=== PATIENT | male | born 1960 | race Hispanic/Latino ===

== ENCOUNTER 2017-02-12 14:01 | Inpatient (IN) | payer MEDICARE, MEDICAID ==
[2017-02-12 14:02] VITALS: BMI 24.1
[2017-02-12] MEDS ORDERED: Sodium Chloride 0.9% 1,000 ML IV STA (15:14)
--- NOTE | 2017-02-12 15:34 | ED PDOC ---
HPI: General Adult Time Seen by Provider: 02/12/17 15:03 Chief Complaint (Nursing): Weakness/Neurological Deficit Chief Complaint (Provider): Weakness History Per: Patient History/Exam Limitations: no limitations Onset/Duration Of Symptoms: Days Have you had recent travel within the past 21 days to any of the following countries: [place], [place], [place] or [place]?: No Current Symptoms Are (Timing): Still Present Severity: Moderate Additional History Per: Patient Additional Complaint(s): The pt is a 56yo male, presents to the ED complaining of weakness for the past three days secondary to not eating. Pt reports when he attempts to eat, he feels burning pain in his epigastric region which is immediately followed by episodes of watery vomiting. Pt reports he is very hungry and has become progressively weaker. Pt states his bowel movements have been normal and denies any fever or chills. At present, offers no additional medical complaints. PMD: None provided Past Medical History Reviewed: Historical Data, Nursing Documentation, Vital Signs Vital Signs: Last Vital Signs Temp 97 F L 02/12/17 14:06 Pulse 76 02/12/17 14:06 Resp 20 02/12/17 14:06 BP Pulse Ox 98 02/12/17 15:43 - Medical History PMH: Kidney Stones, Chronic Kidney Disease, Seizures Denies: HIV - Surgical History Surgical History: Appendectomy, Tonsillectomy - Family History Family History: States: Unknown Family Hx - Immunization History Hx Tetanus Toxoid Vaccination: Yes (a few months ago) - Home Medications Home Medications: Ambulatory Orders Medication Instructions Recorded Gabapentin [Neurontin] 300 mg PO QID 01/04/17 Phenytoin, Extended [Dilantin] 100 mg PO QID 01/04/17 ALPRAZolam [Xanax] 1 mg PO Q12 tab 01/06/17 Enoxaparin [Lovenox] 30 mg SC DAILY syr 01/06/17 Lidocaine 5% [Lidoderm] 1 ea TD DAILY patch 01/06/17 traMADol [Ultram] 50 mg PO Q4 PRN #0 tab 01/06/17 - Allergies Allergies/Adverse Reactions: Allergies Allergy/AdvReac Type Severity Reaction Status Date / Time No Known Allergies Allergy Verified 02/12/17 14:06 Review of Systems ROS Statement: Except As Marked, All Systems Reviewed And Found Negative Constitutional: Positive for: Weakness. Negative for: Fever, Chills Gastrointestinal: Positive for: Vomiting, Abdominal Pain (burning epigastric) Physical Exam - Reviewed Nursing Documentation Reviewed: Yes Vital Signs Reviewed: Yes - Physical Exam Appears: Positive for: Well, Non-toxic, No Acute Distress Head Exam: Positive for: ATRAUMATIC, NORMAL INSPECTION, NORMOCEPHALIC Skin: Positive for: Normal Color, Dry Eye Exam: Positive for: Normal appearance Cardiovascular/Chest: Positive for: Regular Rate, Rhythm Respiratory: Negative for: Respiratory Distress Gastrointestinal/Abdominal: Positive for: Tenderness (mild epigastric tenderness ) Neurologic/Psych: Positive for: Alert, Oriented - Laboratory Results Result Diagrams: 02/12/17 15:50 02/12/17 15:50 - ECG O2 Sat by Pulse Oximetry: 98 (RA) Pulse Ox Interpretation: Normal Medical Decision Making Medical Decision Making: Time: 1520 Impression: Pancreatitis, gastritis Plan: -- CMP -- Lipase -- CBC -- IV Fluids -- Pepcid 20 mg IV -- Zofran 4 mg IV --Reassess 1800: Pt. tolerating PO but still feeling weak. Spoke with Dr. Hutchison who relayed that patient is decompensating at home, recommends admission for obs med /surg. Scribe Attestation: Documented by Sonja Knowles acting as a scribe for Matthew Louis MD Provider Scribe Attestation: All medical record entries made by the Scribe were at my direction and personally dictated by me. I have reviewed the chart and agree that the record accurately reflects my personal performance of the history, physical exam, medical decision making, and the department course for this patient. I have also personally directed, reviewed, and agree with the discharge instructions and disposition. Disposition - Clinical Impression Clinical Impression: Vomiting, Dehydration, Falls frequently - Patient ED Disposition Is Patient to be Admitted: Yes - Disposition Disposition Time: 18:00 Condition: STABLE
[2017-02-12 16:31] LABS: BASO % 0.7 % (0.0-2.0); EOS # 0.1 K/uL (0.0-0.7); EOS % 1.5 % (0.0-4.0); LYMPH # 1.4 K/uL (1.0-4.3); LYMPH % 28.4 % (20.0-40.0); MEAN CELL VOLUME 88.6 fl (80.0-94.0); MEAN CORPUSCULAR HEMOGLOBIN 28.9 pg (27.0-31.0); MEAN CORPUSCULAR HGB CONC 32.6 g/dL (33.0-37.0); MEAN PLATELET VOLUME 8.1 fl (7.2-11.7); MONO # 0.3 K/uL (0.0-0.8); MONO % 5.7 % (0.0-10.0); NEUT # 3.1 K/uL (1.8-7.0); NEUT % 63.7 % (50.0-75.0); RED CELL DISTRIBUTION WIDTH 13.7 % (11.5-14.5); WHITE BLOOD COUNT 4.8 K/uL (4.8-10.8)
[2017-02-12 16:42] LABS: ALB/GLOB RATIO 1.2 (1.0-2.1); ALKALINE PHOSPHATASE 81 U/L (38-126); ALT/SGPT 27 U/L (21-72); AST/SGOT 21 U/L (17-59); BILIRUBIN,TOTAL 0.8 mg/dl (0.2-1.3); BLOOD UREA NITROGEN 18 mg/dl (9-20); CALCIUM 9.3 mg/dL (8.4-10.2); CARBON DIOXIDE 28 mmol/L (22-30); CHLORIDE 103 mmol/L (98-107); GFR AFRICAN-AMERICAN > 60; GLUCOSE,RANDOM 97 mg/dL (75-110); LIPASE 32 U/L (23-300); POTASSIUM 4.5 MMOL/L (3.6-5.0); SODIUM 144 mmol/l (132-148); TOTAL PROTEIN 7.4 G/DL (6.3-8.2)
[2017-02-12] MEDS ORDERED: Dextrose 5%/0.45% NS 1,000 ML IV SCH (23:15)
[2017-02-13] MEDS: Dextrose 5%/0.45% NS 1,000 ML IV SCH ×2 (00:09→13:14)
--- NOTE | 2017-02-13 14:06 | CP.PCM.CON ---
<NinoskaCharlotte - Last Filed: 02/13/17 13:54> History of Present Illness - History of Present Illness History of Present Illness: GI Consult: Dr. Martin Pt is a 56M with PMHx significant for cerebral palsy and seizures who was admitted to [facility] for complaints of frequent falls and difficulty swallowing. Pt was admitted to the hospital last July for similar complaints and at that time a barium swallow was performed and GI was consulted. Results of the barium swallow were negative during that admission. Pt now states that his condition has worsened since that visit. He admits to difficulty swallowing solids and recently also having trouble with liquids. He claims he has lost 10lbs in the last 2 weeks and feels weak. He also admits to experiencing more falls. Pt states he feels the food gets stuck in his throat and denies chest pain or burning. Denies abdominal pain, N/V, F/C. PMHx: as stated above PSHX: appendectomy SocialHx: lives at home with nephew, uses cane/walker. Admits to drug abuse in the past. Denies EtOH/smoking NKDA Review of Systems - Review of Systems All systems: reviewed and no additional remarkable complaints except (as per HPI ) Past Patient History - Past Medical History & Family History Past Medical History?: Yes - Past Social History Smoking Status: Never Smoked Home Situation {Lives}: With Family - CARDIAC Hx Cardiac Disorders: No - PULMONARY Hx Respiratory Disorders: No - NEUROLOGICAL Hx Seizures: Yes - HEENT Hx HEENT Problems: No - RENAL Hx Chronic Kidney Disease: Yes Hx Kidney Stones: Yes - ENDOCRINE/METABOLIC Hx Endocrine Disorders: No - HEMATOLOGICAL/ONCOLOGICAL Hx AIDS: No Hx Human Immunodeficiency Virus (HIV): No - INTEGUMENTARY Hx Dermatological Problems: No - MUSCULOSKELETAL/RHEUMATOLOGICAL Hx Falls: Yes Other/Comment: cerebral palsy - GASTROINTESTINAL Hx Gastrointestinal Disorders: No - GENITOURINARY/GYNECOLOGICAL Hx Genitourinary Disorders: No - PSYCHIATRIC Hx Psychophysiologic Disorder: No Hx Substance Use: No - SURGICAL HISTORY Hx Appendectomy: Yes Hx Tonsillectomy: Yes - ANESTHESIA Hx Anesthesia: Yes Hx Anesthesia Reactions: No Hx Malignant Hyperthermia: No Meds Allergies/Adverse Reactions: Allergies Allergy/AdvReac Type Severity Reaction Status Date / Time No Known Allergies Allergy Verified 02/12/17 14:06 - Medications Medications: Current Medications Alprazolam (Xanax) 0.25 mg PO BID [facility] Stop: 02/19/17 23:01 Last Admin: 02/13/17 00:09 Dose: 0.25 mg Gabapentin (Neurontin) 100 mg PO TID [facility] Last Admin: 02/13/17 13:15 Dose: 100 mg Dextrose/Sodium Chloride (Dextrose 5%/0.45% Ns 1000 Ml) 1,000 mls @ 80 mls/hr IV .[id number] [facility] Stop: 02/13/17 23:31 Last Admin: 02/13/17 13:14 Dose: 80 mls/hr Pantoprazole Sodium (Protonix Inj) 20 mg IVP BID [facility] Phenytoin Sodium (Dilantin) 100 mg PO TID [facility] Last Admin: 02/13/17 13:15 Dose: 100 mg Physical Exam - Constitutional Appears: No Acute Distress - Head Exam Head Exam: ATRAUMATIC, NORMOCEPHALIC - ENT Exam ENT Exam: Mucous Membranes Moist Additional comments: no lesions/masses noted in the back of the throat - Respiratory Exam Respiratory Exam: NORMAL BREATHING PATTERN - Cardiovascular Exam Cardiovascular Exam: RRR - GI/Abdominal Exam GI & Abdominal Exam: Soft. absent: Distended, Guarding, Tenderness - Extremities Exam Extremities exam: Positive for: pedal pulses present. Negative for: tenderness - Neurological Exam Neurological exam: Alert, Oriented x3 - Skin Skin Exam: Dry, Warm Results - Vital Signs Recent Vital Signs: Last Vital Signs Temp 98.1 F 02/13/17 09:00 Pulse 84 02/13/17 11:00 Resp 20 02/13/17 09:00 BP 117/73 02/13/17 09:00 Pulse Ox 98 02/13/17 11:00 - Labs Result Diagrams: 02/12/17 15:50 02/12/17 15:50 Assessment & Plan - Assessment and Plan (Free Text) Assessment: 56M with dysphagia Plan: - Keep pt NPO for now - will f/u with speech/swallow eval - pt's complaints are mostly of food getting stuck in the throat so may obtain a videofluoroscopic swallow eval if speech pathology eval is inconclusive - plan for possible endoscopy on Monday - pt seen and examined with Dr. Martin. Plan discussed Charlotte Xiao, PGY-2 <Reuben Martin - Last Filed: 02/13/17 19:28> Meds - Medications Medications: Current Medications Alprazolam (Xanax) 0.25 mg PO BID [facility] Stop: 02/19/17 23:01 Last Admin: 02/13/17 16:11 Dose: 0.25 mg Gabapentin (Neurontin) 100 mg PO TID [facility] Last Admin: 02/13/17 16:12 Dose: 100 mg Dextrose/Sodium Chloride (Dextrose 5%/0.45% Ns 1000 Ml) 1,000 mls @ 80 mls/hr IV .[id number] [facility] Stop: 02/13/17 23:31 Last Admin: 02/13/17 13:14 Dose: 80 mls/hr Ondansetron HCl (Zofran Inj) 4 mg IVP Q6 PRN PRN Reason: Nausea/Vomiting Pantoprazole Sodium (Protonix Inj) 20 mg IVP BID [facility] Last Admin: 02/13/17 16:27 Dose: 20 mg Phenytoin Sodium (Dilantin) 100 mg PO TID [facility] Last Admin: 02/13/17 16:11 Dose: 100 mg Results - Vital Signs Recent Vital Signs: Last Vital Signs Temp 97.1 F L 02/13/17 17:00 Pulse 82 02/13/17 17:00 Resp 18 02/13/17 17:00 BP 130/85 02/13/17 17:00 Pulse Ox 99 02/13/17 17:00 - Labs Result Diagrams: 02/12/17 15:50 02/12/17 15:50 Labs: Laboratory Results - last 24 hr 02/13/17 15:38 Urine Opiates Screen Positive H Urine Methadone Screen Negative Ur Barbiturates Screen Negative Ur Phencyclidine Scrn Negative Ur Amphetamines Screen Negative U Benzodiazepines Scrn Negative U Oth Cocaine Metabols Negative U Cannabinoids Screen Negative Assessment & Plan (1) Dysphagia Assessment and Plan: Patient seen at bedside with Dr. Xiao. Will proceed with workup as outlined. Will start PPI. After swallowing evaluation possible upper endoscopy. Status: Acute
--- NOTE | 2017-02-13 14:37 | CARD ---
APPROVED REPORT EKG Measurement Heart [id number] <Conclusion> Normal sinus rhythm Normal ECG
--- NOTE | 2017-02-13 20:44 | CP.PCM.PN ---
Subjective - Date & Time of Evaluation Date of Evaluation: 02/12/17 Time of Evaluation: 22:22 - Subjective Subjective: 56 yo with hx of CP Asthma seizure disorder admitted for difficulty swallowing and recurrent falls Objective - Vital Signs/Intake and Output Vital Signs (last 24 hours): Temp Pulse Resp BP Pulse Ox 98.1 F 83 20 147/86 99 02/13/17 19:25 02/13/17 19:25 02/13/17 19:25 02/13/17 19:25 02/13/17 19:25 - Medications Medications: Current Medications Alprazolam (Xanax) 0.25 mg PO BID [facility] Stop: 02/19/17 23:01 Last Admin: 02/13/17 16:11 Dose: 0.25 mg Gabapentin (Neurontin) 100 mg PO TID [facility] Last Admin: 02/13/17 16:12 Dose: 100 mg Dextrose/Sodium Chloride (Dextrose 5%/0.45% Ns 1000 Ml) 1,000 mls @ 80 mls/hr IV .[id number] [facility] Stop: 02/13/17 23:31 Last Admin: 02/13/17 13:14 Dose: 80 mls/hr Ondansetron HCl (Zofran Inj) 4 mg IVP Q6 PRN PRN Reason: Nausea/Vomiting Pantoprazole Sodium (Protonix Inj) 20 mg IVP BID [facility] Last Admin: 02/13/17 16:27 Dose: 20 mg Phenytoin Sodium (Dilantin) 100 mg PO TID [facility] Last Admin: 02/13/17 16:11 Dose: 100 mg - Respiratory Exam Respiratory Exam: NORMAL BREATHING PATTERN - Cardiovascular Exam Cardiovascular Exam: REGULAR RHYTHM - GI/Abdominal Exam GI & Abdominal Exam: Normal Bowel Sounds Assessment and Plan - Assessment and Plan (Free Text) Assessment: CP seizure disorder recurrent falls Neuro Difficulty swallowing GI
--- NOTE | 2017-02-13 20:47 | CP.PCM.HP ---
History of Present Illness - History of Present Illness History of Present Illness: 56 yo admitted for recurrent falls and difficulty swallowing Present on Admission - Present on Admission Any Indicators Present on Admission: No Past Patient History - Past Medical History & Family History Past Medical History?: Yes - Past Social History Smoking Status: Never Smoked Home Situation {Lives}: With Family - CARDIAC Hx Cardiac Disorders: No - PULMONARY Hx Respiratory Disorders: No - NEUROLOGICAL Hx Seizures: Yes - HEENT Hx HEENT Problems: No - RENAL Hx Chronic Kidney Disease: Yes Hx Kidney Stones: Yes - ENDOCRINE/METABOLIC Hx Endocrine Disorders: No - HEMATOLOGICAL/ONCOLOGICAL Hx AIDS: No Hx Human Immunodeficiency Virus (HIV): No - INTEGUMENTARY Hx Dermatological Problems: No - MUSCULOSKELETAL/RHEUMATOLOGICAL Hx Falls: Yes Other/Comment: cerebral palsy - GASTROINTESTINAL Hx Gastrointestinal Disorders: No - GENITOURINARY/GYNECOLOGICAL Hx Genitourinary Disorders: No - PSYCHIATRIC Hx Psychophysiologic Disorder: No Hx Substance Use: No - SURGICAL HISTORY Hx Appendectomy: Yes Hx Tonsillectomy: Yes - ANESTHESIA Hx Anesthesia: Yes Hx Anesthesia Reactions: No Hx Malignant Hyperthermia: No Meds Allergies/Adverse Reactions: Allergies Allergy/AdvReac Type Severity Reaction Status Date / Time No Known Allergies Allergy Verified 02/12/17 14:06 Physical Exam - Respiratory Exam Respiratory Exam: NORMAL BREATHING PATTERN - Cardiovascular Exam Cardiovascular Exam: REGULAR RHYTHM - GI/Abdominal Exam GI & Abdominal Exam: Normal Bowel Sounds Results - Vital Signs Recent Vital Signs: Last Vital Signs Temp 98.1 F 02/13/17 19:25 Pulse 83 02/13/17 19:25 Resp 20 02/13/17 19:25 BP 147/86 02/13/17 19:25 Pulse Ox 99 02/13/17 19:25 - Labs Result Diagrams: 02/12/17 15:50 02/12/17 15:50 Labs: Laboratory Results - last 24 hr 02/13/17 15:38 Urine Opiates Screen Positive H Urine Methadone Screen Negative Ur Barbiturates Screen Negative Ur Phencyclidine Scrn Negative Ur Amphetamines Screen Negative U Benzodiazepines Scrn Negative U Oth Cocaine Metabols Negative U Cannabinoids Screen Negative Assessment & Plan - Assessment and Plan (Free Text) Assessment: CP seizure disorder recurrent falls Neuro Difficulty swallowing GI - Date & Time Date: 02/13/17 Time: 22:22
--- NOTE | 2017-02-14 11:41 | CP.PCM.PN ---
Subjective - Date & Time of Evaluation Date of Evaluation: 02/14/17 Time of Evaluation: 11:38 - Subjective Subjective: GI: Dr. Martin Pt seen and examined. No acute overnight events. States he feels a little better but overall feels the same. He was started on a liquid diet and he states he is able to tolerate it somewhat. Denies other complaints at this time. Objective - Vital Signs/Intake and Output Vital Signs (last 24 hours): Temp Pulse Resp BP Pulse Ox 97.6 F 80 20 153/91 H 98 02/14/17 08:19 02/14/17 08:19 02/14/17 08:19 02/14/17 08:19 02/14/17 08:19 - Medications Medications: Current Medications Alprazolam (Xanax) 0.25 mg PO BID [facility] Stop: 02/19/17 23:01 Last Admin: 02/14/17 09:38 Dose: 0.25 mg Gabapentin (Neurontin) 100 mg PO TID [facility] Last Admin: 02/14/17 09:39 Dose: 100 mg Ondansetron HCl (Zofran Inj) 4 mg IVP Q6 PRN PRN Reason: Nausea/Vomiting Pantoprazole Sodium (Protonix Inj) 20 mg IVP BID [facility] Last Admin: 02/13/17 16:27 Dose: 20 mg Phenytoin Sodium (Dilantin) 100 mg PO TID [facility] Last Admin: 02/14/17 09:39 Dose: 100 mg - Constitutional Appears: Well, No Acute Distress - Head Exam Head Exam: ATRAUMATIC, NORMOCEPHALIC - ENT Exam ENT Exam: Mucous Membranes Moist - Respiratory Exam Respiratory Exam: NORMAL BREATHING PATTERN - Cardiovascular Exam Cardiovascular Exam: RRR - GI/Abdominal Exam GI & Abdominal Exam: Soft. absent: Distended, Guarding, Tenderness - Extremities Exam Extremities Exam: absent: Tenderness - Neurological Exam Neurological Exam: Alert, Awake, Oriented x3 - Skin Skin Exam: Dry, Warm Assessment and Plan - Assessment and Plan (Free Text) Assessment: 56M with cerebral palsy, presenting with dysphagia Plan: - speech/swallow eval done yesterday and pt started on FLD - since cause of pt's dysphagia is still unclear at this time, will plan for upper endoscopy tomorrow AM - plan discussed with patient and he is willing and eager to get the procedure done - case/plan discussed with Dr. Mario Xiao, PGY-2
[2017-02-14 13:49] LABS: PARTIAL THROMBOPLASTIN TIME 27.2 SECONDS (23.3-32.5)
[2017-02-14] MEDS ORDERED: Lidocaine 1% Inj (20ml) ONE (14:28)
--- NOTE | 2017-02-14 14:52 | PCM.SURG1 ---
Surgeon's Initial Post Op Note - Surgeon's Notes Surgeon: Roosevelt Vp Design: None Type of Anesthesia: Local Pre-Operative Diagnosis: IV access. Operative Findings: Patent right basilic vein Post-Operative Diagnosis: IV access Operation Performed: Right basilic vein 33cm SL 4F PICC placed. Specimen/Specimens Removed: None Estimated Blood Loss: EBL {In ML}: 1 Date of Surgery/Procedure: 02/14/17 Time of Surgery/Procedure: 14:50
--- NOTE | 2017-02-14 18:53 | VASCULAR ---
Procedure: Ultrasound and fluoroscopically placed Right upper extremity PICC. Clinical indication: Long-term IV antibiotics. Technique: The relative risks and indications of the procedure were explained to the patient and written informed consent obtained. The patient was placed supine on the angiographic table and the right arm prepped and draped in the usual sterile fashion. A tourniquet was applied to the right axilla. 1% lidocaine was used to anesthetize the skin and soft tissues at the puncture site above the elbow. The right basilic vein was punctured under direct ultrasound guidance with a micropuncture set. A permanent image was stored. A 0.018 guidewire was advanced centrally and used to measure the length to the SVC/RA junction. A 4 Mongolian single-lumen PICC, size 33 cm, was advanced to the SVC/RA junction under fluoroscopic guidance. The catheter was flushed and secured. The patient tolerated the procedure well. Postprocedure chest image was obtained to ensure location of the catheter tip at the SVC right atrial junction. Impression: Ultrasound and fluoroscopically placed right upper extremity PICC. A 4 Mongolian single-lumen PICC, size 33 cm was advanced to the SVC/RA junction. PICC ready for use.
--- NOTE | 2017-02-14 19:26 | CP.PCM.CON ---
History of Present Illness - History of Present Illness History of Present Illness: Mr. Pulliam is a 56-year-old man with a past medical history of multi-drug abuse ( last used 10-12 bags of heroin on Monday), cerebral palsy, seizure disorder, spinal stenosis (lumbar) and non-compliance with medications, who states that he has been having more falls recently and is having difficulty with swallowing. Both these issues are essentially chronic, but have gotten worse. He does not have much help at home since his mother about 1.5 years ago. His nephew helps him at home, but he is not usually around. Review of Systems - Review of Systems All systems: reviewed and no additional remarkable complaints except - Constitutional Constitutional: Anorexia, Frequent Falls, Headache, Weight Loss - EENT Eyes: As Per HPI Ears: As Per HPI Nose/Mouth/Throat: As Per HPI - Cardiovascular Cardiovascular: As Per HPI - Respiratory Respiratory: As Per HPI - Gastrointestinal Gastrointestinal: Dysphagia, Loose Stools - Genitourinary Genitourinary: As Per HPI - Neurological Neurological: As Per HPI - Psychiatric Psychiatric: As Per HPI Past Patient History - Past Medical History & Family History Past Medical History?: Yes Past Family History: Reviewed and not pertinent - Past Social History Smoking Status: Former Smoker Alcohol: Occasional Drugs: Cocaine, Opiates Home Situation {Lives}: With Family - CARDIAC Hx Cardiac Disorders: No - PULMONARY Hx Respiratory Disorders: No - NEUROLOGICAL Hx Seizures: Yes - HEENT Hx HEENT Problems: No - RENAL Hx Chronic Kidney Disease: Yes Hx Kidney Stones: Yes - ENDOCRINE/METABOLIC Hx Endocrine Disorders: No - HEMATOLOGICAL/ONCOLOGICAL Hx AIDS: No Hx Human Immunodeficiency Virus (HIV): No - INTEGUMENTARY Hx Dermatological Problems: No - MUSCULOSKELETAL/RHEUMATOLOGICAL Hx Falls: Yes Other/Comment: cerebral palsy - GASTROINTESTINAL Hx Gastrointestinal Disorders: No - GENITOURINARY/GYNECOLOGICAL Hx Genitourinary Disorders: No - PSYCHIATRIC Hx Psychophysiologic Disorder: No Hx Substance Use: No - SURGICAL HISTORY Hx Appendectomy: Yes Hx Tonsillectomy: Yes - ANESTHESIA Hx Anesthesia: Yes Hx Anesthesia Reactions: No Hx Malignant Hyperthermia: No Meds Allergies/Adverse Reactions: Allergies Allergy/AdvReac Type Severity Reaction Status Date / Time No Known Allergies Allergy Verified 02/12/17 14:06 - Medications Medications: Current Medications Alprazolam (Xanax) 0.25 mg PO Q12 [facility] Stop: 02/21/17 21:01 Gabapentin (Neurontin) 100 mg PO TID [facility] Last Admin: 02/14/17 16:41 Dose: 100 mg Ondansetron HCl (Zofran Inj) 4 mg IVP Q6 PRN PRN Reason: Nausea/Vomiting Pantoprazole Sodium (Protonix Inj) 20 mg IVP BID [facility] Last Admin: 02/14/17 16:42 Dose: 20 mg Phenytoin Sodium (Dilantin) 100 mg PO TID [facility] Last Admin: 02/14/17 16:41 Dose: 100 mg Physical Exam - Constitutional Appears: No Acute Distress - Head Exam Head Exam: ATRAUMATIC - Eye Exam Eye Exam: EOMI, Normal appearance, PERRL Pupil Exam: NORMAL ACCOMODATION, PERRL - ENT Exam ENT Exam: Mucous Membranes Moist, Normal Exam - Neck Exam Neck exam: Positive for: Normal Inspection - Respiratory Exam Respiratory Exam: Clear to Auscultation Bilateral, NORMAL BREATHING PATTERN - Cardiovascular Exam Cardiovascular Exam: REGULAR RHYTHM - GI/Abdominal Exam GI & Abdominal Exam: Normal Bowel Sounds, Soft. absent: Tenderness - Neurological Exam Neurological exam: Abnormal Gait, CN II-XII Intact Additional comments: Contracted upper extremities bilaterally R>L, reflexes are brisk throughout, strength is 4/5 throughout with difficulty in dorsiflexion in the LLE and plantarflexion weakness in RLE; Sensation is intact to LT/P/T, Gait was not assessed Results - Vital Signs Recent Vital Signs: Last Vital Signs Temp 97.5 F L 02/14/17 15:51 Pulse 92 H 02/14/17 15:51 Resp 20 02/14/17 15:51 BP 151/49 H 02/14/17 15:51 Pulse Ox 100 02/14/17 15:51 - Labs Result Diagrams: 02/12/17 15:50 02/12/17 15:50 Labs: Laboratory Results - last 24 hr 02/14/17 13:18 PT 16.4 H INR 1.58 H APTT 27.2 Assessment & Plan (1) Cerebral palsy Status: Chronic Priority: Medium Comment: Recommend physical therapy and occupational therapy as well as support with possible home health aid. (2) Heroin overdose Status: Acute Priority: Medium Comment: Likely the reason for his frequent falls, in addition to not taking his seizure medications and generalized non-compliance. I recommend resuming gabapentin at 300 mg TID and using clonadine as needed for withdrawal symptoms per primary team. (3) Seizure disorder Status: Chronic Priority: Medium Comment: Will need to be loaded with dilantin since he has not been taking it. I recommend loading with 10 mg/Kg and continuing 100 mg TID.
[2017-02-14] MEDS ORDERED: Phenytoin 100 mg/2 ml Inj IVP ONE (19:45)
--- NOTE | 2017-02-14 20:45 | CP.PCM.PN ---
Subjective - Date & Time of Evaluation Date of Evaluation: 02/14/17 Time of Evaluation: 22:22 - Subjective Subjective: Above noted Objective - Vital Signs/Intake and Output Vital Signs (last 24 hours): Temp Pulse Resp BP Pulse Ox 98.5 F 82 20 145/91 H 100 02/14/17 19:23 02/14/17 19:23 02/14/17 19:23 02/14/17 19:23 02/14/17 19:23 - Medications Medications: Current Medications Alprazolam (Xanax) 0.25 mg PO Q12 [facility] Stop: 02/21/17 21:01 Gabapentin (Neurontin) 100 mg PO TID [facility] Last Admin: 02/14/17 16:41 Dose: 100 mg Ondansetron HCl (Zofran Inj) 4 mg IVP Q6 PRN PRN Reason: Nausea/Vomiting Pantoprazole Sodium (Protonix Inj) 20 mg IVP BID [facility] Last Admin: 02/14/17 16:42 Dose: 20 mg Phenytoin Sodium (Dilantin) 100 mg PO TID [facility] Last Admin: 02/14/17 16:41 Dose: 100 mg - Labs Labs: PT 16.4 SECONDS (9.6-11.2) H 02/14/17 13:18 INR 1.58 (0.92-1.08) H 02/14/17 13:18 APTT 27.2 SECONDS (23.3-32.5) 02/14/17 13:18 - Respiratory Exam Respiratory Exam: NORMAL BREATHING PATTERN - Cardiovascular Exam Cardiovascular Exam: Tachycardia - GI/Abdominal Exam GI & Abdominal Exam: Normal Bowel Sounds Assessment and Plan - Assessment and Plan (Free Text) Assessment: CP seizure disorder recurrent falls PT OT Neuro note appreciated Difficulty swallowing GI
[2017-02-15] MEDS ORDERED: Propofol 10 mg/ml Inj (20 ML) ONE (07:36)
[2017-02-15] MEDS ORDERED: Sodium Chloride 0.9% 250 ML IV ONE (08:08)
--- NOTE | 2017-02-15 11:26 | CP.PCM.PN ---
Subjective - Date & Time of Evaluation Date of Evaluation: 02/15/17 Time of Evaluation: 11:24 - Subjective Subjective: GI: Dr. Martin Pt seen and examined. No acute overnight events. Pt states he feels ok but continues to complain of difficulty swallowing. Denies abdominal pain, N/V, F/ C. Objective - Vital Signs/Intake and Output Vital Signs (last 24 hours): Temp Pulse Resp BP Pulse Ox 97.3 F L 77 18 159/88 H 100 02/15/17 08:08 02/15/17 08:08 02/15/17 08:08 02/15/17 08:08 02/15/17 08:08 Intake and Output: 02/15/17 02/15/17 06:59 18:59 Intake Total 200 Balance 200 - Medications Medications: Current Medications Alprazolam (Xanax) 0.25 mg PO Q12 [facility] Stop: 02/21/17 21:01 Last Admin: 02/15/17 10:15 Dose: 0.25 mg Gabapentin (Neurontin) 100 mg PO TID [facility] Last Admin: 02/15/17 10:16 Dose: 100 mg Ondansetron HCl (Zofran Inj) 4 mg IVP Q6 PRN PRN Reason: Nausea/Vomiting Pantoprazole Sodium (Protonix Inj) 20 mg IVP BID [facility] Last Admin: 02/15/17 10:16 Dose: 20 mg Phenytoin Sodium (Dilantin) 100 mg PO TID [facility] Last Admin: 02/15/17 10:15 Dose: 100 mg - Labs Labs: PT 28.0 SECONDS (9.6-11.2) H D 02/15/17 06:10 INR 2.69 (0.92-1.08) H D 02/15/17 06:10 APTT 27.2 SECONDS (23.3-32.5) 02/14/17 13:18 - Constitutional Appears: Well, No Acute Distress - Head Exam Head Exam: ATRAUMATIC, NORMOCEPHALIC - ENT Exam ENT Exam: Mucous Membranes Moist - Respiratory Exam Respiratory Exam: NORMAL BREATHING PATTERN - Cardiovascular Exam Cardiovascular Exam: RRR - GI/Abdominal Exam GI & Abdominal Exam: Soft. absent: Tenderness - Extremities Exam Extremities Exam: absent: Tenderness - Neurological Exam Neurological Exam: Alert, Awake, Oriented x3 - Skin Skin Exam: Dry, Intact, Warm Assessment and Plan - Assessment and Plan (Free Text) Assessment: 56M with cerebral palsy and dysphagia s/p upper endoscopy Plan: - Results of endoscopy significant for esophagitis, biopsies obtained, as well as hiatal hernia - Although these findings could certainly contribute to pt's symptoms it doesn' t completely explain his persistent complaint of dysphagia - Will order a modified barium swallow study to further evaluate swallowing - can be re-started on FLD for now - plan discussed with Dr. Mario Xiao, PGY-2
--- NOTE | 2017-02-15 13:57 | CP.PCM.PCO ---
Assessment/Plan - Assessment/Plan Assessment (Free Text): Paged by RN after patient suffered a fall to the floor. Patient seen shortly after. Patient states he was reaching for his call weir and slipped to the ground. Denies LOC, trauma to head, no pain to any limb. Vitals WNL. SR 74 on machine deicer element winder. Patient in no distress. Discussed with Dr. Hutchison, will continue to closely monitor. - Problems Patient Problems: Problem List (Active/Current) Problem Status Priority Diagnosed Code Dehydration Acute E86.0 Dysphagia Acute R13.10 Falls frequently Acute R29.6 Vomiting Acute R11.10 Cerebral palsy Chronic Medium G80.9
[2017-02-15 19:22] LABS: HEMATOCRIT 44.3 % (35.0-51.0); MEAN CELL VOLUME 86.5 fl (80.0-94.0); MEAN CORPUSCULAR HEMOGLOBIN 28.8 pg (27.0-31.0); MEAN CORPUSCULAR HGB CONC 33.3 g/dL (33.0-37.0); RED CELL DISTRIBUTION WIDTH 13.4 % (11.5-14.5); WHITE BLOOD COUNT 9.4 K/uL (4.8-10.8)
[2017-02-15 19:35] LABS: BLOOD UREA NITROGEN 8 mg/dl (9-20); CALCIUM 9.6 mg/dL (8.4-10.2); CARBON DIOXIDE 26 mmol/L (22-30); CHLORIDE 103 mmol/L (98-107); GFR AFRICAN-AMERICAN > 60; GLUCOSE,RANDOM 116 mg/dL (75-110); POTASSIUM 3.2 MMOL/L (3.6-5.0); SODIUM 145 mmol/l (132-148)
--- NOTE | 2017-02-15 20:20 | CP.PCM.PN ---
Subjective - Date & Time of Evaluation Date of Evaluation: 02/15/17 Time of Evaluation: 22:22 - Subjective Subjective: Endoscopy Esophagitis Gastritis Still with diarrhea and difficulty sleeping Objective - Vital Signs/Intake and Output Vital Signs (last 24 hours): Temp Pulse Resp BP Pulse Ox 97.8 F 75 20 126/84 100 02/15/17 20:00 02/15/17 20:00 02/15/17 20:00 02/15/17 20:00 02/15/17 20:00 Intake and Output: 02/15/17 02/16/17 18:59 06:59 Intake Total 200 Balance 200 - Medications Medications: Current Medications Alprazolam (Xanax) 0.25 mg PO Q12 [facility] Stop: 02/21/17 21:01 Last Admin: 02/15/17 10:15 Dose: 0.25 mg Gabapentin (Neurontin) 100 mg PO TID [facility] Last Admin: 02/15/17 16:16 Dose: 100 mg Ondansetron HCl (Zofran Inj) 4 mg IVP Q6 PRN PRN Reason: Nausea/Vomiting Pantoprazole Sodium (Protonix Inj) 20 mg IVP BID [facility] Last Admin: 02/15/17 16:16 Dose: 20 mg Phenytoin Sodium (Dilantin) 100 mg PO TID [facility] Last Admin: 02/15/17 16:16 Dose: 100 mg - Labs Labs: 02/15/17 18:30 02/15/17 19:00 PT 28.0 SECONDS (9.6-11.2) H D 02/15/17 06:10 INR 2.69 (0.92-1.08) H D 02/15/17 06:10 APTT 27.2 SECONDS (23.3-32.5) 02/14/17 13:18 - Respiratory Exam Respiratory Exam: NORMAL BREATHING PATTERN - Cardiovascular Exam Cardiovascular Exam: REGULAR RHYTHM - GI/Abdominal Exam GI & Abdominal Exam: Normal Bowel Sounds Assessment and Plan - Assessment and Plan (Free Text) Assessment: CP seizure disorder recurrent falls PT OT Neuro note appreciated Difficulty swallowing GI Endoscopy Esophagitis Gastritis Barium swallow scheduled Opiod abuse withdrawal?? Clonidine Psych
[2017-02-16] MEDS: Potassium CL 10 MEQ/50 ML 50 ML IVPB SCH ×3 (00:24→02:56)
[2017-02-16] MEDS: Dextrose 5%/0.45% NS 1,000 ML IV SCH ×2 (00:26→09:00)
[2017-02-16 08:17] LABS: HEMATOCRIT 41.2 % (35.0-51.0); MEAN CELL VOLUME 85.2 fl (80.0-94.0); MEAN CORPUSCULAR HEMOGLOBIN 29.1 pg (27.0-31.0); MEAN CORPUSCULAR HGB CONC 34.2 g/dL (33.0-37.0); RED CELL DISTRIBUTION WIDTH 13.7 % (11.5-14.5); WHITE BLOOD COUNT 7.7 K/uL (4.8-10.8)
[2017-02-16 08:34] LABS: ALB/GLOB RATIO 1.3 (1.0-2.1); ALKALINE PHOSPHATASE 89 U/L (38-126); ALT/SGPT 19 U/L (21-72); AST/SGOT 14 U/L (17-59); BILIRUBIN,TOTAL 0.8 mg/dl (0.2-1.3); BLOOD UREA NITROGEN 7 mg/dl (9-20); CALCIUM 9.2 mg/dL (8.4-10.2); CARBON DIOXIDE 27 mmol/L (22-30); CHLORIDE 104 mmol/L (98-107); GFR AFRICAN-AMERICAN > 60; GLUCOSE,RANDOM 112 mg/dL (75-110); POTASSIUM 3.1 MMOL/L (3.6-5.0); SODIUM 144 mmol/l (132-148); TOTAL PROTEIN 7.1 G/DL (6.3-8.2)
[2017-02-16 09:39] LABS: PARTIAL THROMBOPLASTIN TIME 22.9 SECONDS (23.3-32.5)
[2017-02-16] MEDS ORDERED: Barium Sulfate Susp 0.1% w/v, 0.1% w/w 450 mL Bottle PO ONE (10:13)
--- NOTE | 2017-02-16 10:58 | CP.PCM.CON ---
History of Present Illness - History of Present Illness History of Present Illness: psychiatry consult reason: opioid withdrawal ordered by dr. aviles cc: " i've never gone through withdrawals like this" hpi: pt is a 10-15 bag a day heroin user. he is here for dysphagia and weakness. he last used heroin on 02/12. he is describing diarrhea, cramps, chills , rhinorrhea, nausea and body aches. he does not use other drugs per his report. he denies any psychiatric illness and does not have psychiatric treatment providers. he states he is not depressed, not having suicidal thoughts and not having any problems with his thoughts. he does not feel he needs psychiatric services despite stating he started to use heroin after his mother 9 months ago. he is asking for help with withdrawal. he does not want any substance abuse treatment beyond this. past psych: denies social: was incarcerated for 7 years- was caught with supply of [employer]. now he supports self with ssi. lives with nephew who he states is supportive medical: cerebral palsy, spinal stenosis. mse: alert, oriented x 3. mood is "fine" affect appropriate. pt denies si/hi. denies a/v hallucinations. speech is dysarthric secondary to his cp, but is goal directed and linear. fair i/j. assessment: opioid dependence in withdrawal uncomplicated recommendation: have ordered medications for withdrawal have advised pt be refered to inpt/outpt substance abuse services and or to individual therapy to address his feelings of sadness after the of mother , but pt refused. no need for 1:1 as pt is not expressing any thoughts of self harm. if team is worried about falls, may benefit from PT consult or 1:1 for fall precaution would consider in home services as it appears pt may struggle to care for self at home. Past Patient History - Past Medical History & Family History Past Medical History?: Yes Past Family History: Reviewed and not pertinent - Past Social History Smoking Status: Former Smoker Alcohol: Occasional Drugs: Cocaine, Opiates Home Situation {Lives}: With Family - CARDIAC Hx Cardiac Disorders: No - PULMONARY Hx Respiratory Disorders: No - NEUROLOGICAL Hx Seizures: Yes - HEENT Hx HEENT Problems: No - RENAL Hx Chronic Kidney Disease: Yes Hx Kidney Stones: Yes - ENDOCRINE/METABOLIC Hx Endocrine Disorders: No - HEMATOLOGICAL/ONCOLOGICAL Hx AIDS: No Hx Human Immunodeficiency Virus (HIV): No - INTEGUMENTARY Hx Dermatological Problems: No - MUSCULOSKELETAL/RHEUMATOLOGICAL Hx Falls: Yes Other/Comment: cerebral palsy - GASTROINTESTINAL Hx Gastrointestinal Disorders: No - GENITOURINARY/GYNECOLOGICAL Hx Genitourinary Disorders: No - PSYCHIATRIC Hx Emotional Abuse: No Hx Physical Abuse: No - SURGICAL HISTORY Hx Appendectomy: Yes Hx Tonsillectomy: Yes - ANESTHESIA Hx Anesthesia: Yes Hx Anesthesia Reactions: No Hx Malignant Hyperthermia: No Meds Allergies/Adverse Reactions: Allergies Allergy/AdvReac Type Severity Reaction Status Date / Time No Known Allergies Allergy Verified 02/12/17 14:06 - Medications Medications: Current Medications Alprazolam (Xanax) 0.25 mg PO Q12 [facility] Stop: 02/21/17 21:01 Last Admin: 02/16/17 08:56 Dose: 0.25 mg [facility]idine [facility] ([facility] Stop: 02/17/17 23:59 Cyclobenzaprine HCl (Flexeril) 10 mg PO TID PRN PRN Reason: Muscle spasm Gabapentin (Neurontin) 100 mg PO TID [facility] Last Admin: 02/16/17 08:53 Dose: 100 mg Dextrose/Sodium Chloride (Dextrose 5%/0.45% Ns 1000 Ml) 1,000 mls @ 80 mls/hr IV .[id number] [facility] Stop: 02/16/17 22:01 Last Admin: 02/16/17 00:26 Dose: 80 mls/hr Loperamide HCl (Imodium) 2 mg PO QID PRN PRN Reason: Diarrhea Ondansetron HCl (Zofran Inj) 4 mg IVP Q6 PRN PRN Reason: Nausea/Vomiting Pantoprazole Sodium (Protonix Inj) 20 mg IVP BID [facility] Last Admin: 02/16/17 08:53 Dose: 20 mg Phenytoin Sodium (Dilantin) 100 mg PO TID [facility] Last Admin: 02/16/17 08:53 Dose: 100 mg Trazodone HCl (Desyrel) 50 mg PO HS PRN PRN Reason: Insomnia Results - Vital Signs Recent Vital Signs: Last Vital Signs Temp 97.6 F 02/16/17 08:00 Pulse 88 02/16/17 08:00 Resp 18 02/16/17 08:00 BP 151/87 H 02/16/17 08:00 Pulse Ox 99 02/16/17 08:00 - Labs Result Diagrams: 02/16/17 08:00 02/16/17 08:00 Labs: Laboratory Results - last 24 hr 02/15/17 02/15/17 02/16/17 18:30 19:00 08:00 WBC 9.4 D 7.7 RBC 5.12 4.84 Hgb 14.7 14.1 Hct 44.3 41.2 MCV 86.5 D 85.2 MCH 28.8 29.1 MCHC 33.3 34.2 RDW 13.4 13.7 Plt Count 267 262 PT 12.3 H D INR 1.18 H D APTT Sodium 145 144 Potassium 3.2 L 3.1 L Chloride 103 104 Carbon Dioxide 26 27 Anion Gap 19 16 BUN 8 L 7 L Creatinine 0.5 L 0.5 L Est GFR ( Amer) > 60 > 60 Est GFR (Non-Af Amer) > 60 > 60 Random Glucose 116 H 112 H Calcium 9.6 9.2 Total Bilirubin 0.8 AST 14 L D ALT 19 L D Alkaline Phosphatase 89 Total Protein 7.1 Albumin 4.0 Globulin 3.1 Albumin/Globulin Ratio 1.3 02/16/17 09:10 WBC RBC Hgb Hct MCV MCH MCHC RDW Plt Count PT 12.0 H INR 1.15 H APTT 22.9 L Sodium Potassium Chloride Carbon Dioxide Anion Gap BUN Creatinine Est GFR ( Amer) Est GFR (Non-Af Amer) Random Glucose Calcium Total Bilirubin AST ALT Alkaline Phosphatase Total Protein Albumin Globulin Albumin/Globulin Ratio
[2017-02-16] MEDS: Potassium Chloride 20 mEq ER Tab PO SCH (14:54)
--- NOTE | 2017-02-16 17:04 | RAD ---
PROCEDURE: Modified barium swallow study. HISTORY: dysphagia COMPARISON: Comparison is made to the previous study dated 08/09/2016 TECHNIQUE: Under fluoroscopic guidance, barium meals of various consistency were administered to the patient by the speech pathologist. FINDINGS: No penetration or aspiration was observed during this study. IMPRESSION: No penetration or aspiration observed. Please refer to the detailed report and recommendations of the speech pathologist.
--- NOTE | 2017-02-16 20:48 | CP.PCM.PN ---
Subjective - Date & Time of Evaluation Date of Evaluation: 02/16/17 Time of Evaluation: 22:22 - Subjective Subjective: Psychiatry note appreciated Barium swallow no aspiration Objective - Vital Signs/Intake and Output Vital Signs (last 24 hours): Temp Pulse Resp BP Pulse Ox 97.5 F L 93 H 18 121/73 100 02/16/17 20:44 02/16/17 20:44 02/16/17 20:44 02/16/17 20:44 02/16/17 20:44 - Medications Medications: Current Medications Alprazolam (Xanax) 0.25 mg PO Q12 [facility] Stop: 02/21/17 21:01 Last Admin: 02/16/17 20:23 Dose: 0.25 mg [facility]onidine [facility] ([facility]res[facility] Stop: 02/17/17 23:59 Last Admin: 02/16/17 16:59 Dose: Not Given Cyclobenzaprine HCl (Flexeril) 10 mg PO TID PRN PRN Reason: Muscle spasm Gabapentin (Neurontin) 100 mg PO TID [facility] Last Admin: 02/16/17 16:21 Dose: 100 mg Dextrose/Sodium Chloride (Dextrose 5%/0.45% Ns 1000 Ml) 1,000 mls @ 80 mls/hr IV .[id number] [facility] Stop: 02/16/17 22:01 Last Admin: 02/16/17 09:00 Dose: Not Given Loperamide HCl (Imodium) 2 mg PO QID PRN PRN Reason: Diarrhea Last Admin: 02/16/17 20:23 Dose: 2 mg Ondansetron HCl (Zofran Inj) 4 mg IVP Q6 PRN PRN Reason: Nausea/Vomiting Pantoprazole Sodium (Protonix Inj) 20 mg IVP BID [facility] Last Admin: 02/16/17 08:53 Dose: 20 mg Phenytoin Sodium (Dilantin) 100 mg PO TID [facility] Last Admin: 02/16/17 16:20 Dose: 100 mg Potassium Chloride (K-Dur 20 Meq Er Tab) 40 meq PO DAILY [facility] Last Admin: 02/16/17 14:54 Dose: 40 meq Trazodone HCl (Desyrel) 50 mg PO HS PRN PRN Reason: Insomnia - Labs Labs: 02/16/17 08:00 02/16/17 08:00 PT 12.0 SECONDS (9.6-11.2) H 02/16/17 09:10 INR 1.15 (0.92-1.08) H 02/16/17 09:10 APTT 22.9 SECONDS (23.3-32.5) L 02/16/17 09:10 - Respiratory Exam Respiratory Exam: NORMAL BREATHING PATTERN - Cardiovascular Exam Cardiovascular Exam: REGULAR RHYTHM - GI/Abdominal Exam GI & Abdominal Exam: Normal Bowel Sounds Assessment and Plan - Assessment and Plan (Free Text) Assessment: CP seizure disorder recurrent falls PT OT Neuro note appreciated Difficulty swallowing GI Endoscopy Esophagitis Gastritis Barium swallow no aspiration Opiod abuse withdrawal?? Clonidine trazadone Psych note appreciated
--- NOTE | 2017-02-16 23:58 | CP.PCM.PN ---
Subjective - Date & Time of Evaluation Date of Evaluation: 02/16/17 Time of Evaluation: 14:00 - Subjective Subjective: Tolerated soft foods a little better today Objective - Vital Signs/Intake and Output Vital Signs (last 24 hours): Temp Pulse Resp BP Pulse Ox 97.5 F L 92 H 18 126/73 100 02/16/17 20:44 02/16/17 23:20 02/16/17 20:44 02/16/17 23:20 02/16/17 20:44 - Medications Medications: Current Medications Alprazolam (Xanax) 0.25 mg PO Q12 [facility] Stop: 02/21/17 21:01 Last Admin: 02/16/17 20:23 Dose: 0.25 mg [facility]idine [facility] Stop: 02/17/17 23:59 Last Admin: 02/16/17 23:20 Dose: 0.1 mg Cyclobenzaprine HCl (Flexeril) 10 mg PO TID PRN PRN Reason: Muscle spasm Gabapentin (Neurontin) 100 mg PO TID [facility] Last Admin: 02/16/17 16:21 Dose: 100 mg Loperamide HCl (Imodium) 2 mg PO QID PRN PRN Reason: Diarrhea Last Admin: 02/16/17 20:23 Dose: 2 mg Ondansetron HCl (Zofran Inj) 4 mg IVP Q6 PRN PRN Reason: Nausea/Vomiting Pantoprazole Sodium (Protonix Inj) 20 mg IVP BID [facility] Last Admin: 02/16/17 08:53 Dose: 20 mg Phenytoin Sodium (Dilantin) 100 mg PO TID [facility] Last Admin: 02/16/17 16:20 Dose: 100 mg Potassium Chloride (K-Dur 20 Meq Er Tab) 40 meq PO DAILY [facility] Last Admin: 02/16/17 14:54 Dose: 40 meq Trazodone HCl (Desyrel) 50 mg PO HS PRN PRN Reason: Insomnia - Labs Labs: 02/16/17 08:00 02/16/17 08:00 PT 12.0 SECONDS (9.6-11.2) H 02/16/17 09:10 INR 1.15 (0.92-1.08) H 02/16/17 09:10 APTT 22.9 SECONDS (23.3-32.5) L 02/16/17 09:10 - Head Exam Head Exam: ATRAUMATIC - Eye Exam Eye Exam: Normal appearance - Neck Exam Neck Exam: Full ROM - Respiratory Exam Respiratory Exam: Clear to Ausculation Bilateral - Cardiovascular Exam Cardiovascular Exam: REGULAR RHYTHM, +S1, +S2 - GI/Abdominal Exam GI & Abdominal Exam: Soft, Normal Bowel Sounds. absent: Tenderness Assessment and Plan (1) Dysphagia Assessment & Plan: Upper endoscopy had demonstrated severe esophagitis and biopsies are pending. Receiving high dose PPI and appears somewhat better today. Continue current diet and pantoprazole. Status: Acute
[2017-02-17 08:29] LABS: BLOOD UREA NITROGEN 11 mg/dl (9-20); CALCIUM 8.8 mg/dL (8.4-10.2); CARBON DIOXIDE 26 mmol/L (22-30); CHLORIDE 104 mmol/L (98-107); GFR AFRICAN-AMERICAN > 60; GLUCOSE,RANDOM 101 mg/dL (75-110); POTASSIUM 3.8 MMOL/L (3.6-5.0); SODIUM 143 mmol/l (132-148)
[2017-02-17] MEDS: Potassium Chloride 20 mEq ER Tab PO SCH (09:18)
--- NOTE | 2017-02-17 19:30 | CP.PCM.PN ---
Subjective - Date & Time of Evaluation Date of Evaluation: 02/17/17 Time of Evaluation: 22:22 - Subjective Subjective: Improving but still with diarrhea Objective - Vital Signs/Intake and Output Vital Signs (last 24 hours): Temp Pulse Resp BP Pulse Ox 97.8 F 103 H 18 142/91 H 99 02/17/17 16:31 02/17/17 16:43 02/17/17 16:31 02/17/17 16:43 02/17/17 16:31 - Medications Medications: Current Medications Alprazolam (Xanax) 0.25 mg PO Q12 [facility] Stop: 02/21/17 21:01 Last Admin: 02/17/17 09:20 Dose: Not Given [facility]res[facility] Stop: 02/17/17 23:59 Last Admin: 02/17/17 16:43 Dose: 0.1 mg Cyclobenzaprine HCl (Flexeril) 10 mg PO TID PRN PRN Reason: Muscle spasm Gabapentin (Neurontin) 100 mg PO TID [facility] Last Admin: 02/17/17 16:44 Dose: 100 mg Loperamide HCl (Imodium) 2 mg PO QID PRN PRN Reason: Diarrhea Last Admin: 02/17/17 16:44 Dose: 2 mg Ondansetron HCl (Zofran Inj) 4 mg IVP Q6 PRN PRN Reason: Nausea/Vomiting Pantoprazole Sodium (Protonix Inj) 20 mg IVP BID [facility] Last Admin: 02/17/17 16:44 Dose: 20 mg Phenytoin Sodium (Dilantin) 100 mg PO TID [facility] Last Admin: 02/17/17 16:44 Dose: 100 mg Potassium Chloride (K-Dur 20 Meq Er Tab) 40 meq PO DAILY [facility] Last Admin: 02/17/17 09:18 Dose: 40 meq Trazodone HCl (Desyrel) 50 mg PO HS PRN PRN Reason: Insomnia - Labs Labs: 02/16/17 08:00 02/17/17 08:00 PT 12.0 SECONDS (9.6-11.2) H 02/16/17 09:10 INR 1.15 (0.92-1.08) H 02/16/17 09:10 APTT 22.9 SECONDS (23.3-32.5) L 02/16/17 09:10 - Respiratory Exam Respiratory Exam: NORMAL BREATHING PATTERN - Cardiovascular Exam Cardiovascular Exam: REGULAR RHYTHM - GI/Abdominal Exam GI & Abdominal Exam: Normal Bowel Sounds Assessment and Plan - Assessment and Plan (Free Text) Assessment: CP seizure disorder recurrent falls PT OT Neuro Difficulty swallowing Endoscopy Esophagitis Gastritis Barium swallow no aspiration GI Opiod abuse withdrawal?? GI sx Clonidine trazadone Psych
[2017-02-18] MEDS: Potassium Chloride 20 mEq ER Tab PO SCH (09:20)
--- NOTE | 2017-02-18 23:47 | CP.PCM.PN ---
Subjective - Date & Time of Evaluation Date of Evaluation: 02/18/17 Time of Evaluation: 22:22 - Subjective Subjective: Above noted Objective - Vital Signs/Intake and Output Vital Signs (last 24 hours): Temp Pulse Resp BP Pulse Ox 98.4 F 89 20 158/64 H 96 02/18/17 16:07 02/18/17 16:07 02/18/17 16:07 02/18/17 16:07 02/18/17 16:07 - Medications Medications: Current Medications Alprazolam (Xanax) 0.25 mg PO Q12 [facility] Stop: 02/21/17 21:01 Last Admin: 02/18/17 22:06 Dose: 0.25 mg Cyclobenzaprine HCl (Flexeril) 10 mg PO TID PRN PRN Reason: Muscle spasm Gabapentin (Neurontin) 100 mg PO TID [facility] Last Admin: 02/18/17 17:21 Dose: 100 mg Loperamide HCl (Imodium) 2 mg PO QID PRN PRN Reason: Diarrhea Last Admin: 02/17/17 16:44 Dose: 2 mg Ondansetron HCl (Zofran Inj) 4 mg IVP Q6 PRN PRN Reason: Nausea/Vomiting Pantoprazole Sodium (Protonix Inj) 20 mg IVP BID [facility] Last Admin: 02/18/17 17:22 Dose: 20 mg Phenytoin Sodium (Dilantin) 100 mg PO TID [facility] Last Admin: 02/18/17 17:21 Dose: 100 mg Potassium Chloride (K-Dur 20 Meq Er Tab) 40 meq PO DAILY [facility] Last Admin: 02/18/17 09:20 Dose: 40 meq Trazodone HCl (Desyrel) 50 mg PO HS PRN PRN Reason: Insomnia - Labs Labs: 02/16/17 08:00 02/17/17 08:00 PT 12.0 SECONDS (9.6-11.2) H 02/16/17 09:10 INR 1.15 (0.92-1.08) H 02/16/17 09:10 APTT 22.9 SECONDS (23.3-32.5) L 02/16/17 09:10 - Respiratory Exam Respiratory Exam: NORMAL BREATHING PATTERN - Cardiovascular Exam Cardiovascular Exam: REGULAR RHYTHM - GI/Abdominal Exam GI & Abdominal Exam: Normal Bowel Sounds Assessment and Plan - Assessment and Plan (Free Text) Assessment: CP seizure disorder recurrent falls PT OT Neuro Difficulty swallowing Endoscopy Severe Esophagitis Gastritis Barium swallow no aspiration PPI as per GI Opiod abuse withdrawal?? GI sx hypokalemia Clonidine trazadone Psych
[2017-02-19] MEDS: Potassium Chloride 20 mEq ER Tab PO SCH (08:44)
[2017-02-19 14:37] LABS: HEMATOCRIT 38.5 % (35.0-51.0); MEAN CELL VOLUME 87.1 fl (80.0-94.0); MEAN CORPUSCULAR HGB CONC 33.3 g/dL (33.0-37.0); RED CELL DISTRIBUTION WIDTH 13.5 % (11.5-14.5); WHITE BLOOD COUNT 6.4 K/uL (4.8-10.8)
[2017-02-19 14:47] LABS: ALB/GLOB RATIO 1.3 (1.0-2.1); ALKALINE PHOSPHATASE 92 U/L (38-126); ALT/SGPT 25 U/L (21-72); AST/SGOT 17 U/L (17-59); BILIRUBIN,TOTAL 0.3 mg/dl (0.2-1.3); BLOOD UREA NITROGEN 14 mg/dl (9-20); CALCIUM 8.8 mg/dL (8.4-10.2); CARBON DIOXIDE 24 mmol/L (22-30); CHLORIDE 104 mmol/L (98-107); GFR AFRICAN-AMERICAN > 60; GLUCOSE,RANDOM 91 mg/dL (75-110); POTASSIUM 4.8 MMOL/L (3.6-5.0); SODIUM 143 mmol/l (132-148); TOTAL PROTEIN 6.8 G/DL (6.3-8.2)
--- NOTE | 2017-02-19 16:21 | CP.PCM.PN ---
Subjective - Date & Time of Evaluation Date of Evaluation: 02/19/17 Time of Evaluation: 22:22 - Subjective Subjective: Continues to improve Objective - Vital Signs/Intake and Output Vital Signs (last 24 hours): Temp Pulse Resp BP Pulse Ox 97.5 F L 97 H 20 116/78 96 02/19/17 12:00 02/19/17 12:00 02/19/17 12:00 02/19/17 12:00 02/19/17 12:00 - Medications Medications: Current Medications Alprazolam (Xanax) 0.25 mg PO Q12 [facility] Stop: 02/21/17 21:01 Last Admin: 02/19/17 08:46 Dose: 0.25 mg Cyclobenzaprine HCl (Flexeril) 10 mg PO TID PRN PRN Reason: Muscle spasm Gabapentin (Neurontin) 100 mg PO TID [facility] Last Admin: 02/19/17 13:12 Dose: 100 mg Loperamide HCl (Imodium) 2 mg PO QID PRN PRN Reason: Diarrhea Last Admin: 02/17/17 16:44 Dose: 2 mg Ondansetron HCl (Zofran Inj) 4 mg IVP Q6 PRN PRN Reason: Nausea/Vomiting Pantoprazole Sodium (Protonix Inj) 20 mg IVP BID [facility] Last Admin: 02/19/17 08:45 Dose: 20 mg Phenytoin Sodium (Dilantin) 100 mg PO TID [facility] Last Admin: 02/19/17 13:12 Dose: 100 mg Potassium Chloride (K-Dur 20 Meq Er Tab) 40 meq PO DAILY [facility] Last Admin: 02/19/17 08:44 Dose: 40 meq Trazodone HCl (Desyrel) 50 mg PO HS PRN PRN Reason: Insomnia - Labs Labs: 02/19/17 14:30 02/19/17 14:30 PT 11.7 SECONDS (9.6-11.2) H 02/19/17 14:30 INR 1.13 (0.92-1.08) H 02/19/17 14:30 APTT 22.9 SECONDS (23.3-32.5) L 02/16/17 09:10 - Respiratory Exam Respiratory Exam: Wheezes - Cardiovascular Exam Cardiovascular Exam: REGULAR RHYTHM - GI/Abdominal Exam GI & Abdominal Exam: Normal Bowel Sounds Assessment and Plan - Assessment and Plan (Free Text) Assessment: CP seizure disorder recurrent falls PT OT Dilantin Neurontin Difficulty swallowing Endoscopy Severe Esophagitis Gastritis Barium swallow no aspiration PPI as per GI Opiod abuse withdrawal?? GI sx hypokalemia resolved Clonidine trazadone Psych Repeat labs
--- NOTE | 2017-02-19 20:28 | CP.PCM.PN ---
Subjective - Date & Time of Evaluation Date of Evaluation: 02/19/17 Time of Evaluation: 11:00 - Subjective Subjective: Patient continues to feel improvement in swallowing Objective - Vital Signs/Intake and Output Vital Signs (last 24 hours): Temp Pulse Resp BP Pulse Ox 97.9 F 91 H 20 105/69 96 02/19/17 16:00 02/19/17 16:00 02/19/17 16:00 02/19/17 16:00 02/19/17 16:00 - Medications Medications: Current Medications Alprazolam (Xanax) 0.25 mg PO Q12 [facility] Stop: 02/21/17 21:01 Last Admin: 02/19/17 08:46 Dose: 0.25 mg Cyclobenzaprine HCl (Flexeril) 10 mg PO TID PRN PRN Reason: Muscle spasm Gabapentin (Neurontin) 100 mg PO TID [facility] Last Admin: 02/19/17 13:12 Dose: 100 mg Loperamide HCl (Imodium) 2 mg PO QID PRN PRN Reason: Diarrhea Last Admin: 02/17/17 16:44 Dose: 2 mg Ondansetron HCl (Zofran Inj) 4 mg IVP Q6 PRN PRN Reason: Nausea/Vomiting Pantoprazole Sodium (Protonix Inj) 20 mg IVP BID [facility] Last Admin: 02/19/17 16:32 Dose: 20 mg Phenytoin Sodium (Dilantin) 100 mg PO TID [facility] Last Admin: 02/19/17 16:32 Dose: 100 mg Potassium Chloride (K-Dur 20 Meq Er Tab) 40 meq PO DAILY [facility] Last Admin: 02/19/17 08:44 Dose: 40 meq Trazodone HCl (Desyrel) 50 mg PO HS PRN PRN Reason: Insomnia - Labs Labs: 02/19/17 14:30 02/19/17 14:30 PT 11.7 SECONDS (9.6-11.2) H 02/19/17 14:30 INR 1.13 (0.92-1.08) H 02/19/17 14:30 APTT 22.9 SECONDS (23.3-32.5) L 02/16/17 09:10 - Head Exam Head Exam: ATRAUMATIC - Eye Exam Eye Exam: Normal appearance - ENT Exam ENT Exam: Mucous Membranes Moist - Neck Exam Neck Exam: Normal Inspection - Respiratory Exam Respiratory Exam: Clear to Ausculation Bilateral - Cardiovascular Exam Cardiovascular Exam: REGULAR RHYTHM, +S1, +S2 - GI/Abdominal Exam GI & Abdominal Exam: Soft, Normal Bowel Sounds Assessment and Plan (1) Dysphagia Status: Acute (2) Esophagitis determined by biopsy Assessment & Plan: Severe reflux esophagitis present on upper endoscopy. Receiving pantoprazole and patient clinically better. I told him complete resolution may take some time. Status: Acute
[2017-02-20 04:17] VITALS: RESP 18
[2017-02-20] MEDS: Potassium Chloride 20 mEq ER Tab PO SCH (08:48)
[2017-02-20 12:09] VITALS: BP 127/81; PULSE 97; TEMP 98; O2SAT 97
--- NOTE | 2017-02-20 21:10 | CP.PCM.PN ---
Subjective - Date & Time of Evaluation Date of Evaluation: 02/20/17 Time of Evaluation: 22:22 - Subjective Subjective: Above noted Objective - Vital Signs/Intake and Output Vital Signs (last 24 hours): Temp Pulse Resp BP Pulse Ox 98 F 97 H 18 127/81 97 02/20/17 12:08 02/20/17 12:08 02/20/17 12:08 02/20/17 12:08 02/20/17 12:08 - Labs Labs: 02/19/17 14:30 02/19/17 14:30 PT 11.7 SECONDS (9.6-11.2) H 02/19/17 14:30 INR 1.13 (0.92-1.08) H 02/19/17 14:30 APTT 22.9 SECONDS (23.3-32.5) L 02/16/17 09:10 - Respiratory Exam Respiratory Exam: NORMAL BREATHING PATTERN - Cardiovascular Exam Cardiovascular Exam: REGULAR RHYTHM - GI/Abdominal Exam GI & Abdominal Exam: Normal Bowel Sounds Assessment and Plan - Assessment and Plan (Free Text) Assessment: CP seizure disorder recurrent falls PT OT Dilantin Neurontin Difficulty swallowing Endoscopy Severe Esophagitis Gastritis Barium swallow no aspiration PPI as per GI Opiod abuse withdrawal?? GI sx hypokalemia resolved Clonidine trazadone Psych Repeat labs okay
== END 2017-02-20 16:15 | disposition home or self-care (01) | DRG 392 ==
LOC: H.ER 14:01 → H.ERHOLD 18:24 → H.TEL 02-13 03:38 → OBSVTOIN 02-13 12:52 → H.TEL 02-13 23:51
PROVIDERS: ADMIT Family Medicine Geriatric Medicine; ATTEND Family Medicine Geriatric Medicine
PROC: 02HV33Z Insertion of Infusion Device into Superior Vena Cava, Percutaneous Approach (ICD-10-PCS; 2017-02-14)
PROC: B518ZZA Fluoroscopy of Superior Vena Cava, Guidance (ICD-10-PCS; 2017-02-14)
PROC: B548ZZA Ultrasonography of Superior Vena Cava, Guidance (ICD-10-PCS; 2017-02-14)
PROC: 0DB68ZX Excision of Stomach, Via Natural or Artificial Opening Endoscopic, Diagnostic (ICD-10-PCS; 2017-02-15)
PROC: 0DB98ZX Excision of Duodenum, Via Natural or Artificial Opening Endoscopic, Diagnostic (ICD-10-PCS; 2017-02-15)
PROC: 0DB38ZX Excision of Lower Esophagus, Via Natural or Artificial Opening Endoscopic, Diagnostic (ICD-10-PCS; principal; 2017-02-15 08:00)
DX: K21.0 Gastro-esophageal reflux disease with esophagitis (principal); R13.10 Dysphagia, unspecified; F11.23 Opioid dependence with withdrawal; E86.0 Dehydration; G80.9 Cerebral palsy, unspecified; G40.909 Epilepsy, unspecified, not intractable, without status epilepticus; K29.70 Gastritis, unspecified, without bleeding; R29.6 Repeated falls; N18.9 Chronic kidney disease, unspecified; Z87.891 Personal history of nicotine dependence; Z91.14 Patient's other noncompliance with medication regimen; E87.6 Hypokalemia; K20.9 Esophagitis, unspecified; Z91.81 History of falling; K44.9 Diaphragmatic hernia without obstruction or gangrene

== ENCOUNTER 2017-07-17 14:59 | Inpatient (IN) | payer MEDICARE, MEDICAID ==
[2017-07-17 15:00] VITALS: BMI 24.1
--- NOTE | 2017-07-17 15:28 | ED PDOC ---
HPI: Altered Mental Status Time Seen by Provider: 07/17/17 15:10 Chief Complaint (Nursing): Seizure Chief Complaint (Provider): altered mental status History Per: EMS Additional Complaint(s): EMS called to home for patient's altered mental status. From previous visits, pt has h/o heroin abuse and seizure disorder and cerebral palsy. Currently pt is poorly responsive and unable to give any history. PMD Dr Segovia Past Medical History Reviewed: Historical Data, Nursing Documentation, Vital Signs, Unable To Obtain (from patient) Vital Signs: Last Vital Signs Temp 97.0 F L 07/17/17 15:02 Pulse 51 L 07/17/17 15:02 Resp 14 07/17/17 15:02 BP 112/70 07/17/17 15:02 Pulse Ox 99 07/17/17 15:02 - Medical History PMH: Kidney Stones, Chronic Kidney Disease, Seizures Denies: HIV Other PMH: Cerebral palsy - Surgical History Surgical History: Appendectomy, Tonsillectomy - Family History Family History: States: Unknown Family Hx - Immunization History Hx Tetanus Toxoid Vaccination: Yes (a few months ago) - Home Medications Home Medications: Ambulatory Orders Medication Instructions Recorded Pantoprazole [Protonix EC Tab] 40 mg PO DAILY #30 ect 02/20/17 Mirtazapine [Remeron] 15 mg PO HS #15 tab 04/24/17 Phenytoin, Extended [Dilantin 100 mg PO Q8 #15 cer 04/24/17 Kapseals] Sertraline [Zoloft] 100 mg PO DAILY #15 tab 04/24/17 traZODone [Desyrel] 50 mg PO HS #15 tab 04/24/17 - Allergies Allergies/Adverse Reactions: Allergies Allergy/AdvReac Type Severity Reaction Status Date / Time No Known Allergies Allergy Verified 04/18/17 15:46 Review of Systems Review Of Systems: ROS cannot be obtained secondary to pt's inabilty to answer questions. Physical Exam - Reviewed Nursing Documentation Reviewed: Yes Vital Signs Reviewed: Yes - Physical Exam Appears: Positive for: In Acute Distress (obtunded, appears chronically ill and cachectic) Head Exam: Positive for: ATRAUMATIC, NORMOCEPHALIC Skin: Positive for: Warm, Dry Eye Exam: Positive for: EOMI, PERRL ([id number]), Other (+corneal reflex) ENT: Positive for: Other (poor dentition, dry muc membranes, positive gag reflex ) Neck: Positive for: Trachea Midline (no stepoff) Cardiovascular/Chest: Positive for: Chest Non Tender, Tachycardia. Negative for : Murmur Respiratory: Positive for: Other (sonorous breath sound). Negative for: Accessory Muscle Use, Rales, Stridor, Wheezing, Respiratory Distress Gastrointestinal/Abdominal: Positive for: Soft. Negative for: Tenderness Back: Positive for: Normal Inspection Extremity: Positive for: Other (poor muscle bulk, bilateral foot drop, lesion on RIGHT anterior ankle dry yellow (possible attempt venous access)). Negative for: Pedal Edema Lymphatic: Positive for: Adenopathy Neurologic/Psych: Positive for: Other (Deeply lethargic but with sternal rub, will wake up for few seconds and answer 1-2 questions, then fall back asleep). Negative for: Alert, Oriented - Laboratory Results Result Diagrams: 07/21/17 04:20 07/21/17 04:20 Interpretation Of Abn Labs: uds +benzo +opiate +methadone. No detectable phenytoin level. No emergently significant lab abnormalities - ECG O2 Sat by Pulse Oximetry: 99 Pulse Ox Interpretation: Normal - Critical Care Total Time (In Min): 30 Documented Critical Care: Time excludes all time spent performint seperately billable procedures Medical Decision Making Medical Decision Making: Lethargy, possible seizure Vitals otherwise stable and pt with no respiratory distress/depression Continue to observe in ER, imaging/labs ordered. Anticipate slow arousal from possible multiple sedating substances. Accession No. : [id number] Patient Name / ID : FAIZAN HANLEY M / [id number] Exam Date : 07/17/2017 16:03:02 ( Approved ) Study Comment : Sex / Age : M / 56Y Creator : Jonathan Kohli MD Dictator : Jonathan Kohli MD Icd 9 Coder : Electro Winning Operator : Jonathan Kohli MD Approver2 : Report Date : 07/17/2017 17:43:10 My Comment : HISTORY: AMS COMPARISON: Portable chest 10/22/2016 FINDINGS: LUNGS: No active pulmonary disease. PLEURA: No significant pleural effusion identified, no pneumothorax apparent. CARDIOVASCULAR: Normal. OSSEOUS STRUCTURES: No significant abnormalities. VISUALIZED UPPER ABDOMEN: Normal. OTHER FINDINGS: None. IMPRESSION: No acute cardiopulmonary disease identified or significant interval change 10/22. Accession No. : [id number] Patient Name / ID : FAIZAN HANLEY M / [id number] Exam Date : 07/17/2017 15:50:50 ( Approved ) Study Comment : Sex / Age : M / 56Y Creator : Jonathan Kohli MD Dictator : Jonathan Kohli MD Icd 9 Coder : Electro Winning Operator : Jonathan Kohli MD Approver2 : Report Date : 07/17/2017 16:27:20 My Comment : PROCEDURE: CT HEAD WITHOUT CONTRAST. HISTORY: ams COMPARISON: Unenhanced head CT 08/08/2016 TECHNIQUE: Axial computed tomography images were obtained through the head/brain without intravenous contrast. Radiation dose: Total exam DLP = 1174 mGy-cm. This CT exam was performed using one or more of the following dose reduction techniques: Automated exposure control, adjustment of the mA and/or kV according to patient size, and/or use of iterative reconstruction technique. FINDINGS: HEMORRHAGE: No intracranial hemorrhage. BRAIN: There is no mass effect or suspicious extra-axial collection identified. There is no cortical or medullary edema. Extra-axial spaces appear grossly nonfocal. Grade matter loya-white matter differentiation remains preserved and is unchanged in the interval grossly. VENTRICLES: Unremarkable. No hydrocephalus. CALVARIUM: Unremarkable. PARANASAL SINUSES: Unremarkable as visualized. No significant inflammatory changes. MASTOID AIR CELLS: Unremarkable as visualized. No inflammatory changes. OTHER FINDINGS: None. IMPRESSION: Normal CT of the Head. No significant change compared to prior head CT 2015. MRI or CT is available for follow-up if clinically warranted Pt continues to be deeply lethargic in ER. Dr Segovia PMD admit for polysubstance intoxication, recurrent seizure. SUGAR segovia for hospitalization. SUGAR Barajas for ICU placement. Pt had initial IV and labs drawn in LEFT upper extremity. However pt's line displaced and RNs unable to place new one. I placed peripheral RIGHT EJ 22g IV under sterile conditions. Good blood return and good saline flush. Disposition - Clinical Impression Clinical Impression: Recurrent seizures, Cerebral palsy, Drug intoxication, Polysubstance abuse - Disposition Disposition Time: 18:00 Condition: CRITICAL - Pt Status Changed To: Hospital Disposition Of: Inpatient - Admit Certification Admit to Inpatient:: After my assessment, the patient will require hospitalization for at least two midnights. This is because of the severity of symptoms shown, intensity of services needed, and/or the medical risk in this patient being treated as an outpatient. - POA Present On Arrival: Falls Or Trauma
[2017-07-17 15:40] LABS: ABG ALLEN TEST YES; ARTERIAL BLOOD GAS HCO3 27.5 mmol/L (21-28); ARTERIAL BLOOD GAS PH 7.44 (7.35-7.45); ARTERIAL BLOOD GAS PO2 120 mm/Hg (80-100)
[2017-07-17 16:23] LABS: BASO % 0.6 % (0.0-2.0); EOS # 0.1 K/uL (0.0-0.7); HEMATOCRIT 41.8 % (35.0-51.0); LYMPH # 1.3 K/uL (1.0-4.3); MEAN CELL VOLUME 88.4 fl (80.0-94.0); MEAN CORPUSCULAR HEMOGLOBIN 28.9 pg (27.0-31.0); MEAN CORPUSCULAR HGB CONC 32.7 g/dL (33.0-37.0); MEAN PLATELET VOLUME 8.1 fl (7.2-11.7); MONO # 0.4 K/uL (0.0-0.8); MONO % 7.3 % (0.0-10.0); NEUT # 3.2 K/uL (1.8-7.0); NEUT % 64.1 % (50.0-75.0); RED CELL DISTRIBUTION WIDTH 13.6 % (11.5-14.5); WHITE BLOOD COUNT 4.9 K/uL (4.8-10.8)
--- NOTE | 2017-07-17 16:28 | CT ---
PROCEDURE: CT HEAD WITHOUT CONTRAST. HISTORY: ams COMPARISON: Unenhanced head CT 08/08/2016 TECHNIQUE: Axial computed tomography images were obtained through the head/brain without intravenous contrast. Radiation dose: Total exam DLP = 1174 mGy-cm. This CT exam was performed using one or more of the following dose reduction techniques: Automated exposure control, adjustment of the mA and/or kV according to patient size, and/or use of iterative reconstruction technique. FINDINGS: HEMORRHAGE: No intracranial hemorrhage. BRAIN: There is no mass effect or suspicious extra-axial collection identified. There is no cortical or medullary edema. Extra-axial spaces appear grossly nonfocal. Grade matter loya-white matter differentiation remains preserved and is unchanged in the interval grossly. VENTRICLES: Unremarkable. No hydrocephalus. CALVARIUM: Unremarkable. PARANASAL SINUSES: Unremarkable as visualized. No significant inflammatory changes. MASTOID AIR CELLS: Unremarkable as visualized. No inflammatory changes. OTHER FINDINGS: None. IMPRESSION: Normal CT of the Head. No significant change compared to prior head CT 08/08/2016. MRI or CT is available for follow-up if clinically warranted
[2017-07-17 16:37] LABS: ALB/GLOB RATIO 1.3 (1.0-2.1); ALCOHOL SERUM < 10 mg/dl (0-10); ALKALINE PHOSPHATASE 86 U/L (38-126); ALT/SGPT 27 U/L (21-72); AST/SGOT 24 U/L (17-59); BILIRUBIN,TOTAL 1.1 mg/dl (0.2-1.3); BLOOD UREA NITROGEN 9 mg/dl (9-20); CALCIUM 9.3 mg/dL (8.4-10.2); CARBON DIOXIDE 25 mmol/L (22-30); CHLORIDE 101 mmol/L (98-107); GFR AFRICAN-AMERICAN > 60; GLUCOSE,RANDOM 83 mg/dL (75-110); MAGNESIUM 1.9 MG/DL (1.6-2.3); PHOSPHOROUS 3.8 mg/dl (2.5-4.5); SODIUM 138 mmol/l (132-148)
--- NOTE | 2017-07-17 17:44 | RAD ---
HISTORY: AMS COMPARISON: Portable chest 10/22/2016 FINDINGS: LUNGS: No active pulmonary disease. PLEURA: No significant pleural effusion identified, no pneumothorax apparent. CARDIOVASCULAR: Normal. OSSEOUS STRUCTURES: No significant abnormalities. VISUALIZED UPPER ABDOMEN: Normal. OTHER FINDINGS: None. IMPRESSION: No acute cardiopulmonary disease identified or significant interval change 10/22/2016.
[2017-07-17] MEDS ORDERED: Naloxone 0.4 mg/ml Inj (Adult) IV PRN (18:15)
[2017-07-17 18:18] LABS: PARTIAL THROMBOPLASTIN TIME 27.9 Seconds (25.6-37.1)
[2017-07-17] MEDS ORDERED: Naloxone 0.4 mg/ml Inj (Adult) ONE (18:44)
--- NOTE | 2017-07-17 20:28 | CP.PCM.CON ---
History of Present Illness - History of Present Illness History of Present Illness: PCP: Sal Hadley MD Reason for Consult: Critical care management Chief Complaint: Seizure/AMS The patient is seen and examined in the ED HPI: The hx is obtained from the medical records as the patient is very Somnolent. 56 years old male with hx of Noncompliance with medication, Cerebral Palsy, Seizure and multiple admissions for Cocaine and Heroin Overdose, his last admission was 04/18/17 at [facility] for Overdose Suicide Attempt. He is brought to the ED after a witnessed seizure at home. In the ED he was unresponsive to verbal stimuli and withdrawal for painful stimuli. He was awaken with IV Narcan, but soon became somnolent again. PMH: Nephrolithiasis; Seizure; Cderebral palsy; GERD; Asthma?; Spinal stenosis; Non-compliacec with medications PSH: Appendectomy; Tonsillectomy SH: Live with Family; Former Smoker; Substance abuse with Heroin, Cocaine, uses walker and cane to ambulate FH: Unknown family hx Allergies: NKDA Medication: Remeron/ Pantoprazole/ Dilantin/ Zoloft/ Trazodone Review of Systems - Review of Systems Systems not reviewed;Unavailable: Altered Mental Status, Intoxicated Review of Systems: review of system is limited as the patient is Post ictal and very somnolent. Past Patient History - Infectious Disease Hx of Infectious Diseases: None - Past Medical History & Family History Past Medical History?: Yes - Past Social History Smoking Status: Former Smoker Chewing Tobacco Use: No Cigar Use: No Drugs: Opiates Home Situation {Lives}: With Family - CARDIAC Hx Cardiac Disorders: No - PULMONARY Hx Asthma: Yes - NEUROLOGICAL Hx Seizures: Yes Other/Comment: Cerebral Palsy - HEENT Hx HEENT Problems: No - RENAL Hx Chronic Kidney Disease: Yes Hx Kidney Stones: Yes - ENDOCRINE/METABOLIC Hx Endocrine Disorders: No - HEMATOLOGICAL/ONCOLOGICAL Hx Human Immunodeficiency Virus (HIV): No - INTEGUMENTARY Hx Dermatological Problems: No - MUSCULOSKELETAL/RHEUMATOLOGICAL Hx Falls: No Hx Spinal Stenosis: Yes - GASTROINTESTINAL Hx Gastrointestinal Disorders: No Hx Gastroesophageal Reflux: Yes - GENITOURINARY/GYNECOLOGICAL Hx Genitourinary Disorders: No - PSYCHIATRIC Hx Emotional Abuse: No Hx Physical Abuse: No Hx Substance Use: No - SURGICAL HISTORY Hx Appendectomy: Yes Hx Tonsillectomy: Yes - ANESTHESIA Hx Anesthesia: Yes Hx Anesthesia Reactions: No Hx Malignant Hyperthermia: No Meds Allergies/Adverse Reactions: Allergies Allergy/AdvReac Type Severity Reaction Status Date / Time No Known Allergies Allergy Verified 04/18/17 15:46 - Medications Medications: Current Medications Dextrose/Sodium Chloride (Dextrose 5%-0.9% Ns 500 Ml) 1,000 mls @ 75 mls/hr IV .[id number] MAUREEN Fosphenytoin Sodium 1,000 mg/ (Sodium Chloride) 120 mls @ 200 mls/hr IV ONCE ONE Stop: 07/17/17 21:05 Naloxone HCl (Narcan) 0.4 mg IV ONCE PRN PRN Reason: RESPIRATORY DEPRESSION Last Admin: 07/17/17 18:46 Dose: 0.4 mg Physical Exam - Constitutional Appears: No Acute Distress, Older Than Stated Age - Head Exam Head Exam: ATRAUMATIC, NORMOCEPHALIC - Eye Exam Eye Exam: EOMI Additional comments: Pupils 2mm reacting sluggish to light - ENT Exam ENT Exam: Mucous Membranes Dry, Normal External Ear Exam Additional comments: Poor dentition - Neck Exam Neck exam: Positive for: Full Rom, Normal Inspection. Negative for: Lymphadenopathy - Respiratory Exam Respiratory Exam: Clear to Auscultation Bilateral. absent: Rales, Rhonchi, Wheezes - Cardiovascular Exam Cardiovascular Exam: REGULAR RHYTHM, RRR, +S1, +S2 - GI/Abdominal Exam GI & Abdominal Exam: Normal Bowel Sounds, Soft. absent: Mass, Organomegaly - Rectal Exam Rectal Exam: Deferred - Neurological Exam Additional comments: Somnolent, no facial droop, both lower extremities with deformity contraction in extension, both upper upper extremities with flexion at the wrist. patient responds to pain by opening the eyes. no response to verbal stimuli. - Skin Skin Exam: Dry, Intact, Normal Color, Warm Results - Vital Signs Recent Vital Signs: Last Vital Signs Temp 97.0 F L 07/17/17 15:02 Pulse 51 L 07/17/17 15:02 Resp 18 07/17/17 19:46 BP 137/79 07/17/17 19:46 Pulse Ox 99 07/17/17 20:20 - Labs Result Diagrams: 07/17/17 16:00 07/17/17 16:00 - EKG Data EKG comments: NSR 98/min No sign of ischemia - Imaging and Cardiology Chest x-ray Status: Image reviewed by me, Report reviewed by me Additional comment: Poor inspiration. No infiltrate CT scan - head Status: Image reviewed by me, Report reviewed by me Additional comment: Normal head CT Assessment & Plan - Assessment and Plan (Free Text) Assessment: #. Seizure #. Opiates intoxication #. GERD #. hx of Cerebral Palsy #. Depressive disorder Plan: 56 years old male with hx of Noncompliance with medication, Cerebral Palsy, Seizure and multiple admissions for Cocaine and Heroin Overdose, brought to the ED after a witnessed seizure at home. In the ED he was unresponsive to verbal stimuli and withdrawal for painful stimuli. #. Seizure in patient who is noncompliant with medication - Bolused with Fosphenytoin - Admit to ICU - Seizure precaution with bed rails up and padded bed rails - Continue Dilantin 100mg IV Q8 hrs while NPO - Ativan 2mg Q6hrs PRN Seizure activity #. Opiates intoxication - Ativan for Agitation #. GERD - Pantopraxole #. Depressive disorder - Consult Psychiatry - Hold Psych meds while NPO #. Hx of Cerebral Palsy #. DVT prophylaxis with Lovenox #. Code Status: Full - Date & Time Date: 07/17/17 Time: 20:28
[2017-07-17] MEDS ORDERED: Dextrose 5%/0.9% NS 1,000 ML IV SCH (21:15)
[2017-07-18] MEDS ORDERED: Phenytoin 100 mg/2 ml Inj IVP SCH (01:00)
[2017-07-18] MEDS ORDERED: Sodium Chloride 0.9% 1,000 ML IV SCH (01:00)
[2017-07-18] MEDS ORDERED: Naloxone 0.4 mg/ml Inj (Adult) IVP STA (03:12)
[2017-07-18] MEDS: Dextrose 5%/0.9% NS 1,000 ML IV SCH ×3 (03:20→16:19)
[2017-07-18] MEDS ORDERED: Flumazenil 0.1 mg/ml Inj (5ml) IVP ONE (04:28)
[2017-07-18 05:26] LABS: BLOOD UREA NITROGEN 8 mg/dl (9-20); CALCIUM 9.3 mg/dL (8.4-10.2); CARBON DIOXIDE 23 mmol/L (22-30); CHLORIDE 109 mmol/L (98-107); GFR AFRICAN-AMERICAN > 60; GLUCOSE,RANDOM 137 mg/dL (75-110); SODIUM 144 mmol/l (132-148)
[2017-07-18 06:32] LABS: HEMATOCRIT 39.8 % (35.0-51.0); MEAN CELL VOLUME 88.8 fl (80.0-94.0); MEAN CORPUSCULAR HEMOGLOBIN 29.1 pg (27.0-31.0); MEAN CORPUSCULAR HGB CONC 32.7 g/dL (33.0-37.0); RED CELL DISTRIBUTION WIDTH 13.8 % (11.5-14.5); WHITE BLOOD COUNT 5.9 K/uL (4.8-10.8)
[2017-07-18] MEDS: Enoxaparin 40 mg Syringe SC SCH (09:14)
[2017-07-18] MEDS: Phenytoin 100 mg/2 ml Inj IVP SCH ×2 (09:24→16:17)
--- NOTE | 2017-07-18 11:52 | CP.PCM.CON ---
History of Present Illness - History of Present Illness History of Present Illness: Psychiatry consult Patient limited historian due to somnolence, is arousable, but gives one word answers. History obtained from the chart. CC: Back pain. HPI: 56 years old male with hx of noncompliance with medication, Cerebral Palsy , Seizure and multiple admissions for Cocaine and Heroin Overdose, his last admission was 04/18/17 at [facility] for Overdose Suicide Attempt. He is brought to the ED after a witnessed seizure at home. In the ED he was unresponsive to verbal stimuli and withdrawal for painful stimuli. Patient denied current hallucinations, suicidal ideation or recent attempt. PMH: Nephrolithiasis; Seizure; Cerebral palsy; GERD; Asthma?; Spinal stenosis; Non-compliacec with medications PSH: Appendectomy; Tonsillectomy SH: Live with Family; Former Smoker; Substance abuse with Heroin, Cocaine, uses walker and cane to ambulate FH: Unknown family hx Allergies: NKDA Impression: 56 yo male w/ history of noncompliance with medication, Cerebral Palsy, Seizure and multiple admissions for Cocaine and Heroin Overdose, brought to the ED for seizure. Patient denies suicide attempt or current suicidal ideation. At this time, patient's presentation is due to acute medical/ neurological issues. -If patient expresses suicidal ideation when he is more alert, please contact for re-evaluation -Would not restart psychotropic medications at this time until medical issues resolve. Antidepressants will not be effective if patient does not have any intention to comply with treatment. -Would recommend psychoeducation re: substance abuse and non-compliance w/ treatment when the patient is more alert -Would recommend primary team obtain additional collateral history Past Patient History - Infectious Disease Hx of Infectious Diseases: None - Past Medical History & Family History Past Medical History?: Yes - Past Social History Smoking Status: Former Smoker Chewing Tobacco Use: No Cigar Use: No Drugs: Opiates Home Situation {Lives}: With Family - CARDIAC Hx Cardiac Disorders: No - PULMONARY Hx Asthma: Yes - NEUROLOGICAL Hx Seizures: Yes - HEENT Hx HEENT Problems: No - RENAL Hx Chronic Kidney Disease: Yes Hx Kidney Stones: Yes - ENDOCRINE/METABOLIC Hx Endocrine Disorders: No - HEMATOLOGICAL/ONCOLOGICAL Hx Human Immunodeficiency Virus (HIV): No - INTEGUMENTARY Hx Dermatological Problems: No - MUSCULOSKELETAL/RHEUMATOLOGICAL Hx Falls: No Hx Spinal Stenosis: Yes - GASTROINTESTINAL Hx Gastrointestinal Disorders: No Hx Gastroesophageal Reflux: Yes - GENITOURINARY/GYNECOLOGICAL Hx Genitourinary Disorders: No - PSYCHIATRIC Hx Emotional Abuse: No Hx Physical Abuse: No Hx Substance Use: No - SURGICAL HISTORY Hx Appendectomy: Yes Hx Tonsillectomy: Yes - ANESTHESIA Hx Anesthesia: Yes Hx Anesthesia Reactions: No Hx Malignant Hyperthermia: No Meds Allergies/Adverse Reactions: Allergies Allergy/AdvReac Type Severity Reaction Status Date / Time No Known Allergies Allergy Verified 04/18/17 15:46 - Medications Medications: Current Medications Enoxaparin Sodium (Lovenox) 40 mg SC DAILY MAUREEN PRN Reason: Protocol Last Admin: 07/18/17 09:14 Dose: 40 mg Sodium Chloride (Sodium Chloride 0.9%) 1,000 mls @ 1,000 mls/hr IV .Q1H REPLACED BY [facility] Stop: 07/19/17 00:47 Last Admin: 07/18/17 00:58 Dose: 1,000 mls/hr Dextrose/Sodium Chloride (Dextrose 5%/0.9% Ns 1000 Ml) 1,000 mls @ 150 mls/hr IV .Q6H40M REPLACED BY [facility] Stop: 07/18/17 21:02 Last Admin: 07/18/17 09:26 Dose: 150 mls/hr Lorazepam (Ativan) 2 mg IM Q6 PRN PRN Reason: Seizure activity Lorazepam (Ativan) 1 mg IVP Q6 PRN PRN Reason: Agitation Naloxone HCl (Narcan) 0.4 mg IV ONCE PRN PRN Reason: RESPIRATORY DEPRESSION Last Admin: 07/17/17 18:46 Dose: 0.4 mg Pantoprazole Sodium (Protonix Inj) 40 mg IVP DAILY REPLACED BY [facility] Last Admin: 07/18/17 09:10 Dose: 40 mg Phenytoin (Dilantin) 100 mg IVP Q8 REPLACED BY [facility] Last Admin: 07/18/17 09:24 Dose: 100 mg Results - Vital Signs Recent Vital Signs: Last Vital Signs Temp 98.0 F 07/18/17 08:00 Pulse 82 07/18/17 10:00 Resp 17 07/18/17 10:00 BP 114/77 07/18/17 10:00 Pulse Ox 97 07/18/17 10:00 - Labs Result Diagrams: 07/18/17 05:25 07/18/17 04:20 Labs: Laboratory Results - last 24 hr 07/17/17 07/18/17 07/18/17 21:53 04:20 05:25 WBC 5.9 RBC 4.48 Hgb 13.0 Hct 39.8 MCV 88.8 MCH 29.1 MCHC 32.7 L RDW 13.8 Plt Count 191 Sodium 144 Potassium 4.0 Chloride 109 H Carbon Dioxide 23 Anion Gap 16 BUN 8 L Creatinine 0.6 L Est GFR ( Amer) > 60 Est GFR (Non-Af Amer) > 60 POC Glucose (mg/dL) 104 Random Glucose 137 H Calcium 9.3 Magnesium 2.0
[2017-07-18] MEDS ORDERED: Midazolam 2 MG/2 ML VIAL IV STA (19:57)
--- NOTE | 2017-07-18 20:10 | CP.PCM.HP ---
History of Present Illness - History of Present Illness History of Present Illness: 56 yo with hx of cerebral palsy seizure disorder Drug abuse Asthma admitted for seizure and drug overdose Present on Admission - Present on Admission Any Indicators Present on Admission: No Past Patient History - Infectious Disease Hx of Infectious Diseases: None - Past Medical History & Family History Past Medical History?: Yes - Past Social History Smoking Status: Former Smoker Chewing Tobacco Use: No Cigar Use: No Drugs: Opiates Home Situation {Lives}: With Family - CARDIAC Hx Cardiac Disorders: No - PULMONARY Hx Asthma: Yes - NEUROLOGICAL Hx Seizures: Yes - HEENT Hx HEENT Problems: No - RENAL Hx Chronic Kidney Disease: Yes Hx Kidney Stones: Yes - ENDOCRINE/METABOLIC Hx Endocrine Disorders: No - HEMATOLOGICAL/ONCOLOGICAL Hx Human Immunodeficiency Virus (HIV): No - INTEGUMENTARY Hx Dermatological Problems: No - MUSCULOSKELETAL/RHEUMATOLOGICAL Hx Falls: No Hx Spinal Stenosis: Yes - GASTROINTESTINAL Hx Gastrointestinal Disorders: No Hx Gastroesophageal Reflux: Yes - GENITOURINARY/GYNECOLOGICAL Hx Genitourinary Disorders: No - PSYCHIATRIC Hx Emotional Abuse: No Hx Physical Abuse: No Hx Substance Use: No - SURGICAL HISTORY Hx Appendectomy: Yes Hx Tonsillectomy: Yes - ANESTHESIA Hx Anesthesia: Yes Hx Anesthesia Reactions: No Hx Malignant Hyperthermia: No Meds Allergies/Adverse Reactions: Allergies Allergy/AdvReac Type Severity Reaction Status Date / Time No Known Allergies Allergy Verified 04/18/17 15:46 Physical Exam - Respiratory Exam Respiratory Exam: NORMAL BREATHING PATTERN - Cardiovascular Exam Cardiovascular Exam: REGULAR RHYTHM - GI/Abdominal Exam GI & Abdominal Exam: Normal Bowel Sounds Results - Vital Signs Recent Vital Signs: Last Vital Signs Temp 98.5 F 07/18/17 16:00 Pulse 100 H 07/18/17 18:00 Resp 21 07/18/17 18:00 BP 136/92 H 07/18/17 18:00 Pulse Ox 95 07/18/17 18:00 - Labs Result Diagrams: 07/18/17 05:25 07/18/17 04:20 Labs: Laboratory Results - last 24 hr 07/17/17 07/18/17 07/18/17 21:53 04:20 05:25 WBC 5.9 RBC 4.48 Hgb 13.0 Hct 39.8 MCV 88.8 MCH 29.1 MCHC 32.7 L RDW 13.8 Plt Count 191 Sodium 144 Potassium 4.0 Chloride 109 H Carbon Dioxide 23 Anion Gap 16 BUN 8 L Creatinine 0.6 L Est GFR ( Amer) > 60 Est GFR (Non-Af Amer) > 60 POC Glucose (mg/dL) 104 Random Glucose 137 H Calcium 9.3 Magnesium 2.0 Assessment & Plan - Assessment and Plan (Free Text) Assessment: Drug overdose Opiates BZD Methadone ICU Psych cerebral palsy seizure disorder Neuro Dilantin Asthma - Date & Time Date: 07/18/17 Time: 22:22
--- NOTE | 2017-07-18 23:43 | CARD ---
APPROVED REPORT EKG Measurement Heart [id number] <Conclusion> Normal sinus rhythm Minimal voltage criteria for LVH, may be normal variant Borderline ECG
[2017-07-19] MEDS: Phenytoin 100 mg/2 ml Inj IVP SCH ×2 (00:45→08:22)
[2017-07-19 05:19] LABS: HEMATOCRIT 40.4 % (35.0-51.0); MEAN CELL VOLUME 88.3 fl (80.0-94.0); MEAN CORPUSCULAR HGB CONC 32.8 g/dL (33.0-37.0); RED CELL DISTRIBUTION WIDTH 13.6 % (11.5-14.5); WHITE BLOOD COUNT 5.4 K/uL (4.8-10.8)
[2017-07-19 05:25] LABS: ALB/GLOB RATIO 1.3 (1.0-2.1); ALKALINE PHOSPHATASE 85 U/L (38-126); ALT/SGPT 24 U/L (21-72); AST/SGOT 17 U/L (17-59); BILIRUBIN,TOTAL 1.1 mg/dl (0.2-1.3); BLOOD UREA NITROGEN 3 mg/dl (9-20); CALCIUM 9.3 mg/dL (8.4-10.2); CARBON DIOXIDE 25 mmol/L (22-30); CHLORIDE 109 mmol/L (98-107); GFR AFRICAN-AMERICAN > 60; GLUCOSE,RANDOM 109 mg/dL (75-110); POTASSIUM 3.8 MMOL/L (3.6-5.0); SODIUM 142 mmol/l (132-148); TOTAL PROTEIN 6.7 G/DL (6.3-8.2)
[2017-07-19] MEDS: Enoxaparin 40 mg Syringe SC SCH (08:22)
--- NOTE | 2017-07-19 14:12 | CP.CCUPN ---
CCU Subjective - Physician Review Subjective (Free Text): Arousable from sleep, remains awake and oriented, no distress. No seizure activity reported over the past 24H. ROS: No other pertinent negs or positives on 10+ system review. PMSFH: All Nursing and physician documentation reviewed to date; no new pertinent info noted relevant to current medical problems. MAJOR PROBLEMS: 1. Seizure Disorder 2. h/o Substance Abuse 3. h/o Cerebral Palsy 4. h/o Depression PLAN: 1. Stable neurologically, on Dilantin, converted to PO administration. 2. Watch for substance abuse withdrawal. 3. No further need for ICU monitoring. CCU Objective - Vital Signs / Intake & Output Vital Signs (Last 4 hours): Vital Signs Temp Pulse Resp BP Pulse Ox 07/19/17 12:00 98 F 90 35 H 143/57 L 97 07/19/17 11:00 90 28 H 159/106 H 100 Intake and Output (Last 8hrs): Intake & Output 07/18/17 07/19/17 07/19/17 22:59 06:59 14:59 Intake Total 1974 1200 750 Output Total 400 1850 1000 Balance 1575 -650 -250 Intake: IV 1974 1200 150 Oral 600 Output: Urine 400 1850 1000 Condom 400 1850 1000 Other: # Bowel Movements 1 - Physical Exam Head: Positive for: Normocephalic Pupils: Positive for: PERRL Extroacular Muscles: Positive for: EOMI. Negative for: Gaze Palsy Conjunctiva: Positive for: Normal. Negative for: Injected, Icteric Mouth: Positive for: Moist Mucous Membranes Neck: Positive for: Normal Range of Motion. Negative for: Meningeal Signs, JVD Respiratory/Chest: Positive for: Clear to Auscultation. Negative for: Accessory Muscle Use, Wheezes Cardiovascular: Positive for: Regular Rate and Rhythm Abdomen: Positive for: Normal Bowel Sounds. Negative for: Tenderness, Distention Lower Extremity: Positive for: Other (upeer and lower extremites contracted). Negative for: CALF TENDERNESS, Cyanosis Skin: Positive for: Warm. Negative for: Rashes Psychiatric: Positive for: Normal Affect, Normal Mood - Medications Active Medications: Active Medications Generic Name Dose Route Start Last Admin Trade Name Freq PRN Reason Stop Dose Admin Enoxaparin Sodium 40 mg 07/18/17 09:00 07/19/17 08:22 Lovenox SC 40 mg DAILY [facility] Administration Protocol Famotidine 40 mg 07/19/17 22:00 Pepcid PO HS [facility] Lorazepam 2 mg 07/17/17 20:58 Ativan IM Q6 PRN Seizure activity Lorazepam 1 mg 07/17/17 20:59 Ativan IVP Q6 PRN Agitation Naloxone HCl 0.4 mg 07/17/17 18:15 07/17/17 18:46 Narcan IV 0.4 mg ONCE PRN Administration RESPIRATORY DEPRESSION Phenytoin Sodium 100 mg 07/19/17 17:00 Dilantin PO Q8 [facility] - Patient Studies Lab Studies: Lab Studies 07/19/17 07/19/17 Range/Units 04:20 04:20 WBC 5.4 (4.8-10.8) K/uL RBC 4.58 (4.40-5.90) Mil/uL Hgb 13.3 (12.0-18.0) g/dL Hct 40.4 (35.0-51.0) % MCV 88.3 (80.0-94.0) fl MCH 29.0 (27.0-31.0) pg MCHC 32.8 L (33.0-37.0) g/dL RDW 13.6 (11.5-14.5) % Plt Count 199 (130-400) K/uL Sodium 142 (132-148) mmol/l Potassium 3.8 (3.6-5.0) MMOL/L Chloride 109 H (98-107) mmol/L Carbon Dioxide 25 (22-30) mmol/L Anion Gap 12 (10-20) BUN 3 L (9-20) mg/dl Creatinine 0.6 L (0.8-1.5) mg/dL Est GFR ( Amer) > 60 Est GFR (Non-Af Amer) > 60 Random Glucose 109 (75-110) mg/dL Calcium 9.3 (8.4-10.2) mg/dL Total Bilirubin 1.1 (0.2-1.3) mg/dl AST 17 D (17-59) U/L ALT 24 (21-72) U/L Alkaline Phosphatase 85 (38-126) U/L Total Protein 6.7 (6.3-8.2) G/DL Albumin 3.9 (3.5-5.0) g/dL Globulin 2.9 (2.2-3.9) gm/dL Albumin/Globulin Ratio 1.3 (1.0-2.1) Laboratory Results - last 24 hr 07/19/17 07/19/17 04:20 04:20 WBC 5.4 RBC 4.58 Hgb 13.3 Hct 40.4 MCV 88.3 MCH 29.0 MCHC 32.8 L RDW 13.6 Plt Count 199 Sodium 142 Potassium 3.8 Chloride 109 H Carbon Dioxide 25 Anion Gap 12 BUN 3 L Creatinine 0.6 L Est GFR ( Amer) > 60 Est GFR (Non-Af Amer) > 60 Random Glucose 109 Calcium 9.3 Total Bilirubin 1.1 AST 17 D ALT 24 Alkaline Phosphatase 85 Total Protein 6.7 Albumin 3.9 Globulin 2.9 Albumin/Globulin Ratio 1.3 Fingerstick Blood Sugar Results: 92 Review of Systems - Review of Systems All systems: reviewed and no additional remarkable complaints except (as above) Critical Care Progress Note - Nutrition Nutrition: Nutrition Category Date Time Status Regular Diet [DIET] Diets 07/19/17 Breakfast Active
--- NOTE | 2017-07-19 17:16 | CP.PCM.PN ---
Subjective - Date & Time of Evaluation Date of Evaluation: 07/19/17 Time of Evaluation: 22:22 - Subjective Subjective: More alert Objective - Vital Signs/Intake and Output Vital Signs (last 24 hours): Temp Pulse Resp BP Pulse Ox 98.3 F 100 H 27 H 133/99 H 94 L 07/19/17 16:00 07/19/17 17:00 07/19/17 17:00 07/19/17 17:00 07/19/17 17:00 Intake and Output: 07/19/17 07/19/17 06:59 18:59 Intake Total 1800 1110 Output Total 1850 1000 Balance -50 110 - Medications Medications: Current Medications Enoxaparin Sodium (Lovenox) 40 mg SC DAILY [facility] PRN Reason: Protocol Last Admin: 07/19/17 08:22 Dose: 40 mg Famotidine (Pepcid) 40 mg PO HS [facility] Lorazepam (Ativan) 2 mg IM Q6 PRN PRN Reason: Seizure activity Lorazepam (Ativan) 1 mg IVP Q6 PRN PRN Reason: Agitation Naloxone HCl (Narcan) 0.4 mg IV ONCE PRN PRN Reason: RESPIRATORY DEPRESSION Last Admin: 07/17/17 18:46 Dose: 0.4 mg Phenytoin Sodium (Dilantin) 100 mg PO Q8 [facility] Last Admin: 07/19/17 16:30 Dose: 100 mg - Labs Labs: 07/19/17 04:20 07/19/17 04:20 PT 12.4 Seconds (9.8-13.1) 07/17/17 16:00 INR 1.2 (0.9-1.2) 07/17/17 16:00 APTT 27.9 Seconds (25.6-37.1) 07/17/17 16:00 - Respiratory Exam Respiratory Exam: NORMAL BREATHING PATTERN - Cardiovascular Exam Cardiovascular Exam: REGULAR RHYTHM - GI/Abdominal Exam GI & Abdominal Exam: Normal Bowel Sounds Assessment and Plan - Assessment and Plan (Free Text) Assessment: Drug overdose/ dependence Opiates BZD Methadone ICU Psych cerebral palsy seizure disorder Neuro Dilantin
--- NOTE | 2017-07-20 07:56 | CON ---
DATE: 07/19/2017 REASON FOR CONSULTATION: Seizure. HISTORY OF PRESENT ILLNESS: The patient is a 56-year-old male with history of seizure disorder and cerebral palsy was brought in after he was very sleepy. The patient apparently had cocaine and heroin overdose. His last admission in [facility] with suicide attempt. The patient says he also has stopped taking his Dilantin. He states that he also had a seizure when he was home. REVIEW OF SYSTEMS: Denies any headache, chest pain, shortness of breath, abdominal pain, constipation, and diarrhea. PAST MEDICAL HISTORY: Includes seizure disorder, cerebral palsy, nephrolithiasis. PAST SURGICAL HISTORY: Includes appendectomy and tonsillectomy. MEDICATIONS: Medications which he suppose to take include Dilantin 100 mg t.i.d., pantoprazole, Remeron, Zoloft, and Desyrel. ALLERGIES: NO KNOWN DRUG ALLERGIES. SOCIAL HISTORY: He does smoke cigarettes. Does use drugs including heroin and cocaine. Denies any alcohol use. FAMILY HISTORY: Noncontributory to the case. PHYSICAL EXAMINATION GENERAL: The patient is an elderly male, lying on the bed in no acute distress. VITAL SIGNS: Blood pressure is 143/57, heart rate is 90 per minute, breathing at the rate of 16, temperature 98 degrees Fahrenheit. HEENT: Head is normocephalic and atraumatic. NECK: Supple. There are no carotid bruits. LUNGS: Clear. CARDIOVASCULAR: S1 and S2 audible. No murmurs. ABDOMEN: Soft and nontender. Bowel sounds present. NEUROLOGIC: Mental status; the patient is awake, alert. He has dysarthric speech. He is oriented to place, year, person. He follows all simple commands. Cranial nerve examination; pupils are 3 mm bilaterally, reactive to light. Visual lopez are full. Extraocular movements are intact. There is no obvious facial asymmetry. He is moving all 4 extremities with involuntary jerking movement as well as some choreic movement when he tries to move them, this is chronic in nature. Reflexes 1+ and symmetrical. Plantars; no response. Gait is deferred at the moment. LABORATORY DATA: Reviewed, shows WBC of 5.4, hemoglobin 13.3, hematocrit 40.4, and platelets of 199. His sodium is 142, potassium 3.8, chloride 109, carbon dioxide contained 25, BUN of 3, creatinine 0.6, and glucose of 109. His urine toxicology is positive for opiates, methadone, and benzodiazepines. His serum Dilantin level was less than 3. IMPRESSION: Seizure disorder with noncompliance with medications with possible breakthrough seizure causing patient to be somnolent. RECOMMENDATIONS: 1. The patient was loaded with fosphenytoin. 2. The patient to be continued on Dilantin 100 mg every 8 hours. 3. The patient have an electroencephalogram. 4. The patient to have serum Dilantin level done after 5 days. 5. Please continue the treatment and supportive care. Thank you for the opportunity to participate in the care of this patient. Melissa Regalado MD
[2017-07-20] MEDS: Enoxaparin 40 mg Syringe SC SCH (08:32)
[2017-07-20] MEDS ORDERED: Alum-Mag Hydrox-Simethicone Susp (30 mL) PO PRN (11:35)
--- NOTE | 2017-07-20 11:43 | CP.PCM.CON ---
History of Present Illness - History of Present Illness History of Present Illness: Psychiatry consult follow-up CC: Back pain. HPI: 56 years old male with hx of noncompliance with medication, Cerebral Palsy , Seizure and multiple admissions for Cocaine and Heroin Overdose. He is brought to the ED after a witnessed seizure at home. Patient reports that he continues to abuse Heroin, last used 9 bags on monday. He reports that he is currently having opioid w/drawal symptoms and is requesting treatment. He is not compliant with methadone maintenance. He denies ideation to harm himself and denies suicide attempt prior to admission. He continues to abuse xanax and heroin. Patient counseled on the dangers of substance abuse. He does not want psychiatric admission at this time. Patient denies taking antidepressants prior to admission and is not interested in tx with psychotropic medications at this time. NO AH/VH/SI/HI/paranoia/delusions. PMH: Nephrolithiasis; Seizure; Cerebral palsy; GERD; Asthma?; Spinal stenosis; Non-compliacec with medications PSH: Appendectomy; Tonsillectomy SH: Live with Family; Former Smoker; Substance abuse with Heroin, Cocaine, uses walker and cane to ambulate FH: Unknown family hx Allergies: NKDA Impression: 56 yo male w/ history of noncompliance with medications, Cerebral Palsy, Seizure and multiple admissions for Cocaine and Heroin Overdose, brought to the ED for seizure. Patent's primary diagnosis is polysubstance dependence. Patient denies suicide attempt or current suicidal ideation. Patient does not need acute inpatient psychiatric admission at this time. -Treat opioid w/drawal symptoms: Clonidine 0.1 mg Q8 hr x 3 days, Imodium PRN, Mylanta PRN, Flexeril PRN, Motrin PRN, Ativan PRN for angitation -No acute inpatient psychiatric admission indicated at this time -Psychoeducation re: substance abuse and non-compliance w/ treatment Past Patient History - Infectious Disease Hx of Infectious Diseases: None - Past Medical History & Family History Past Medical History?: Yes - Past Social History Smoking Status: Former Smoker Chewing Tobacco Use: No Cigar Use: No Drugs: Opiates Home Situation {Lives}: With Family - CARDIAC Hx Cardiac Disorders: No - PULMONARY Hx Asthma: Yes - NEUROLOGICAL Hx Seizures: Yes - HEENT Hx HEENT Problems: No - RENAL Hx Chronic Kidney Disease: Yes Hx Kidney Stones: Yes - ENDOCRINE/METABOLIC Hx Endocrine Disorders: No - HEMATOLOGICAL/ONCOLOGICAL Hx Human Immunodeficiency Virus (HIV): No - INTEGUMENTARY Hx Dermatological Problems: No - MUSCULOSKELETAL/RHEUMATOLOGICAL Hx Falls: No Hx Spinal Stenosis: Yes - GASTROINTESTINAL Hx Gastrointestinal Disorders: No Hx Gastroesophageal Reflux: Yes - GENITOURINARY/GYNECOLOGICAL Hx Genitourinary Disorders: No - PSYCHIATRIC Hx Emotional Abuse: No Hx Physical Abuse: No Hx Substance Use: No - SURGICAL HISTORY Hx Appendectomy: Yes Hx Tonsillectomy: Yes - ANESTHESIA Hx Anesthesia: Yes Hx Anesthesia Reactions: No Hx Malignant Hyperthermia: No Meds Allergies/Adverse Reactions: Allergies Allergy/AdvReac Type Severity Reaction Status Date / Time No Known Allergies Allergy Verified 04/18/17 15:46 - Medications Medications: Current Medications Al Hydrox/Mg Hydrox/Simethicone (Maalox Plus 30 Ml) 30 ml PO Q4 PRN PRN Reason: Indigestion / Heartburn Clonidine HCl (Catapres) 0.1 mg PO Q8 [facility] Stop: 07/22/17 17:00 Cyclobenzaprine HCl (Flexeril) 10 mg PO TID PRN PRN Reason: Muscle spasm Enoxaparin Sodium (Lovenox) 40 mg SC DAILY [facility] PRN Reason: Protocol Last Admin: 07/20/17 08:32 Dose: 40 mg Famotidine (Pepcid) 40 mg PO HS [facility] Last Admin: 07/19/17 22:03 Dose: 40 mg Ibuprofen (Motrin Tab) 600 mg PO Q8 PRN PRN Reason: Pain, moderate (4-7) Loperamide HCl (Imodium) 2 mg PO QID PRN PRN Reason: Diarrhea Lorazepam (Ativan) 2 mg IM Q6 PRN PRN Reason: Seizure activity Lorazepam (Ativan) 1 mg IVP Q6 PRN PRN Reason: Agitation Naloxone HCl (Narcan) 0.4 mg IV ONCE PRN PRN Reason: RESPIRATORY DEPRESSION Last Admin: 07/17/17 18:46 Dose: 0.4 mg Phenytoin Sodium (Dilantin) 100 mg PO Q8 [facility] Last Admin: 07/20/17 01:00 Dose: 100 mg Results - Vital Signs Recent Vital Signs: Last Vital Signs Temp 98.5 F 07/20/17 08:00 Pulse 91 H 07/20/17 10:00 Resp 26 H 07/20/17 10:00 BP 156/100 H 07/20/17 10:00 Pulse Ox 99 07/20/17 10:00 - Labs Result Diagrams: 07/19/17 04:20 07/19/17 04:20
--- NOTE | 2017-07-20 14:03 | EEG ---
INTRODUCTION: This is a digitally recorded EEG monitoring using standard EEG montages. Background rhythm of the EEG shows a background activity of 9 Hz to 10 Hz alpha activity in parietooccipital region. The EEG activity is bilaterally symmetrical and synchronized. There is attenuation of the background activity on eye opening. Abnormal potentials, no spike, sharp waves, or focal plane was seen. Photic stimulation and hyperventilation: Photic stimulation did not reveal any abnormality and hyperventilation was not performed. IMPRESSION: Normal EEG. No epileptiform activity seen in this EEG recording. Melissa Regalado MD
--- NOTE | 2017-07-20 15:04 | PN ---
NEUROLOGY PROGRESS NOTE SUBJECTIVE: The patient is lying on the bed in no acute distress. PHYSICAL EXAMINATION: VITAL SIGNS: Blood pressure is 162/105 and heart rate is 98 per minute, breathing at the rate of 16 per minute, temperature is 98.5 degrees Fahrenheit. HEENT: Head is normocephalic and atraumatic. NECK: Supple. There are no carotid bruits. LUNGS: Clear. CARDIOVASCULAR: S1 and S2 audible. No murmurs. ABDOMEN: Soft and nontender. Bowel sounds are present. NEUROLOGICAL: Mental status: The patient is awake, alert, oriented to place, year, person Speech flow: Speech is dysarthric, which is old. Cranial nerve examination: Pupils 3 mm bilaterally reactive to light. Visual lopez are full. Extraocular movements are intact. There is no facial asymmetry. He is moving all four extremities with involuntary jerking movements as well as choreic movements when he tries to move them. This is chronic in nature. Gait is deferred at the moment. LABORATORY DATA: Labs reviewed. The patient had an electroencephalogram which is normal. IMPRESSION: Seizure disorder with noncompliance with medication with possible status post breakthrough seizure. RECOMMENDATIONS: 1. The patient to be continued on Dilantin 100 mg every 8 hours. 2. The patient had no further seizures. 3. The patient had an electroencephalogram which is normal. 4. Please continue other treatment and supportive care. Thank you for the opportunity to participate in the care of this patient. Melissa Regalado MD
--- NOTE | 2017-07-20 20:48 | CP.PCM.PN ---
Subjective - Date & Time of Evaluation Date of Evaluation: 07/20/17 Time of Evaluation: 22:22 - Subjective Subjective: Psych note appreciated Objective - Vital Signs/Intake and Output Vital Signs (last 24 hours): Temp Pulse Resp BP Pulse Ox 98.3 F 102 H 24 141/106 H 96 07/20/17 16:00 07/20/17 18:00 07/20/17 18:00 07/20/17 18:00 07/20/17 17:00 Intake and Output: 07/20/17 07/21/17 18:59 06:59 Intake Total 890 Balance 890 - Medications Medications: Current Medications Al Hydrox/Mg Hydrox/Simethicone (Maalox Plus 30 Ml) 30 ml PO Q4 PRN PRN Reason: Indigestion / Heartburn Clonidine HCl (Catapres) 0.1 mg PO Q8 [facility] Stop: 07/22/17 17:00 Last Admin: 07/20/17 16:37 Dose: 0.1 mg Cyclobenzaprine HCl (Flexeril) 10 mg PO TID PRN PRN Reason: Muscle spasm Last Admin: 07/20/17 12:44 Dose: 10 mg Enoxaparin Sodium (Lovenox) 40 mg SC DAILY [facility] PRN Reason: Protocol Last Admin: 07/20/17 08:32 Dose: 40 mg Famotidine (Pepcid) 40 mg PO HS [facility] Last Admin: 07/19/17 22:03 Dose: 40 mg Ibuprofen (Motrin Tab) 600 mg PO Q8 PRN PRN Reason: Pain, moderate (4-7) Loperamide HCl (Imodium) 2 mg PO QID PRN PRN Reason: Diarrhea Last Admin: 07/20/17 12:45 Dose: 2 mg Lorazepam (Ativan) 2 mg IM Q6 PRN PRN Reason: Seizure activity Lorazepam (Ativan) 1 mg IVP Q6 PRN PRN Reason: Agitation Naloxone HCl (Narcan) 0.4 mg IV ONCE PRN PRN Reason: RESPIRATORY DEPRESSION Last Admin: 07/17/17 18:46 Dose: 0.4 mg Phenytoin Sodium (Dilantin) 100 mg PO Q8 [facility] Last Admin: 07/20/17 16:37 Dose: 100 mg - Labs Labs: 07/19/17 04:20 07/19/17 04:20 PT 12.4 Seconds (9.8-13.1) 07/17/17 16:00 INR 1.2 (0.9-1.2) 07/17/17 16:00 APTT 27.9 Seconds (25.6-37.1) 07/17/17 16:00 - Respiratory Exam Respiratory Exam: NORMAL BREATHING PATTERN - Cardiovascular Exam Cardiovascular Exam: REGULAR RHYTHM - GI/Abdominal Exam GI & Abdominal Exam: Normal Bowel Sounds Assessment and Plan - Assessment and Plan (Free Text) Assessment: Drug overdose/ dependence/ withdrawal Opiates BZD Methadone ICU Psych Clonidine cerebral palsy seizure disorder Neuro Dilantin
[2017-07-20] MEDS: Dextrose 5%/0.45% NS 1,000 ML IV SCH (21:39)
[2017-07-21 05:53] LABS: HEMATOCRIT 43.7 % (35.0-51.0); MEAN CELL VOLUME 87.4 fl (80.0-94.0); MEAN CORPUSCULAR HGB CONC 33.2 g/dL (33.0-37.0); RED CELL DISTRIBUTION WIDTH 13.5 % (11.5-14.5); WHITE BLOOD COUNT 5.8 K/uL (4.8-10.8)
[2017-07-21 06:13] LABS: ALB/GLOB RATIO 1.3 (1.0-2.1); ALKALINE PHOSPHATASE 94 U/L (38-126); ALT/SGPT 27 U/L (21-72); AST/SGOT 17 U/L (17-59); BILIRUBIN,TOTAL 0.6 mg/dl (0.2-1.3); BLOOD UREA NITROGEN 9 mg/dl (9-20); CALCIUM 9.1 mg/dL (8.4-10.2); CARBON DIOXIDE 28 mmol/L (22-30); CHLORIDE 102 mmol/L (98-107); GFR AFRICAN-AMERICAN > 60; GLUCOSE,RANDOM 106 mg/dL (75-110); POTASSIUM 3.2 MMOL/L (3.6-5.0); SODIUM 140 mmol/l (132-148); TOTAL PROTEIN 7.1 G/DL (6.3-8.2)
[2017-07-21] MEDS: Enoxaparin 40 mg Syringe SC SCH (09:05)
--- NOTE | 2017-07-21 10:55 | CP.PCM.PN ---
Subjective - Date & Time of Evaluation Date of Evaluation: 07/21/17 Time of Evaluation: 22:22 - Subjective Subjective: Labs noted Objective - Vital Signs/Intake and Output Vital Signs (last 24 hours): Temp Pulse Resp BP Pulse Ox 98.4 F 108 H 19 144/107 H 100 07/21/17 08:08 07/21/17 09:08 07/21/17 06:20 07/21/17 09:08 07/21/17 06:20 Intake and Output: 07/21/17 07/21/17 06:59 18:59 Intake Total 1420 Output Total 401 Balance 1019 - Medications Medications: Current Medications Al Hydrox/Mg Hydrox/Simethicone (Maalox Plus 30 Ml) 30 ml PO Q4 PRN PRN Reason: Indigestion / Heartburn Clonidine HCl (Catapres) 0.1 mg PO Q8 [facility] Stop: 07/22/17 17:00 Last Admin: 07/21/17 09:08 Dose: 0.1 mg Cyclobenzaprine HCl (Flexeril) 10 mg PO TID PRN PRN Reason: Muscle spasm Last Admin: 07/20/17 12:44 Dose: 10 mg Famotidine (Pepcid) 40 mg PO HS [facility] Last Admin: 07/20/17 21:42 Dose: 40 mg Dextrose/Sodium Chloride (Dextrose 5%/0.45% Ns 1000 Ml) 1,000 mls @ 80 mls/hr IV .[id number] [facility] Stop: 07/21/17 21:06 Last Admin: 07/20/17 21:39 Dose: 80 mls/hr Ibuprofen (Motrin Tab) 600 mg PO Q8 PRN PRN Reason: Pain, moderate (4-7) Loperamide HCl (Imodium) 2 mg PO QID PRN PRN Reason: Diarrhea Last Admin: 07/20/17 12:45 Dose: 2 mg Lorazepam (Ativan) 2 mg IM Q6 PRN PRN Reason: Seizure activity Lorazepam (Ativan) 1 mg IVP Q6 PRN PRN Reason: Agitation Naloxone HCl (Narcan) 0.4 mg IV ONCE PRN PRN Reason: RESPIRATORY DEPRESSION Last Admin: 07/17/17 18:46 Dose: 0.4 mg Phenytoin Sodium (Dilantin) 100 mg PO Q8 [facility] Last Admin: 07/21/17 09:06 Dose: 100 mg - Labs Labs: 07/21/17 04:20 07/21/17 04:20 PT 12.4 Seconds (9.8-13.1) 07/17/17 16:00 INR 1.2 (0.9-1.2) 07/17/17 16:00 APTT 27.9 Seconds (25.6-37.1) 07/17/17 16:00 - Respiratory Exam Respiratory Exam: NORMAL BREATHING PATTERN - Cardiovascular Exam Cardiovascular Exam: REGULAR RHYTHM - GI/Abdominal Exam GI & Abdominal Exam: Normal Bowel Sounds Assessment and Plan - Assessment and Plan (Free Text) Assessment: Drug overdose/ dependence/ withdrawal Opiates BZD Methadone ICU Clonidine as per Psych Cerebral Palsy Seizure disorder Neuro Dilantin
[2017-07-21] MEDS ORDERED: Potassium Chloride 10 mEq ER Tab PO ONE (12:24)
[2017-07-21] MEDS: Dextrose 5%/0.45% NS 1,000 ML IV SCH (12:28)
[2017-07-22] MEDS: Dextrose 5%/0.45% NS 1,000 ML IV SCH (01:13)
[2017-07-22 06:19] LABS: HEMATOCRIT 44.1 % (35.0-51.0); MEAN CELL VOLUME 88.3 fl (80.0-94.0); MEAN CORPUSCULAR HEMOGLOBIN 29.1 pg (27.0-31.0); MEAN CORPUSCULAR HGB CONC 32.9 g/dL (33.0-37.0); RED CELL DISTRIBUTION WIDTH 13.8 % (11.5-14.5); WHITE BLOOD COUNT 5.7 K/uL (4.8-10.8)
[2017-07-22 07:01] LABS: BLOOD UREA NITROGEN 8 mg/dl (9-20); CALCIUM 9.2 mg/dL (8.4-10.2); CARBON DIOXIDE 26 mmol/L (22-30); CHLORIDE 104 mmol/L (98-107); GFR AFRICAN-AMERICAN > 60; GLUCOSE,RANDOM 114 mg/dL (75-110); MAGNESIUM 2.2 MG/DL (1.6-2.3); PHOSPHOROUS 3.9 mg/dl (2.5-4.5); POTASSIUM 3.6 MMOL/L (3.6-5.0); SODIUM 140 mmol/l (132-148)
[2017-07-22] MEDS: Albuterol 0.083% Inhal Sol (2.5 mg/3 mL) UD INH SCH ×3 (11:41→19:56)
--- NOTE | 2017-07-22 12:14 | RAD ---
PROCEDURE: CHEST RADIOGRAPH, 1 VIEW HISTORY: cough COMPARISON: Comparison chest 07/17/2017 FINDINGS: LUNGS: Poor inspiration with low lung volumes and mild crowded bronchovascular markings. . PLEURA: No pneumothorax or pleural fluid seen. CARDIOVASCULAR: Heart appears enlarged. OSSEOUS STRUCTURES: No significant abnormalities. VISUALIZED UPPER ABDOMEN: Normal. OTHER FINDINGS: None. IMPRESSION: Poor inspiration with crowded bronchovascular markings. Cardiomegaly. .
--- NOTE | 2017-07-22 13:26 | PN ---
DATE: 07/22/2017 SUBJECTIVE: The patient is seen for Dr. Hadley. The patient is seen and examined. Interim events noted. The patient remains in intensive care unit. The patient is awake, responsive, poorly communicative. Denies any specific complaints. No shortness of breath. No chest pain. Complains of occasional cough. PHYSICAL EXAMINATION: GENERAL: The patient is in no acute distress. VITAL SIGNS: Stable, temperature 98.2, pulse 94, respiration 21, blood pressure 138/82. HEENT: The patient has poor oral dentition and poor oral hygiene. No nystagmus. NECK: No JVD. No thyromegaly. No lymphadenopathy. HEART: S1 and S2, normal and regular. No significant murmur, gallop or rub is heard. LUNGS: Shows good bilateral air entry. No rales or rhonchi. ABDOMEN: Soft, nontender. No organomegaly. No fluid. Bowel sounds are plus. EXTREMITIES: No edema. No calf swelling. No tenderness. No acute ischemia. deformity CENTRAL NERVOUS SYSTEM: Essentially unchanged. DIAGNOSTIC DATA: Available diagnostic data reviewed. WBC 5.7, hemoglobin 14.5, hematocrit 44.1, platelet 209. Sodium 140, potassium 3.6, chloride 104, bicarbonate 26, BUN 8, creatinine 0.7. IMPRESSION: Psychiatry interventions noted and appreciated. Overall, the patient is medically stable. Telemetry monitoring does not show any significant arrhythmia. Overall, available diagnostic data reviewed. PLAN: As ordered. Paul Romero MD
[2017-07-23] MEDS: Albuterol 0.083% Inhal Sol (2.5 mg/3 mL) UD INH SCH ×4 (07:36→19:06)
[2017-07-23 08:10] LABS: ALB/GLOB RATIO 1.4 (1.0-2.1); ALKALINE PHOSPHATASE 87 U/L (38-126); ALT/SGPT 32 U/L (21-72); AST/SGOT 19 U/L (17-59); BILIRUBIN,TOTAL 0.4 mg/dl (0.2-1.3); BLOOD UREA NITROGEN 15 mg/dl (9-20); CALCIUM 8.9 mg/dL (8.4-10.2); CARBON DIOXIDE 25 mmol/L (22-30); CHLORIDE 104 mmol/L (98-107); GFR AFRICAN-AMERICAN > 60; GLUCOSE,RANDOM 100 mg/dL (75-110); POTASSIUM 3.8 MMOL/L (3.6-5.0); SODIUM 140 mmol/l (132-148); TOTAL PROTEIN 6.6 G/DL (6.3-8.2)
[2017-07-23 08:24] LABS: MEAN CELL VOLUME 88.6 fl (80.0-94.0); MEAN CORPUSCULAR HEMOGLOBIN 29.4 pg (27.0-31.0); MEAN CORPUSCULAR HGB CONC 33.2 g/dL (33.0-37.0); RED CELL DISTRIBUTION WIDTH 13.6 % (11.5-14.5); WHITE BLOOD COUNT 5.6 K/uL (4.8-10.8)
[2017-07-23] MEDS: Promethazine/Cod 6.25mg-10mg/5ml Syr UD PO PRN ×3 (08:43→21:36)
--- NOTE | 2017-07-23 22:44 | PN ---
DATE: 07/23/2017 SUBJECTIVE: The patient seen and examined. Interim events noted. The patient is out of intensive unit care unit, in progressive care unit with telemetry monitoring. Patient feels okay. The patient complains of occasional cough. No chest pain, no shortness of breath. PHYSICAL EXAMINATION GENERAL: The patient is no acute distress. VITAL SIGNS: Vital signs are stable. HEART: S1 and S2 normal and regular. LUNGS: Good bilateral air entry. ABDOMEN: Soft and nontender. EXTREMITIES: No calf swelling. No tenderness. No acute ischemia. No edema. NEUROLOGIC: SANITATION TECHNICIAN exam is essentially unchanged and the patient has chronic cerebral palsy. DIAGNOSTIC DATA: Available diagnostic data reviewed. Telemetry monitoring does not show significant arrhythmias. ASSESSMENT: Overall, the patient's general medical condition is stable. PLAN: As ordered. Case and plan discussed with the patient. Paul Romero MD
[2017-07-24] MEDS: Promethazine/Cod 6.25mg-10mg/5ml Syr UD PO PRN ×3 (05:18→21:43)
[2017-07-24] MEDS: Albuterol 0.083% Inhal Sol (2.5 mg/3 mL) UD INH SCH ×4 (07:51→19:54)
--- NOTE | 2017-07-24 09:02 | PN ---
DATE: 07/24/2017 SUBJECTIVE: The patient seen and examined. Interim events noted. The patient remains in progressive care unit on telemetry monitoring, feels okay. No specific complaint of chest pain, no shortness of breath. The patient is sleeping comfortably. PHYSICAL EXAMINATION: GENERAL: The patient is no acute distress. VITAL SIGNS: Stable. HEART: S1 and S2 normal and regular. LUNGS: Good bilateral air exchange. ABDOMEN: Soft and nontender. EXTREMITIES: No edema. No calf swelling. No tenderness. No acute ischemia. BEAD SUPERVISOR: Essentially unchanged. DIAGNOSTIC DATA: Available diagnostic data reviewed. ASSESSMENT: Overall, the patient's general medical condition is stable. PLAN: As ordered. Paul Romero MD
[2017-07-25] MEDS: Albuterol 0.083% Inhal Sol (2.5 mg/3 mL) UD INH SCH ×4 (07:45→19:22)
[2017-07-25] MEDS ORDERED: Sodium Chloride 3% for Inhalation 4 ML VIAL.NEB IH PRN (10:43)
[2017-07-25] MEDS: Promethazine/Cod 6.25mg-10mg/5ml Syr UD PO PRN ×2 (13:33→21:56)
--- NOTE | 2017-07-25 14:51 | CT ---
PROCEDURE: CT Chest without contrast HISTORY: productive cough COMPARISON: Chest radiograph from 07/22/2017 TECHNIQUE: Contiguous axial images were obtained through the chest without intravenous contrast enhancement. Sagittal and coronal reconstructions were performed. Radiation dose (DLP): 425.35 mGy-cm. This CT exam was performed using one or more of the following dose reduction techniques: Automated exposure control, adjustment of the mA and/or kV according to patient size, and/or use of iterative reconstruction technique. FINDINGS: LUNGS: The lungs are well inflated. There is dependent atelectasis in the lower lobes. There is no focal consolidation, mass or endobronchial lesions. MEDIASTINUM: The aorta is not dilated. There is no aortic aneurysm. There is no pathologic mediastinal adenopathy. The heart is normal in size. There is no pericardial effusion PLEURA: No pleural fluid. No pneumothorax. BONES: No fracture. No destructive lesion. Multilevel degenerative disc disease. UPPER ABDOMEN: Grossly unremarkable. OTHER FINDINGS: None. IMPRESSION: No evidence of consolidation, pleural effusion or mediastinal adenopathy.
--- NOTE | 2017-07-25 20:50 | CP.PCM.PN ---
Subjective - Date & Time of Evaluation Date of Evaluation: 07/25/17 Time of Evaluation: 22:22 - Subjective Subjective: Above noted Coughing Objective - Vital Signs/Intake and Output Vital Signs (last 24 hours): Temp Pulse Resp BP Pulse Ox 97.6 F 84 20 132/83 97 07/25/17 17:02 07/25/17 17:02 07/25/17 17:02 07/25/17 17:02 07/25/17 17:02 - Medications Medications: Current Medications Al Hydrox/Mg Hydrox/Simethicone (Maalox Plus 30 Ml) 30 ml PO Q4 PRN PRN Reason: Indigestion / Heartburn Albuterol Sulfate (Albuterol 0.083% Inhal Opal (2.5 Mg/3 Ml) Ud) 2.5 mg INH RQID [facility] Last Admin: 07/25/17 19:22 Dose: 2.5 mg Cyclobenzaprine HCl (Flexeril) 10 mg PO TID PRN PRN Reason: Muscle spasm Last Admin: 07/23/17 08:39 Dose: 10 mg Famotidine (Pepcid) 40 mg PO HS [facility] [place] Last Admin: 07/24/17 21:43 Dose: 40 mg Ibuprofen (Motrin Tab) 600 mg PO Q8 PRN PRN Reason: Pain, moderate (4-7) Last Admin: 07/25/17 13:32 Dose: 600 mg Loperamide HCl (Imodium) 2 mg PO QID PRN PRN Reason: Diarrhea Last Admin: 07/20/17 12:45 Dose: 2 mg Naloxone HCl (Narcan) 0.4 mg IV ONCE PRN PRN Reason: RESPIRATORY DEPRESSION Last Admin: 07/17/17 18:46 Dose: 0.4 mg Phenytoin Sodium (Dilantin) 100 mg PO Q8 [facility] Last Admin: 07/25/17 16:02 Dose: 100 mg Promethazine HCl/Codeine (Phenergan/Codeine Oral Syrup) 5 ml PO Q6 PRN PRN Reason: Cough Last Admin: 07/25/17 13:33 Dose: 5 ml - Labs Labs: 07/23/17 06:00 07/23/17 06:00 PT 12.4 Seconds (9.8-13.1) 07/17/17 16:00 INR 1.2 (0.9-1.2) 07/17/17 16:00 APTT 27.9 Seconds (25.6-37.1) 07/17/17 16:00 - Respiratory Exam Respiratory Exam: NORMAL BREATHING PATTERN - Cardiovascular Exam Cardiovascular Exam: REGULAR RHYTHM - GI/Abdominal Exam GI & Abdominal Exam: Normal Bowel Sounds Assessment and Plan - Assessment and Plan (Free Text) Assessment: Coughing Hx Asthma B agonists Deconditioning TCU Drug overdose/ dependence/ withdrawal Opiates BZD Methadone Clonidine as per Psych Cerebral Palsy Seizure disorder Neuro Dilantin
[2017-07-26] MEDS: Promethazine/Cod 6.25mg-10mg/5ml Syr UD PO PRN ×3 (05:52→22:39)
[2017-07-26] MEDS: Albuterol 0.083% Inhal Sol (2.5 mg/3 mL) UD INH SCH ×4 (08:09→19:15)
--- NOTE | 2017-07-26 09:48 | CP.PCM.CON ---
History of Present Illness - History of Present Illness History of Present Illness: This 56 year old male who is a non-smoker with cerebral palsy, seizure disorder and a long history of poly-substance abuse, was admitted through the emergency room after being found unresponsive with history of seizure. During his hospitalization he began to complain of chest congestion and productive cough. A chest x-ray did not show any evidence of pneumonia. He has not been febrile and there has been no leukocytosis. Ct scan of the chest did show some degree of dependant basal atelectasis, possibly a secondary effect of being in bed. Past Patient History - Infectious Disease Hx of Infectious Diseases: None - Past Medical History & Family History Past Medical History?: Yes - Past Social History Smoking Status: Never Smoked (as per patient) Chewing Tobacco Use: No Cigar Use: No Alcohol: None Drugs: Opiates Home Situation {Lives}: With Family - CARDIAC Hx Cardiac Disorders: No - PULMONARY Hx Asthma: Yes Hx Bronchitis: Yes - NEUROLOGICAL Hx Seizures: Yes Other/Comment: Cerebral palsy. - HEENT Hx HEENT Problems: No - RENAL Hx Kidney Stones: Yes - ENDOCRINE/METABOLIC Hx Endocrine Disorders: No - HEMATOLOGICAL/ONCOLOGICAL Hx Human Immunodeficiency Virus (HIV): No - INTEGUMENTARY Hx Dermatological Problems: No - MUSCULOSKELETAL/RHEUMATOLOGICAL Hx Falls: Yes Hx Spinal Stenosis: Yes - GASTROINTESTINAL Hx Gastroesophageal Reflux: Yes - GENITOURINARY/GYNECOLOGICAL Hx Genitourinary Disorders: No - PSYCHIATRIC Hx Emotional Abuse: No Hx Physical Abuse: No Hx Substance Use: Yes - SURGICAL HISTORY Hx Appendectomy: Yes Hx Tonsillectomy: Yes - ANESTHESIA Hx Anesthesia: Yes Hx Anesthesia Reactions: No Hx Malignant Hyperthermia: No Meds Allergies/Adverse Reactions: Allergies Allergy/AdvReac Type Severity Reaction Status Date / Time No Known Allergies Allergy Verified 04/18/17 15:46 - Medications Medications: Current Medications Al Hydrox/Mg Hydrox/Simethicone (Maalox Plus 30 Ml) 30 ml PO Q4 PRN PRN Reason: Indigestion / Heartburn Albuterol Sulfate (Albuterol 0.083% Inhal Opal (2.5 Mg/3 Ml) Ud) 2.5 mg INH RQID [facility] Last Admin: 07/26/17 08:09 Dose: 2.5 mg Cyclobenzaprine HCl (Flexeril) 10 mg PO TID PRN PRN Reason: Muscle spasm Last Admin: 07/23/17 08:39 Dose: 10 mg Famotidine (Pepcid) 40 mg PO HS [facility] Last Admin: 07/25/17 21:55 Dose: 40 mg Ibuprofen (Motrin Tab) 600 mg PO Q8 PRN PRN Reason: Pain, moderate (4-7) Last Admin: 07/26/17 05:53 Dose: 600 mg Loperamide HCl (Imodium) 2 mg PO QID PRN PRN Reason: Diarrhea Last Admin: 07/26/17 05:53 Dose: 2 mg Naloxone HCl (Narcan) 0.4 mg IV ONCE PRN PRN Reason: RESPIRATORY DEPRESSION Last Admin: 07/17/17 18:46 Dose: 0.4 mg Phenytoin Sodium (Dilantin) 100 mg PO Q8 [facility] Last Admin: 07/26/17 08:43 Dose: 100 mg Promethazine HCl/Codeine (Phenergan/Codeine Oral Syrup) 5 ml PO Q6 PRN PRN Reason: Cough Last Admin: 07/26/17 05:52 Dose: 5 ml Physical Exam - Additional Findings Additional findings: Chronically ill appearing male in no acute distress. Contractures of both upper extremities noted. Poor dental hygiene noted. Dysarthric speech. Neck is supple and trachea midline. No carotid bruit. No dullness on chest percussion. Breath sounds are present bilaterally. No wheezes. Scattered sonorous rhonchi in dependant areas. No bronchial breath sounds or egophony. Heart sounds are well heard, rhythm is regular. Results - Vital Signs Recent Vital Signs: Last Vital Signs Temp 97.3 F L 07/26/17 08:00 Pulse 102 H 07/26/17 08:00 Resp 18 07/26/17 08:00 BP 133/87 07/26/17 08:00 Pulse Ox 98 07/26/17 08:00 - Labs Result Diagrams: 07/27/17 09:00 07/27/17 09:00 Assessment & Plan (1) Cough Status: Acute Priority: High Comment: Appears to be related to URI with resultant bronchitis, improving. (2) Bronchitis Status: Acute Priority: High Comment: Improving. Still has yellow sputum for one week now. Will place on oral antibiotic. Continue aerosol therapy. - Date & Time Date: 07/26/17 Time: 09:46
--- NOTE | 2017-07-26 17:38 | CP.PCM.PN ---
Subjective - Date & Time of Evaluation Date of Evaluation: 07/26/17 Time of Evaluation: 22:22 - Subjective Subjective: Above noted Objective - Vital Signs/Intake and Output Vital Signs (last 24 hours): Temp Pulse Resp BP Pulse Ox 97.6 F 94 H 20 128/80 96 07/26/17 17:00 07/26/17 17:00 07/26/17 17:00 07/26/17 17:00 07/26/17 17:00 Intake and Output: 07/26/17 07/26/17 06:59 18:59 Output Total 350 Balance -350 - Medications Medications: Current Medications Al Hydrox/Mg Hydrox/Simethicone (Maalox Plus 30 Ml) 30 ml PO Q4 PRN PRN Reason: Indigestion / Heartburn Albuterol Sulfate (Albuterol 0.083% Inhal Opal (2.5 Mg/3 Ml) Ud) 2.5 mg INH RQID [facility] Last Admin: 07/26/17 16:05 Dose: 2.5 mg Amoxicillin (Amoxil 500 Mg Cap) 500 mg PO Q8 [facility] Last Admin: 07/26/17 16:57 Dose: 500 mg Cyclobenzaprine HCl (Flexeril) 10 mg PO TID PRN PRN Reason: Muscle spasm Last Admin: 07/23/17 08:39 Dose: 10 mg Famotidine (Pepcid) 40 mg PO HS [facility] Last Admin: 07/25/17 21:55 Dose: 40 mg Ibuprofen (Motrin Tab) 600 mg PO Q8 PRN PRN Reason: Pain, moderate (4-7) Last Admin: 07/26/17 05:53 Dose: 600 mg Loperamide HCl (Imodium) 2 mg PO QID PRN PRN Reason: Diarrhea Last Admin: 07/26/17 05:53 Dose: 2 mg Naloxone HCl (Narcan) 0.4 mg IV ONCE PRN PRN Reason: RESPIRATORY DEPRESSION Last Admin: 07/17/17 18:46 Dose: 0.4 mg Phenytoin Sodium (Dilantin) 100 mg PO Q8 [facility] Last Admin: 07/26/17 16:57 Dose: 100 mg Promethazine HCl/Codeine (Phenergan/Codeine Oral Syrup) 5 ml PO Q6 PRN PRN Reason: Cough Last Admin: 07/26/17 13:56 Dose: 5 ml - Labs Labs: 07/23/17 06:00 07/23/17 06:00 PT 12.4 Seconds (9.8-13.1) 07/17/17 16:00 INR 1.2 (0.9-1.2) 07/17/17 16:00 APTT 27.9 Seconds (25.6-37.1) 07/17/17 16:00 - Respiratory Exam Respiratory Exam: NORMAL BREATHING PATTERN - Cardiovascular Exam Cardiovascular Exam: REGULAR RHYTHM - GI/Abdominal Exam GI & Abdominal Exam: Normal Bowel Sounds Assessment and Plan - Assessment and Plan (Free Text) Assessment: Deconditioning TCU Coughing Hx Asthma B agonists Drug overdose/ dependence/ withdrawal Opiates BZD Methadone Clonidine as per Psych Cerebral Palsy Seizure disorder Neuro Dilantin
[2017-07-27] MEDS: Albuterol 0.083% Inhal Sol (2.5 mg/3 mL) UD INH SCH ×2 (08:02→11:33)
[2017-07-27 08:14] VITALS: RESP 20
--- NOTE | 2017-07-27 08:29 | CP.PCM.PN ---
Subjective - Date & Time of Evaluation Date of Evaluation: 07/27/17 Time of Evaluation: 08:29 - Subjective Subjective: Interim events reviewed. Remains afebrile. Vital signs have been stable. Complains of continued cough asking for more cough medicine, but when observed he is lying comfortably in bed. Scattered rhonchi present bilaterally, but no rales, wheezes or bronchial breath sounds. Added benzonatate gelcaps to present regimen. Added amoxicillin PO yesterday for bronchitis. Continue aerosol therapy. Objective - Vital Signs/Intake and Output Vital Signs (last 24 hours): Temp Pulse Resp BP Pulse Ox 98.3 F 105 H 20 147/91 H 99 07/27/17 08:00 07/27/17 08:00 07/27/17 08:00 07/27/17 08:00 07/27/17 08:00 - Medications Medications: Current Medications Al Hydrox/Mg Hydrox/Simethicone (Maalox Plus 30 Ml) 30 ml PO Q4 PRN PRN Reason: Indigestion / Heartburn Albuterol Sulfate (Albuterol 0.083% Inhal Opal (2.5 Mg/3 Ml) Ud) 2.5 mg INH RQID [facility] Last Admin: 07/27/17 08:02 Dose: 2.5 mg Amoxicillin (Amoxil 500 Mg Cap) 500 mg PO Q8 [facility] Last Admin: 07/27/17 01:49 Dose: 500 mg Benzonatate (Tessalon Perles) 200 mg PO Q8H [facility] Cyclobenzaprine HCl (Flexeril) 10 mg PO TID PRN PRN Reason: Muscle spasm Last Admin: 07/23/17 08:39 Dose: 10 mg Famotidine (Pepcid) 40 mg PO HS [facility] Last Admin: 07/26/17 22:34 Dose: 40 mg Ibuprofen (Motrin Tab) 600 mg PO Q8 PRN PRN Reason: Pain, moderate (4-7) Last Admin: 07/26/17 05:53 Dose: 600 mg Loperamide HCl (Imodium) 2 mg PO QID PRN PRN Reason: Diarrhea Last Admin: 07/26/17 05:53 Dose: 2 mg Naloxone HCl (Narcan) 0.4 mg IV ONCE PRN PRN Reason: RESPIRATORY DEPRESSION Last Admin: 07/17/17 18:46 Dose: 0.4 mg Phenytoin Sodium (Dilantin) 100 mg PO Q8 [facility] Last Admin: 07/27/17 01:44 Dose: 100 mg Promethazine HCl/Codeine (Phenergan/Codeine Oral Syrup) 5 ml PO Q6 PRN PRN Reason: Cough Last Admin: 07/26/17 22:39 Dose: 5 ml - Labs Labs: 07/23/17 06:00 07/23/17 06:00 PT 12.4 Seconds (9.8-13.1) 07/17/17 16:00 INR 1.2 (0.9-1.2) 07/17/17 16:00 APTT 27.9 Seconds (25.6-37.1) 07/17/17 16:00 Assessment and Plan (1) Cough Status: Acute (2) Bronchitis Status: Acute
[2017-07-27 09:26] LABS: HEMATOCRIT 45.7 % (35.0-51.0); MEAN CORPUSCULAR HEMOGLOBIN 29.5 pg (27.0-31.0); MEAN CORPUSCULAR HGB CONC 33.9 g/dL (33.0-37.0); RED CELL DISTRIBUTION WIDTH 13.7 % (11.5-14.5); WHITE BLOOD COUNT 7.5 K/uL (4.8-10.8)
[2017-07-27 09:34] LABS: ALB/GLOB RATIO 1.3 (1.0-2.1); ALKALINE PHOSPHATASE 118 U/L (38-126); ALT/SGPT 33 U/L (21-72); AST/SGOT 23 U/L (17-59); BILIRUBIN,TOTAL 0.5 mg/dl (0.2-1.3); BLOOD UREA NITROGEN 12 mg/dl (9-20); CARBON DIOXIDE 23 mmol/L (22-30); CHLORIDE 105 mmol/L (98-107); GFR AFRICAN-AMERICAN > 60; GLUCOSE,RANDOM 107 mg/dL (75-110); POTASSIUM 4.8 MMOL/L (3.6-5.0); SODIUM 141 mmol/l (132-148); TOTAL PROTEIN 8.4 G/DL (6.3-8.2)
[2017-07-27 12:41] VITALS: BP 136/95; PULSE 109; TEMP 98.1; O2SAT 97
--- NOTE | 2017-07-27 13:35 | CP.PCM.CON ---
History of Present Illness - History of Present Illness History of Present Illness: Psychiatry consult follow-up CC: I'm ready to go home. HPI: 56 years old male with hx of noncompliance with medication, Cerebral Palsy , Seizure and multiple admissions for Cocaine and Heroin Overdose. He is brought to the ED after a witnessed seizure at home. Patient reports that he continues to abuse Heroin. He is not compliant with methadone maintenance. He denies ideation to harm himself and denies suicide attempt prior to admission. Patient counseled on the dangers of substance abuse. He does not want psychiatric admission at this time. Patient denies taking antidepressants prior to admission and is not interested in tx with psychotropic medications at this time. NO AH/VH/SI/HI/paranoia/delusions. Denies depression/anxiety/ PMH: Nephrolithiasis; Seizure; Cerebral palsy; GERD; Asthma?; Spinal stenosis; Non-compliacec with medications PSH: Appendectomy; Tonsillectomy SH: Live with Family; Former Smoker; Substance abuse with Heroin, Cocaine, uses walker and cane to ambulate FH: Unknown family hx Allergies: NKDA Impression: 56 yo male w/ history of noncompliance with medications, Cerebral Palsy, Seizure and multiple admissions for Cocaine and Heroin Overdose, brought to the ED for seizure. Patent's primary diagnosis is polysubstance dependence. Patient denies suicide attempt or current suicidal ideation. Patient does not need acute inpatient psychiatric admission at this time. -No acute inpatient psychiatric admission indicated at this time -Psychoeducation re: substance abuse and non-compliance w/ treatment Past Patient History - Infectious Disease Hx of Infectious Diseases: None - Past Medical History & Family History Past Medical History?: Yes - Past Social History Smoking Status: Never Smoked (as per patient) Chewing Tobacco Use: No Cigar Use: No Alcohol: None Drugs: Opiates Home Situation {Lives}: With Family - CARDIAC Hx Cardiac Disorders: No - PULMONARY Hx Asthma: Yes Hx Bronchitis: Yes - NEUROLOGICAL Hx Seizures: Yes Other/Comment: Cerebral palsy. - HEENT Hx HEENT Problems: No - RENAL Hx Kidney Stones: Yes - ENDOCRINE/METABOLIC Hx Endocrine Disorders: No - HEMATOLOGICAL/ONCOLOGICAL Hx Human Immunodeficiency Virus (HIV): No - INTEGUMENTARY Hx Dermatological Problems: No - MUSCULOSKELETAL/RHEUMATOLOGICAL Hx Falls: Yes Hx Spinal Stenosis: Yes - GASTROINTESTINAL Hx Gastroesophageal Reflux: Yes - GENITOURINARY/GYNECOLOGICAL Hx Genitourinary Disorders: No - PSYCHIATRIC Hx Emotional Abuse: No Hx Physical Abuse: No Hx Substance Use: Yes - SURGICAL HISTORY Hx Appendectomy: Yes Hx Tonsillectomy: Yes - ANESTHESIA Hx Anesthesia: Yes Hx Anesthesia Reactions: No Hx Malignant Hyperthermia: No Meds Allergies/Adverse Reactions: Allergies Allergy/AdvReac Type Severity Reaction Status Date / Time No Known Allergies Allergy Verified 04/18/17 15:46 - Medications Medications: Current Medications Al Hydrox/Mg Hydrox/Simethicone (Maalox Plus 30 Ml) 30 ml PO Q4 PRN PRN Reason: Indigestion / Heartburn Albuterol Sulfate (Albuterol 0.083% Inhal Opal (2.5 Mg/3 Ml) Ud) 2.5 mg INH RQID [facility] Last Admin: 07/27/17 11:33 Dose: 2.5 mg Amoxicillin (Amoxil 500 Mg Cap) 500 mg PO Q8 [facility] Last Admin: 07/27/17 09:46 Dose: 500 mg Benzonatate (Tessalon Perles) 200 mg PO Q8H [facility] Last Admin: 07/27/17 09:30 Dose: 200 mg Cyclobenzaprine HCl (Flexeril) 10 mg PO TID PRN PRN Reason: Muscle spasm Last Admin: 07/23/17 08:39 Dose: 10 mg Famotidine (Pepcid) 40 mg PO HS [facility] Last Admin: 07/26/17 22:34 Dose: 40 mg Ibuprofen (Motrin Tab) 600 mg PO Q8 PRN PRN Reason: Pain, moderate (4-7) Last Admin: 07/26/17 05:53 Dose: 600 mg Loperamide HCl (Imodium) 2 mg PO QID PRN PRN Reason: Diarrhea Last Admin: 07/26/17 05:53 Dose: 2 mg Naloxone HCl (Narcan) 0.4 mg IV ONCE PRN PRN Reason: RESPIRATORY DEPRESSION Last Admin: 07/17/17 18:46 Dose: 0.4 mg Phenytoin Sodium (Dilantin) 100 mg PO Q8 [facility] Last Admin: 07/27/17 09:46 Dose: 100 mg Promethazine HCl/Codeine (Phenergan/Codeine Oral Syrup) 5 ml PO Q6 PRN PRN Reason: Cough Last Admin: 07/26/17 22:39 Dose: 5 ml Results - Vital Signs Recent Vital Signs: Last Vital Signs Temp 98.1 F 07/27/17 12:40 Pulse 109 H 07/27/17 12:40 Resp 20 07/27/17 12:40 BP 136/95 H 07/27/17 12:40 Pulse Ox 97 07/27/17 12:40 - Labs Result Diagrams: 07/27/17 09:00 07/27/17 09:00 Labs: Laboratory Results - last 24 hr 07/27/17 07/27/17 07/27/17 09:00 09:00 09:00 WBC 7.5 RBC 5.25 Hgb 15.5 Hct 45.7 MCV 87.0 MCH 29.5 MCHC 33.9 RDW 13.7 Plt Count 319 Sodium 141 Potassium 4.8 Chloride 105 Carbon Dioxide 23 Anion Gap 18 BUN 12 Creatinine 0.5 L Est GFR ( Amer) > 60 Est GFR (Non-Af Amer) > 60 Random Glucose 107 Calcium 10.0 Total Bilirubin 0.5 AST 23 ALT 33 Alkaline Phosphatase 118 Total Protein 8.4 H Albumin 4.7 Globulin 3.7 Albumin/Globulin Ratio 1.3 Phenytoin 11.7
--- NOTE | 2017-07-27 20:24 | CP.PCM.PN ---
Subjective - Date & Time of Evaluation Date of Evaluation: 07/27/17 Time of Evaluation: 22:22 - Subjective Subjective: Above noted Long d/w PT and SS Objective - Vital Signs/Intake and Output Vital Signs (last 24 hours): Temp Pulse Resp BP Pulse Ox 98.1 F 109 H 20 136/95 H 97 07/27/17 12:40 07/27/17 12:40 07/27/17 12:40 07/27/17 12:40 07/27/17 12:40 Intake and Output: 07/27/17 07/28/17 18:59 06:59 Intake Total 1200 Balance 1200 - Labs Labs: 07/27/17 09:00 07/27/17 09:00 PT 12.4 Seconds (9.8-13.1) 07/17/17 16:00 INR 1.2 (0.9-1.2) 07/17/17 16:00 APTT 27.9 Seconds (25.6-37.1) 07/17/17 16:00 - Respiratory Exam Respiratory Exam: NORMAL BREATHING PATTERN - Cardiovascular Exam Cardiovascular Exam: REGULAR RHYTHM - GI/Abdominal Exam GI & Abdominal Exam: Normal Bowel Sounds Assessment and Plan - Assessment and Plan (Free Text) Assessment: Drug overdose/ dependence/ withdrawal Opiates BZD Methadone Clonidine as per Psych Cerebral Palsy Seizure disorder Neuro Dilantin Coughing Hx Asthma B agonists
== END 2017-07-27 14:43 | disposition home or self-care (01) | DRG 101 ==
LOC: H.ER 14:59 → OBSVTOIN 18:12 → H.ERHOLD 18:12 → H.ICU/CCU 21:24 → H.TEL 07-22 14:53
PROVIDERS: ADMIT Family Medicine Geriatric Medicine; ATTEND Family Medicine Geriatric Medicine
PROC: HZ36ZZZ Individual Counseling for Substance Abuse Treatment, Psychoeducation (ICD-10-PCS; principal; 2017-07-17)
PROC: HZ86ZZZ Medication Management for Substance Abuse Treatment, Clonidine (ICD-10-PCS; 2017-07-17)
DX: G40.909 Epilepsy, unspecified, not intractable, without status epilepticus (principal); F13.20 Sedative, hypnotic or anxiolytic dependence, uncomplicated; G80.9 Cerebral palsy, unspecified; F11.23 Opioid dependence with withdrawal; T40.3X1A Poisoning by methadone, accidental (unintentional), initial encounter; R41.82 Altered mental status, unspecified; T40.5X1A Poisoning by cocaine, accidental (unintentional), initial encounter; Y92.009 Unspecified place in unspecified non-institutional (private) residence as the place of occurrence of the external cause; N18.9 Chronic kidney disease, unspecified; Z91.14 Patient's other noncompliance with medication regimen; K21.9 Gastro-esophageal reflux disease without esophagitis; J40 Bronchitis, not specified as acute or chronic; J45.909 Unspecified asthma, uncomplicated; F17.210 Nicotine dependence, cigarettes, uncomplicated

== ENCOUNTER 2017-11-20 18:16 | Emergency (ER) | payer MEDICAID, MEDICARE ==
[2017-11-20 18:16] VITALS: BMI 24.1
--- NOTE | 2017-11-20 19:13 | ED PDOC ---
HPI: Abdomen Time Seen by Provider: 11/20/17 18:37 Chief Complaint (Nursing): GI Problem Chief Complaint (Provider): contsipation History Per: Patient History/Exam Limitations: no limitations Additional Complaint(s): 57yoM in ED for eval of constipation x 6 days pt has tried various OTC medication without relief and state that he is now feeling nauseous without vomiting and no fever admits to being able to pass gas without problems. denies distention of his abd. hx of opiod abuse, seizure cerebral palsy pmd: MD traci Past Medical History Reviewed: Historical Data, Nursing Documentation, Vital Signs Vital Signs: Last Vital Signs Temp 96.7 F L 11/20/17 18:18 Pulse 92 H 11/21/17 00:13 Resp 16 11/21/17 00:13 BP 134/86 11/21/17 00:13 Pulse Ox 100 11/21/17 00:17 - Medical History PMH: Asthma, Bronchitis, Kidney Stones, Chronic Kidney Disease, Seizures Denies: Diabetes (Patient denied), Hepatitis (Patient denied), HIV (Patient denied), HTN (Patient denied), Sexually Transmitted Disease (Patient denied) - Surgical History Surgical History: Appendectomy, Tonsillectomy - Family History Family History: States: No Known Family Hx - Immunization History Hx Tetanus Toxoid Vaccination: Yes (a few months ago) - Home Medications Home Medications: Ambulatory Orders Medication Instructions Recorded Mirtazapine [Remeron] 15 mg PO HS #15 tab 04/24/17 Sertraline [Zoloft] 100 mg PO DAILY #15 tab 04/24/17 traZODone [Desyrel] 50 mg PO HS #15 tab 04/24/17 Phenytoin, Extended [Dilantin] 100 mg PO Q8 #60 cer 07/27/17 Docusate [Colace] 100 mg PO Q12H PRN #10 cap 11/21/17 - Allergies Allergies/Adverse Reactions: Allergies Allergy/AdvReac Type Severity Reaction Status Date / Time No Known Allergies Allergy Verified 11/20/17 18:18 Review of Systems ROS Statement: Except As Marked, All Systems Reviewed And Found Negative Constitutional: Negative for: Fever, Chills Respiratory: Negative for: Cough, Shortness of Breath Gastrointestinal: Positive for: Nausea, Abdominal Pain. Negative for: Vomiting Physical Exam - Reviewed Nursing Documentation Reviewed: Yes Vital Signs Reviewed: Yes - Physical Exam Appears: Positive for: Well, Non-toxic, No Acute Distress Skin: Positive for: Normal Color, Warm, DRY Cardiovascular/Chest: Positive for: Regular Rate, Rhythm Respiratory: Positive for: CNT, Normal Breath Sounds Gastrointestinal/Abdominal: Positive for: Bowel Sounds, Soft, Tenderness ( diffuse). Negative for: Organomegaly, Mass, Distended, Guarding, Rebound, Hernia, Asicites Back: Positive for: Normal Inspection Extremity: Positive for: Normal ROM Neurologic/Psych: Positive for: Alert, Oriented - Laboratory Results Result Diagrams: 11/20/17 19:31 11/20/17 19:31 - ECG O2 Sat by Pulse Oximetry: 96 - Radiology X-Ray: Interpreted by Me (constipation) - Progress ED Course And Treament: concerns for obstruction will get flat and upright for initial exam Orders Category Date Time Status ABD & PELVIS IV CONTRAST ONLY [CT] Stat CT 11/20/17 18:37 Ordered AMYLASE Stat Chem 11/20/17 18:36 Ordered COMP METABOLIC PANEL Stat Chem 11/20/17 18:36 Ordered LIPASE Stat Chem 11/20/17 18:36 Ordered CBC (WITH DIFFERENTIAL) Stat SHON 11/20/17 18:36 Ordered Steel Rigger CONT NURSING 11/20/17 18:37 Active IV Insertion (Saline Lock) ONCE NURSING 11/20/17 18:37 Active ABD 2 VIEWS (FLAT/UP OR DECUB) [RAD] Stat Radiology 11/20/17 18:36 Ordered URINALYSIS Stat URINALYSIS 11/20/17 18:36 Ordered Disposition - Clinical Impression Clinical Impression: Constipation - Patient ED Disposition Is Patient to be Admitted: Transfer of Care - Disposition Disposition: Routine/Home Disposition Time: 17:09 Condition: GOOD Prescriptions: Docusate [Colace] 100 mg PO Q12H PRN #10 cap PRN Reason: Constipation Instructions: Constipation (ED) Forms: [employer] ([place]atem[place])
[2017-11-20] MEDS ORDERED: Sodium Chloride 0.9% 50 ML IV ONE (19:35)
[2017-11-20] MEDS ORDERED: Iohexol 300 100 ML IJ ONE (19:35)
[2017-11-20 19:40] LABS: BASO % 0.6 % (0.0-2.0); EOS # 0.1 K/uL (0.0-0.7); EOS % 2.8 % (0.0-4.0); HEMOGLOBIN 9.8 g/dL (12.0-18.0); LYMPH # 1.1 K/uL (1.0-4.3); LYMPH % 22.3 % (20.0-40.0); MEAN CELL VOLUME 84.8 fl (80.0-94.0); MEAN PLATELET VOLUME 7.7 fl (7.2-11.7); MONO # 0.3 K/uL (0.0-0.8); MONO % 5.2 % (0.0-10.0); NEUT # 3.5 K/uL (1.8-7.0); NEUT % 69.1 % (50.0-75.0); NRBC % 0.1 % (0.0-0.0); RBC 3.5 Mil/uL (4.40-5.90); RED CELL DISTRIBUTION WIDTH 13.3 % (11.5-14.5)
[2017-11-20 19:52] LABS: ALB/GLOB RATIO 1.2 (1.0-2.1); ALBUMIN 3.4 g/dL (3.5-5.0); ALT/SGPT 33 U/L (21-72); AMYLASE 50 U/L (30-110); AST/SGOT 20 U/L (17-59); BLOOD UREA NITROGEN 11 mg/dl (9-20); CALCIUM 8.5 mg/dL (8.4-10.2); GFR AFRICAN-AMERICAN > 60; GFR NON-AFRICAN AMERICAN > 60; LIPASE 20 U/L (23-300)
[2017-11-20 20:45] LABS: BARBITURATES, UR NEGATIVE (NEGATIVE); PHENCYCLIDINE, UR NEGATIVE (NEGATIVE)
[2017-11-20 20:46] LABS: BENZODIAZEPINES, UR POSITIVE (NEGATIVE); OPIATES, UR POSITIVE (NEGATIVE)
[2017-11-20 21:46] LABS: SQUAMOUS EPITHIAL < 1 /hpf (0-5); URINE BILIRUBIN NEGATIVE (NEGATIVE); URINE BLOOD NEGATIVE (NEGATIVE); URINE CLARITY SLIGHTY-CLOUDY (Clear); URINE COLOR YELLOW (YELLOW); URINE GLUCOSE (UA) NEG (Normal); URINE LEUKOCYTE ESTERASE NEG Leu/uL (Negative); URINE NITRATE NEGATIVE (NEGATIVE); URINE PROTEIN NEGATIVE (NEGATIVE); URINE UROBILINOGEN 0.2-1.0 mg/dL (0.2-1.0)
--- NOTE | 2017-11-20 22:34 | CT ---
EXAM: CT Abdomen and Pelvis Without Intravenous Contrast CLINICAL HISTORY: 57 years old, male; Pain; Abdominal pain; Generalized; Additional info: Abdominal pain, constipation TECHNIQUE: Axial computed tomography images of the abdomen and pelvis without intravenous contrast. All CT scans at this facility use one or more dose reduction techniques, viz.: automated exposure control; ma/kV adjustment per patient size (including targeted exams where dose is matched to indication; i.e. head); or iterative reconstruction technique. Coronal and sagittal reformatted images were created and reviewed. COMPARISON: CT - ABD PELVIS W/O PO OR IV CONT 2016-02-13 12:30 FINDINGS: Limitations: Lack of intravenous contrast. Lower thorax: Small hiatal hernia. Mural thickening of distal esophagus. Mild stranding within adjacent fat. ABDOMEN: Liver: < 0.5 cm lesion, not visualized on previous examination. Gallbladder and bile ducts: No calcified stones. No ductal dilation. Pancreas: Unremarkable. No ductal dilation. Spleen: No splenomegaly. Adrenals: No mass. Kidneys and ureters: Probable RIGHT renal cyst. Small calculus within LEFT kidney. No hydronephrosis. Stomach and bowel: Large amount of stool within rectum. Apparent mild mural thickening of distal rectum. No obstruction. Appendix: No findings to suggest acute appendicitis. PELVIS: Bladder: Unremarkable. No stones. Reproductive: Unremarkable as visualized. ABDOMEN and PELVIS: Intraperitoneal space: No significant fluid collection. No free air. Bones/joints: Degenerative changes of spine. Chronic L5 pars defects with anterolisthesis. Hemangioma within spine. No acute fracture. Soft tissues: Unremarkable. Vasculature: Minimal atherosclerotic disease. No aneurysm. Lymph nodes: No pathologically enlarged lymph nodes. IMPRESSION: 1. Apparent mild mural thickening of distal rectum. Clinical correlation is needed. 2. Probable esophagitis. 3. Liver lesion. For patients with low to average risk of malignancy, no further follow-up is necessary. For patients with high risk of malignancy (known malignancy that can metastasize or other risk factors), recommend follow-up abdominal CT or MR in 6 months. 4. Incidental/non-acute findings are described above.
[2017-11-21 00:13] VITALS: RESP 16
--- NOTE | 2017-11-21 00:16 | ED PDOC ---
- Laboratory Results Result Diagrams: 11/20/17 19:31 11/20/17 19:31 - ECG O2 Sat by Pulse Oximetry: 100 Medical Decision Making Medical Decision Making: Endorsed pending CT of the abdomen and pelvis which shows constipation. Pt also with liver lesion. Discussed f/u Disposition - Clinical Impression Clinical Impression: Constipation - POA Present On Arrival: None - Disposition Disposition: Routine/Home Disposition Time: 00:16 Condition: GOOD Prescriptions: Docusate [Colace] 100 mg PO Q12H PRN #10 cap PRN Reason: Constipation Instructions: Constipation (ED) Forms: [email or web address] ([place])
[2017-11-21 00:23] VITALS: BP 134/86; PULSE 92; TEMP 96.7
--- NOTE | 2017-11-21 11:07 | RAD ---
HISTORY: constipation with nausea COMPARISON: No prior. FINDINGS: BOWEL: No bowel obstruction. Mild retained feces. No hepatic or splenic enlargement. No masses or abnormal intra-abdominal calcifications. BONES: Normal. OTHER FINDINGS: None. IMPRESSION: No active disease.
[2017-11-21 17:09] VITALS: O2SAT 96
== END 2017-11-21 01:33 | disposition home or self-care (01) ==
LOC: H.ER 18:16
DX: K59.00 Constipation, unspecified (principal); G80.9 Cerebral palsy, unspecified; J45.909 Unspecified asthma, uncomplicated; Z87.442 Personal history of urinary calculi
CPT/HCPCS: 74020; 74176; 80053; 81003; 82150; 83690; 85025; 99283; G0480; Q9967

== ENCOUNTER 2018-03-07 12:04 | Inpatient (IN) | payer MEDICARE ==
[2018-03-07 12:07] VITALS: BMI 23.1
--- NOTE | 2018-03-07 13:25 | ED PDOC ---
HPI: Trauma/Fall - HPI Time Seen by Provider: 03/07/18 12:15 Chief Complaint (Nursing): Trauma Chief Complaint (Provider): Right leg weakness History Per: Patient History/Exam Limitations: no limitations Onset/Duration Of Symptoms: Days (several weeks) Injury Occurred (Timing): Just Before Arrival Location Of Injury: Left: Hip Associated Symptoms: LOC. denies: Seizure Additional History Per: EMS, Family Additional Complaint(s): Tyree Pulliam is a 57 year old male, with a past medical history of cerebral palsy and seizures, who was brought to the emergency department via EMS for a fall onset prior to arrival. Patient states for the past several weeks he's had worsening right leg weakness. Patient reports that his right side is the " weaker side" due to cerebral palsy. Patient also reports falling x3 times yesterday due to tripping. This morning he was trying to get to the bathroom but his right leg became weak, causing him to fall down and hit his head on the floor. Patient states his nephew, Kelechi, saw him on the floor and woke him up. He was informed by his nephew that he heard him fall, came to him immediately and noticed he was unconscious for approximately 4 minutes but did not have any seizure-like activity. Patient states he regained his consciousness fully and had a headache to the back of his head, and left hip pain. Patient contacted Dr. Hutchison, who advised him to come to the ED. Patient denies any neck pain, chest pain, shortness of breath, abdominal pain, numbness or upper extremity pain. No further medical complaints. PMD: Dhiraj Hutchison - Fall Fall:Prior To Injury: Tripped Past Medical History Reviewed: Historical Data, Nursing Documentation, Vital Signs Vital Signs: Last Vital Signs Temp 97.6 F 03/07/18 16:05 Pulse 75 03/07/18 16:05 Resp 18 03/07/18 16:05 BP 120/75 03/07/18 16:05 Pulse Ox 98 03/07/18 19:32 - Medical History PMH: Asthma, Bronchitis, Kidney Stones, Chronic Kidney Disease, Seizures Denies: Diabetes (Patient denied), Hepatitis (Patient denied), HIV (Patient denied), HTN (Patient denied), Sexually Transmitted Disease (Patient denied) Other PMH: Cerebral Palsy - Surgical History Surgical History: Appendectomy, Tonsillectomy - Family History Family History: States: No Known Family Hx - Immunization History Hx Tetanus Toxoid Vaccination: Yes (a few months ago) - Home Medications Home Medications: Ambulatory Orders Medication Instructions Recorded Alprazolam [Xanax] 2 mg PO Q12 03/07/18 Gabapentin [Neurontin] 300 mg PO Q6 03/07/18 Phenytoin, Extended [Dilantin] 100 mg PO Q6 03/07/18 - Allergies Allergies/Adverse Reactions: Allergies Allergy/AdvReac Type Severity Reaction Status Date / Time No Known Allergies Allergy Verified 11/20/17 18:18 Review of Systems ROS Statement: Except As Marked, All Systems Reviewed And Found Negative Cardiovascular: Negative for: Chest Pain Respiratory: Negative for: Shortness of Breath Gastrointestinal: Negative for: Abdominal Pain Musculoskeletal: Positive for: Other (left hip pain). Negative for: Neck Pain, Shoulder Pain, Arm Pain, Hand Pain Neurological: Positive for: Weakness (right leg weakness), Headache. Negative for: Numbness Physical Exam - Reviewed Nursing Documentation Reviewed: Yes Vital Signs Reviewed: Yes - Physical Exam Appears: Positive for: Non-toxic, No Acute Distress Head Exam: Positive for: ATRAUMATIC, NORMAL INSPECTION, NORMOCEPHALIC Skin: Positive for: Normal Color, Warm, Dry Eye Exam: Positive for: Normal appearance, EOMI, PERRL ENT: Positive for: Normal ENT Inspection (Poor dentition) Neck: Positive for: Painless ROM, Supple Cardiovascular/Chest: Positive for: Regular Rate, Rhythm, Chest Non Tender. Negative for: Murmur Respiratory: Positive for: Normal Breath Sounds. Negative for: Respiratory Distress Gastrointestinal/Abdominal: Positive for: Normal Exam, Soft. Negative for: Tenderness Back: Positive for: Normal Inspection. Negative for: L CVA Tenderness, R CVA Tenderness, Vertebral Tenderness Extremity: Positive for: Normal ROM (hip Full ROM actively), Tenderness (left hip ), Other (upper extremity contractures). Negative for: Deformity (left hip) , Swelling (left hip) Neurologic/Psych: Positive for: Alert, Oriented (x3). Negative for: Motor/ Sensory Deficits - Laboratory Results Result Diagrams: 03/07/18 18:00 03/07/18 16:35 - ECG O2 Sat by Pulse Oximetry: 98 (RA) Pulse Ox Interpretation: Normal Medical Decision Making Medical Decision Making: Initial Impression: Right leg weakness, fall injury Initial Plan: --Head w/o contrast [CT] --EKG --Alcohol serum --CMP --CPK --Dilantin --Drug screen, urine --CBC w/ differential --Chest portable [RAD] --Hip Min 2v W/ Pelvis LT [RAD] --LS Spine AP/LAT [RAD] --Urinalysis --Reevaluation Patient was stuck >5 times but no blood or IV access was obtained. PICC line was placed by Dr. Negrete. 13:[address] FINDINGS: HEMORRHAGE: No intracranial hemorrhage. BRAIN: Pratt-white matter differentiation is preserved. There is no mass, mass effect or abnormal extra-axial fluid collection. There is no territorial infarction. VENTRICLES: The ventricles are normal in size, shape and configuration. CALVARIUM: There is no calvarial fracture or extracranial soft tissue swelling. PARANASAL SINUSES: There is mild scattered mucosal thickening in the left posterior ethmoid air cells. The remaining included paranasal sinuses are predominantly clear. MASTOID AIR CELLS: Predominantly clear. OTHER FINDINGS: None. IMPRESSION: No acute intracranial abnormality. 13:47 Lumbar Spine X-Ray FINDINGS: BONES: There is no acute fracture. There is an apparent lucency in the pars articularis at L5 with grade 1 anterior listhesis of L5 on S1. There is degenerative 6 mm retrolisthesis of L3 on L4. DISC SPACES: There are multilevel degenerative changes with anterior osteophytes, reduced disc heights and multilevel facet arthropathy, worse at L3-4. OTHER FINDINGS: There are no pathologic soft tissue calcifications. Both sacroiliac joints are normal. IMPRESSION: 1. No acute fracture. 2. Spondylolysis at L5 with grade 1 anterior listhesis of L5 on S1. 3. Multilevel degenerative disc disease worse at L3-4 with 6 mm degenerative retrolisthesis of L3 on L4. 13:48 Hip/Pelvis X-Ray FINDINGS: BONES: Bone alignment and mineralization are normal. There is no acute displaced fracture or bone destruction. JOINTS: The joint spaces are preserved. SOFT TISSUES: Normal. OTHER FINDINGS: There are multiple phleboliths in the pelvis. IMPRESSION: No acute displaced fracture or dislocation.Please note occult fractures cannot be excluded on plain radiographs. If there is a persistent clinical concern, an MRI of the hip may be performed for further evaluation. 13:50 CXR FINDINGS: LUNGS: There are low lung volumes. There is bibasilar atelectasis. No focal consolidation. PLEURA: No significant pleural effusion identified, no pneumothorax apparent. CARDIOVASCULAR: Normal. OSSEOUS STRUCTURES: No significant abnormalities. VISUALIZED UPPER ABDOMEN: Normal. OTHER FINDINGS: None. IMPRESSION: No active pulmonary disease. 1743 Phenytoin < 3 Pt. states he did take his dilantin this morning. Dilantin ER 100mg PO ordere.d 1930 Case, diagnostics, and radiologic findings were d/w Dr. Hutchison and arrangements made for admission. Requests that Dr. Pham be put on neuro consult. ~ Scribe Attestation: Documented by Juvencio Sanchez, acting as a scribe for Julio Cesar Ponce PA-C. Provider Scribe Attestation: All medical record entries made by the Scribe were at my direction and personally dictated by me. I have reviewed the chart and agree that the record accurately reflects my personal performance of the history, physical exam, medical decision making, and the department course for this patient. I have also personally directed, reviewed, and agree with the discharge instructions and disposition. Disposition - Clinical Impression Clinical Impression: Cerebral palsy, Head injury, Syncope, Frequent falls - Patient ED Disposition Is Patient to be Admitted: Yes - Disposition Disposition Time: 19:31 Condition: STABLE
--- NOTE | 2018-03-07 13:39 | CT ---
PROCEDURE: CT HEAD WITHOUT CONTRAST. HISTORY: Trauma COMPARISON: 07/17/2017. TECHNIQUE: Axial computed tomography images were obtained through the head/brain without intravenous contrast. Radiation dose: Total exam DLP = 846.53 mGy-cm. This CT exam was performed using one or more of the following dose reduction techniques: Automated exposure control, adjustment of the mA and/or kV according to patient size, and/or use of iterative reconstruction technique. FINDINGS: HEMORRHAGE: No intracranial hemorrhage. BRAIN: Pratt-white matter differentiation is preserved. There is no mass, mass effect or abnormal extra-axial fluid collection. There is no territorial infarction. VENTRICLES: The ventricles are normal in size, shape and configuration. CALVARIUM: There is no calvarial fracture or extracranial soft tissue swelling. PARANASAL SINUSES: There is mild scattered mucosal thickening in the left posterior ethmoid air cells. The remaining included paranasal sinuses are predominantly clear. MASTOID AIR CELLS: Predominantly clear. OTHER FINDINGS: None. IMPRESSION: No acute intracranial abnormality.
--- NOTE | 2018-03-07 13:48 | RAD ---
PROCEDURE: Radiographs of the Lumbar Spine. HISTORY: Fall COMPARISON: No prior. FINDINGS: BONES: There is no acute fracture. There is an apparent lucency in the pars articularis at L5 with grade 1 anterior listhesis of L5 on S1. There is degenerative 6 mm retrolisthesis of L3 on L4. DISC SPACES: There are multilevel degenerative changes with anterior osteophytes, reduced disc heights and multilevel facet arthropathy, worse at L3-4. OTHER FINDINGS: There are no pathologic soft tissue calcifications. Both sacroiliac joints are normal. IMPRESSION: 1. No acute fracture. 2. Spondylolysis at L5 with grade 1 anterior listhesis of L5 on S1. 3. Multilevel degenerative disc disease worse at L3-4 with 6 mm degenerative retrolisthesis of L3 on L4.
--- NOTE | 2018-03-07 13:50 | RAD ---
PROCEDURE: Left Hip X-ray Radiographs. HISTORY: Fall COMPARISON: None. FINDINGS: BONES: Bone alignment and mineralization are normal. There is no acute displaced fracture or bone destruction. JOINTS: The joint spaces are preserved. SOFT TISSUES: Normal. OTHER FINDINGS: There are multiple phleboliths in the pelvis. IMPRESSION: No acute displaced fracture or dislocation.Please note occult fractures cannot be excluded on plain radiographs. If there is a persistent clinical concern, an MRI of the hip may be performed for further evaluation.
--- NOTE | 2018-03-07 13:52 | RAD ---
HISTORY: clearance COMPARISON: 07/22/2017. FINDINGS: LUNGS: There are low lung volumes. There is bibasilar atelectasis. No focal consolidation. PLEURA: No significant pleural effusion identified, no pneumothorax apparent. CARDIOVASCULAR: Normal. OSSEOUS STRUCTURES: No significant abnormalities. VISUALIZED UPPER ABDOMEN: Normal. OTHER FINDINGS: None. IMPRESSION: No active pulmonary disease.
[2018-03-07] MEDS ORDERED: Lidocaine Hydrochloride 1% 10 ML ONE (15:27)
--- NOTE | 2018-03-07 15:44 | PCM.SURG1 ---
Surgeon's Initial Post Op Note - Surgeon's Notes Surgeon: Jefferson Negrete MD [employer] Buyer: NONE Type of Anesthesia: Local Pre-Operative Diagnosis: Poor venous access Operative Findings: US showed a patent right baslic vein Post-Operative Diagnosis: Poor venous access Operation Performed: Single lumen picc placement right arm, 33 cm. Tip is in the SVC. Specimen/Specimens Removed: none Estimated Blood Loss: EBL {In ML}: 2 Blood Products Given: N/A Drains Used: No Drains Post-Op Condition: Fair Date of Surgery/Procedure: 03/07/18 Time of Surgery/Procedure: 15:55
[2018-03-07 16:52] LABS: ALB/GLOB RATIO 1.2 (1.0-2.1); ALBUMIN 3.7 g/dL (3.5-5.0); ALT/SGPT 30 U/L (21-72); AST/SGOT 20 U/L (17-59); BLOOD UREA NITROGEN 14 mg/dl (9-20); CALCIUM 8.7 mg/dL (8.4-10.2); GFR AFRICAN-AMERICAN > 60; GFR NON-AFRICAN AMERICAN > 60
[2018-03-07 17:00] LABS: BARBITURATES, UR NEGATIVE (NEGATIVE); BENZODIAZEPINES, UR NEGATIVE (NEGATIVE); OPIATES, UR POSITIVE (NEGATIVE); PHENCYCLIDINE, UR NEGATIVE (NEGATIVE)
[2018-03-07 17:03] LABS: URINE BILIRUBIN NEGATIVE (NEGATIVE); URINE BLOOD NEGATIVE (NEGATIVE); URINE CLARITY CLEAR (Clear); URINE COLOR YELLOW (YELLOW); URINE GLUCOSE (UA) NEG (Normal); URINE HYALINE CAST 0-2 /hpf (0-2); URINE LEUKOCYTE ESTERASE NEG Leu/uL (Negative); URINE PROTEIN NEGATIVE (NEGATIVE); URINE UROBILINOGEN 0.2-1.0 mg/dL (0.2-1.0)
[2018-03-07] MEDS ORDERED: Tdap Vaccine 0.5 ml Vial (10-64 yrs) IM ONE (18:03)
[2018-03-07 18:47] LABS: BASO % 0.9 % (0.0-2.0); EOS # 0.1 K/uL (0.0-0.7); EOS % 2.9 % (0.0-4.0); HEMOGLOBIN 10.5 g/dL (12.0-18.0); LYMPH # 1.9 K/uL (1.0-4.3); MEAN CELL VOLUME 78.6 fl (80.0-94.0); MEAN CORPUSCULAR HEMOGLOBIN 25.2 pg (27.0-31.0); MEAN PLATELET VOLUME 7.5 fl (7.2-11.7); MONO # 0.3 K/uL (0.0-0.8); MONO % 5.5 % (0.0-10.0); NEUT # 2.3 K/uL (1.8-7.0); NEUT % 49.7 % (50.0-75.0); RBC 4.19 Mil/uL (4.40-5.90); RED CELL DISTRIBUTION WIDTH 16.8 % (11.5-14.5); WHITE BLOOD COUNT 4.7 K/uL (4.8-10.8)
--- NOTE | 2018-03-07 20:37 | CP.PCM.PN ---
Subjective - Date & Time of Evaluation Date of Evaluation: 03/07/18 Time of Evaluation: 22:22 - Subjective Subjective: 57 yo with hx of cerebral palsy seizure disorder presented to ER for recurrent falls, unsteady gait and syncope Objective - Vital Signs/Intake and Output Vital Signs (last 24 hours): Temp Pulse Resp BP Pulse Ox 97.6 F 75 18 120/75 98 03/07/18 16:05 03/07/18 16:05 03/07/18 16:05 03/07/18 16:05 03/07/18 19:32 - Labs Labs: 03/07/18 18:00 03/07/18 16:35 - Respiratory Exam Respiratory Exam: NORMAL BREATHING PATTERN - Cardiovascular Exam Cardiovascular Exam: REGULAR RHYTHM - GI/Abdominal Exam GI & Abdominal Exam: Normal Bowel Sounds Assessment and Plan - Assessment and Plan (Free Text) Assessment: Recurrent falls, unsteady gait and syncope hx of cerebral palsy and seizure disorder W/U ordered Hx of drug addiction dependence (Not intravemous)
[2018-03-08] MEDS: Enoxaparin 40 mg Syringe SC SCH (08:24)
--- NOTE | 2018-03-08 08:48 | CARD ---
APPROVED REPORT EKG Measurement Heart [id number] <Conclusion> Normal sinus rhythm Minimal voltage criteria for LVH, may be normal variant Borderline ECG
[2018-03-08] MEDS ORDERED: Enoxaparin 30 mg Syringe SC SCH (09:00)
--- NOTE | 2018-03-08 09:02 | CARD ---
APPROVED REPORT EKG Measurement Heart [id number] <Conclusion> Normal sinus rhythm Normal ECG
--- NOTE | 2018-03-08 15:10 | CP.PCM.CON ---
History of Present Illness - History of Present Illness History of Present Illness: 57 yr old male who has a history of frequent falls, who says that he has great trouble with his left leg, with frequent falls. THere is no history of trauma, headache, or stroke. Prior MRI Brain is normal, and MRI l/s spine shows severe L5/S1 stenosis with nerve impingment. PMH/PSH: as abov FH/SH: ALl: Past Patient History - Infectious Disease Hx of Infectious Diseases: None - Past Medical History & Family History Past Medical History?: Yes - Past Social History Smoking Status: Never Smoked - CARDIAC Hx Hypertension: No (Patient denied) - PULMONARY Hx Respiratory Disorders: Yes - NEUROLOGICAL Hx Neurological Disorder: Yes - HEENT Hx HEENT Problems: No - RENAL Hx Chronic Kidney Disease: Yes - ENDOCRINE/METABOLIC Hx Endocrine Disorders: No - HEMATOLOGICAL/ONCOLOGICAL Hx AIDS: No Hx Blood Transfusions: No Hx Human Immunodeficiency Virus (HIV): No (Patient denied) - INTEGUMENTARY Hx Dermatological Problems: No - MUSCULOSKELETAL/RHEUMATOLOGICAL Hx Musculoskeletal Disorders: Yes - GASTROINTESTINAL Hx Gastroesophageal Reflux: Yes - GENITOURINARY/GYNECOLOGICAL Hx Sexually Transmitted Disorders: No (Patient denied) - PSYCHIATRIC Hx Anxiety: Yes Hx Emotional Abuse: No Hx Physical Abuse: No Hx Substance Use: Yes (Heroin) - SURGICAL HISTORY Hx Appendectomy: Yes Hx Tonsillectomy: Yes Other/Comment: Noreen Sx - ANESTHESIA Hx Anesthesia: Yes Hx Anesthesia Reactions: No Hx Malignant Hyperthermia: No Meds Allergies/Adverse Reactions: Allergies Allergy/AdvReac Type Severity Reaction Status Date / Time Hay Fever Allergy CONGESTION Uncoded 03/12/18 20:45 - Medications Medications: Current Medications Alprazolam (Xanax) 1 mg PO TID [facility] Last Admin: 03/08/18 12:01 Dose: Not Given Enoxaparin Sodium (Lovenox) 40 mg SC DAILY [facility] PRN Reason: Protocol Last Admin: 03/08/18 08:24 Dose: 40 mg Gabapentin (Neurontin) 300 mg PO TID [facility] Last Admin: 03/08/18 12:01 Dose: 300 mg Phenytoin Sodium (Dilantin) 100 mg PO TID [facility] Last Admin: 03/08/18 12:00 Dose: 100 mg Results - Vital Signs Recent Vital Signs: Last Vital Signs Temp 98.5 F 03/08/18 11:56 Pulse 84 03/08/18 11:56 Resp 18 04/19/18 11:56 BP 103/66 03/08/18 11:56 Pulse Ox 98 03/08/18 11:56 - Labs Result Diagrams: 03/07/18 18:00 03/07/18 16:35 Labs: Laboratory Results - last 24 hr 03/07/18 03/07/18 03/07/18 16:35 16:35 16:35 WBC RBC Hgb Hct MCV MCH MCHC RDW Plt Count MPV Neut % (Auto) Lymph % (Auto) [place] % (Auto) Eos % (Auto) Baso % (Auto) Neut # (Auto) Lymph # (Auto) [place] # (Auto) Eos # (Auto) Baso # (Auto) Sodium 138 Potassium 4.2 Chloride 101 Carbon Dioxide 27 Anion Gap 14 BUN 14 Creatinine 0.5 L Est GFR ( Amer) > 60 Est GFR (Non-Af Amer) > 60 Random Glucose 86 Calcium 8.7 Total Bilirubin 0.6 AST 20 ALT 30 Alkaline Phosphatase 66 Total Creatine Kinase 87 Troponin I Total Protein 6.8 Albumin 3.7 Globulin 3.1 Albumin/Globulin Ratio 1.2 Urine Color Yellow Urine Clarity Clear Urine pH 6.0 Ur Specific [place] 1.026 Urine Protein Negative Urine Glucose (UA) Neg Urine Ketones Negative Urine Blood Negative Urine Nitrate Negative Urine Bilirubin Negative Urine Urobilinogen 0.2-1.0 Ur Leukocyte Esterase Neg Urine RBC (Auto) 2 Urine Microscopic WBC < 1 Hyaline Casts 0-2 Urine Opiates Screen Urine Methadone Screen Ur Barbiturates Screen Phenytoin < 3.0 L Ur Phencyclidine Scrn Ur Amphetamines Screen U Benzodiazepines Scrn U Oth Cocaine Metabols U Cannabinoids Screen Alcohol, Quantitative < 10 03/07/18 03/07/18 03/08/18 16:35 18:00 05:35 WBC 4.7 L RBC 4.19 L Hgb 10.5 L Hct 32.9 L MCV 78.6 L D MCH 25.2 L MCHC 32.0 L RDW 16.8 H Plt Count 220 MPV 7.5 Neut % (Auto) 49.7 L Lymph % (Auto) 41.0 H [place] % (Auto) 5.5 Eos % (Auto) 2.9 Baso % (Auto) 0.9 Neut # (Auto) 2.3 Lymph # (Auto) 1.9 [place] # (Auto) 0.3 Eos # (Auto) 0.1 Baso # (Auto) 0.0 Sodium Potassium Chloride Carbon Dioxide Anion Gap BUN Creatinine Est GFR ( Amer) Est GFR (Non-Af Amer) Random Glucose Calcium Total Bilirubin AST ALT Alkaline Phosphatase Total Creatine Kinase Troponin I < 0.0120 Total Protein Albumin Globulin Albumin/Globulin Ratio Urine Color Urine Clarity Urine pH Ur Specific [place] Urine Protein Urine Glucose (UA) Urine Ketones Urine Blood Urine Nitrate Urine Bilirubin Urine Urobilinogen Ur Leukocyte Esterase Urine RBC (Auto) Urine Microscopic WBC Hyaline Casts Urine Opiates Screen Positive H Urine Methadone Screen Positive H Ur Barbiturates Screen Negative Phenytoin Ur Phencyclidine Scrn Negative Ur Amphetamines Screen Negative U Benzodiazepines Scrn Negative U Oth Cocaine Metabols Negative U Cannabinoids Screen Negative Alcohol, Quantitative
--- NOTE | 2018-03-08 20:54 | CP.PCM.PN ---
Subjective - Date & Time of Evaluation Date of Evaluation: 03/08/18 Time of Evaluation: 22:22 - Subjective Subjective: Above noted Objective - Vital Signs/Intake and Output Vital Signs (last 24 hours): Temp Pulse Resp BP Pulse Ox 97.4 F L 79 18 111/69 96 03/08/18 20:46 03/08/18 20:46 03/08/18 20:46 03/08/18 20:46 03/08/18 20:46 - Medications Medications: Current Medications Alprazolam (Xanax) 1 mg PO TID PRN PRN Reason: Anxiety Enoxaparin Sodium (Lovenox) 40 mg SC DAILY [facility] PRN Reason: Protocol Last Admin: 03/08/18 08:24 Dose: 40 mg Gabapentin (Neurontin) 300 mg PO TID [facility] Last Admin: 03/08/18 16:11 Dose: 300 mg Phenytoin Sodium (Dilantin) 100 mg PO TID [facility] Last Admin: 03/08/18 16:11 Dose: 100 mg - Labs Labs: 03/07/18 18:00 03/07/18 16:35 - Respiratory Exam Respiratory Exam: NORMAL BREATHING PATTERN - Cardiovascular Exam Cardiovascular Exam: REGULAR RHYTHM - GI/Abdominal Exam GI & Abdominal Exam: Normal Bowel Sounds Assessment and Plan - Assessment and Plan (Free Text) Assessment: Recurrent falls, unsteady gait and syncope hx of cerebral palsy and seizure disorder W/U ordered Hx of drug addiction dependence (Not intravemous)
[2018-03-09] MEDS: Enoxaparin 40 mg Syringe SC SCH (09:06)
--- NOTE | 2018-03-09 10:06 | CP.PCM.CON ---
History of Present Illness - History of Present Illness History of Present Illness: Psychiatry consult note CC: Opioid abuse HPI: 57 years old male with hx of noncompliance with medication, Cerebral Palsy , Seizure and multiple admissions for Cocaine and Heroin Overdose, now presents w/ frequent falls s/p using 11 bags of heroin (snorts) daily. He reports current opioid withdrawal symptoms. He denies ideation to harm himself and denies suicide attempt prior to admission. Patient counseled on the dangers of substance abuse. He does not want psychiatric admission at this time. Patient denies taking antidepressants prior to admission and is not interested in tx with psychotropic medications at this time. NO depression/anxiety/AH/VH/SI /HI/paranoia/delusions. PMH: Nephrolithiasis; Seizure; Cerebral palsy; GERD; Asthma; Spinal stenosis; Non-compliacec with medications PSH: Appendectomy; Tonsillectomy SH: Live with Family; Former Smoker; Substance abuse with Heroin, Cocaine, uses walker and cane to ambulate Allergies: NKDA Impression: 57 yo male w/ history of noncompliance with medications, Cerebral Palsy, Seizure and multiple admissions for Cocaine and Heroin Overdose, brought to the ED s/p multiple falls. Patent's primary diagnosis is polysubstance dependence. Patient denies suicide attempt or current suicidal ideation. Patient does not need acute inpatient psychiatric admission at this time. -Treat opioid w/drawal symptoms: Clonidine 0.1 mg Q8 hr x 3 days, Imodium PRN, Mylanta PRN, Flexeril PRN, Motrin PRN, Ativan PRN for angitation -No acute inpatient psychiatric admission indicated at this time -Psychoeducation re: substance abuse and non-compliance w/ treatment Past Patient History - Infectious Disease Hx of Infectious Diseases: None - Past Medical History & Family History Past Medical History?: Yes - Past Social History Smoking Status: Never Smoked - CARDIAC Hx Hypertension: No (Patient denied) - PULMONARY Hx Respiratory Disorders: Yes - NEUROLOGICAL Hx Neurological Disorder: Yes - HEENT Hx HEENT Problems: No - RENAL Hx Chronic Kidney Disease: Yes - ENDOCRINE/METABOLIC Hx Endocrine Disorders: No - HEMATOLOGICAL/ONCOLOGICAL Hx AIDS: No Hx Blood Transfusions: No Hx Human Immunodeficiency Virus (HIV): No (Patient denied) - INTEGUMENTARY Hx Dermatological Problems: No - MUSCULOSKELETAL/RHEUMATOLOGICAL Hx Musculoskeletal Disorders: Yes - GASTROINTESTINAL Hx Gastroesophageal Reflux: Yes - GENITOURINARY/GYNECOLOGICAL Hx Sexually Transmitted Disorders: No (Patient denied) - PSYCHIATRIC Hx Anxiety: Yes Hx Emotional Abuse: No Hx Physical Abuse: No Hx Substance Use: Yes (Heroin) - SURGICAL HISTORY Hx Appendectomy: Yes Hx Tonsillectomy: Yes Other/Comment: Noreen Sx - ANESTHESIA Hx Anesthesia: Yes Hx Anesthesia Reactions: No Hx Malignant Hyperthermia: No Meds Allergies/Adverse Reactions: Allergies Allergy/AdvReac Type Severity Reaction Status Date / Time Hay Fever Allergy CONGESTION Uncoded 03/08/18 01:21 - Medications Medications: Current Medications Alprazolam (Xanax) 1 mg PO TID PRN PRN Reason: Anxiety Last Admin: 03/09/18 06:08 Dose: 1 mg Enoxaparin Sodium (Lovenox) 40 mg SC DAILY [facility] PRN Reason: Protocol Last Admin: 03/09/18 09:06 Dose: 40 mg Gabapentin (Neurontin) 300 mg PO TID [facility] Last Admin: 03/09/18 09:06 Dose: 300 mg Phenytoin Sodium (Dilantin) 100 mg PO TID [facility] Last Admin: 03/09/18 09:06 Dose: 100 mg Results - Vital Signs Recent Vital Signs: Last Vital Signs Temp 98.0 F 03/09/18 07:47 Pulse 92 H 03/09/18 07:47 Resp 18 03/09/18 07:47 BP 123/76 03/09/18 07:47 Pulse Ox 99 03/09/18 07:47 - Labs Result Diagrams: 03/07/18 18:00 03/07/18 16:35
--- NOTE | 2018-03-09 11:25 | CP.PCM.PCO ---
Assessment & Plan - Assessment and Plan (Free Text) Assessment: pt. seen by , as per recommendations/ pt. with acute on chronic LBP 2nd LS stenosis, pt. may follow up with neurosurgery outpatient pt . cleared for discharge to Home today by - f/u in office 1-2 weeks notified
[2018-03-09] MEDS ORDERED: Alum-Mag Hydrox-Simethicone Susp (30 mL) PO PRN (12:06)
--- NOTE | 2018-03-09 14:45 | PQF GENQUE ---
Dr. Hadley, Etiology of Syncope: if known OR: Unable to determine H and P:absent ER: Clinical Imp: Cerebral palsy, Head injury, Syncope, Frequent falls Attending progress note: Assessment: Recurrent falls, unsteady gait and syncope hx of cerebral palsy and seizure disorder W/U ordered Hx of drug addiction dependence (Not intravemous) 03/09Psych consult: hx of noncompliance with medication, Cerebral Palsy, Seizure and multiple admissions for Cocaine and Heroin Overdose, now presents w/ frequent falls s/p using 11 bags of heroin (snorts) daily. He reports current opioid withdrawal symptoms. Patent' s primary diagnosis is polysubstance dependence; Patient denies suicide attempt or current suicidal ideation. -Treat opioid w/drawal symptoms: Clonidine 0.1 mg Q8 hr x 3 days, Imodium PRN, Mylanta PRN, Flexeril PRN, Motrin PRN, Ativan PRN for angitation 03/09 Physician Communication [employer] note; as per recommendations/ pt. with acute on chronic LBP 2nd LS stenosis, pt. may follow up with neurosurgery outpatient This form is a permanent part of the medical record Clarification of your documentation is requested to better reflect the severity of illness and intensity of treatment of your patient. Indicators present [] Specify: [] [] Specify: [] [] Specify: [] [] Specify: [] Location in the medical record that reflects the above clinical findings: [] Treatment Provided: [] PHYSICIAN'S RESPONSE Based on your medical judgment of the clinical indicators outlined above please clarify the following: [] Practitioner response [] If unable to determine, please check the box, sign and date. Present On Admission (POA) Indicator: [] Present at the time of admission [] Not present at the time of admission [] Clinically Undetermined In responding to this query, please exercise your independent professional judgment. The fact that a question is asked does not imply that any particular answer is desired or expected. Thank you for your clarification on this documentation. If you have any questions please call. * Thank you, Miriam Dawn RN ext. #[phone] MTDD
--- NOTE | 2018-03-09 19:53 | CP.PCM.PN ---
Subjective - Date & Time of Evaluation Date of Evaluation: 03/09/18 Time of Evaluation: 22:22 - Subjective Subjective: Above noted Pt wants to stop opiods Lethargic and withdrawal sx Objective - Vital Signs/Intake and Output Vital Signs (last 24 hours): Temp Pulse Resp BP Pulse Ox 99.1 F 116 H 20 102/71 96 03/09/18 19:26 03/09/18 19:26 03/09/18 19:26 03/09/18 19:26 03/09/18 19:26 - Medications Medications: Current Medications Al Hydrox/Mg Hydrox/Simethicone (Maalox Plus 30 Ml) 30 ml PO Q6 PRN PRN Reason: Indigestion / Heartburn Clonidine HCl (Catapres) 0.1 mg PO Q8 [facility] Stop: 03/12/18 09:00 Last Admin: 03/09/18 17:42 Dose: 0.1 mg Enoxaparin Sodium (Lovenox) 40 mg SC DAILY [facility] PRN Reason: Protocol Last Admin: 03/09/18 09:06 Dose: 40 mg Gabapentin (Neurontin) 300 mg PO TID [facility] Last Admin: 03/09/18 17:41 Dose: 300 mg Ibuprofen (Motrin Tab) 400 mg PO Q6 PRN PRN Reason: Pain, moderate (4-7) Loperamide HCl (Imodium) 2 mg PO QID PRN PRN Reason: Diarrhea Last Admin: 03/09/18 13:01 Dose: 2 mg Lorazepam (Ativan) 1 mg PO Q8 PRN PRN Reason: Anxiety Last Admin: 03/09/18 13:05 Dose: 1 mg Ondansetron HCl (Zofran Tab) 4 mg PO Q6 PRN PRN Reason: Nausea/Vomiting Phenytoin Sodium (Dilantin) 100 mg PO TID [facility] Last Admin: 03/09/18 17:41 Dose: 100 mg - Labs Labs: 03/07/18 18:00 03/07/18 16:35 - Respiratory Exam Respiratory Exam: NORMAL BREATHING PATTERN - Cardiovascular Exam Cardiovascular Exam: REGULAR RHYTHM - GI/Abdominal Exam GI & Abdominal Exam: Normal Bowel Sounds Assessment and Plan - Assessment and Plan (Free Text) Assessment: Drug withdrawal lethargy tachycardia Hx of drug addiction heroin methadone (cocaine Hx) (Not intravemous) Clonidine Monitor closely As per psychiatry Recurrent falls, unsteady gait and syncope hx of cerebral palsy and seizure disorder W/U ordered
--- NOTE | 2018-03-10 06:59 | CP.PCM.PN ---
Subjective - Date & Time of Evaluation Date of Evaluation: 03/10/18 Time of Evaluation: 22:22 - Subjective Subjective: HR improved from 116 to94 Objective - Vital Signs/Intake and Output Vital Signs (last 24 hours): Temp Pulse Resp BP Pulse Ox 97.9 F 80 18 103/69 95 03/10/18 05:04 03/10/18 05:04 03/10/18 05:04 03/10/18 05:04 03/10/18 05:04 - Medications Medications: Current Medications Al Hydrox/Mg Hydrox/Simethicone (Maalox Plus 30 Ml) 30 ml PO Q6 PRN PRN Reason: Indigestion / Heartburn Clonidine HCl (Catapres) 0.1 mg PO Q8 [facility] Stop: 03/12/18 09:00 Last Admin: 03/10/18 00:55 Dose: 0.1 mg Enoxaparin Sodium (Lovenox) 40 mg SC DAILY [facility] PRN Reason: Protocol Last Admin: 03/09/18 09:06 Dose: 40 mg Gabapentin (Neurontin) 300 mg PO TID [facility] Last Admin: 03/09/18 17:41 Dose: 300 mg Ibuprofen (Motrin Tab) 400 mg PO Q6 PRN PRN Reason: Pain, moderate (4-7) Loperamide HCl (Imodium) 2 mg PO QID PRN PRN Reason: Diarrhea Last Admin: 03/09/18 13:01 Dose: 2 mg Lorazepam (Ativan) 1 mg PO Q8 PRN PRN Reason: Anxiety Last Admin: 03/09/18 13:05 Dose: 1 mg Ondansetron HCl (Zofran Tab) 4 mg PO Q6 PRN PRN Reason: Nausea/Vomiting Phenytoin Sodium (Dilantin) 100 mg PO TID [facility] Last Admin: 03/09/18 17:41 Dose: 100 mg - Labs Labs: 03/07/18 18:00 03/07/18 16:35 - Respiratory Exam Respiratory Exam: NORMAL BREATHING PATTERN - Cardiovascular Exam Cardiovascular Exam: REGULAR RHYTHM - GI/Abdominal Exam GI & Abdominal Exam: Normal Bowel Sounds Assessment and Plan - Assessment and Plan (Free Text) Assessment: Drug withdrawal lethargy tachycardia Hx of drug addiction heroin methadone (cocaine Hx) (Not intravemous) Clonidine Monitor closely As per psychiatry Recurrent falls, unsteady gait and syncope hx of cerebral palsy and seizure disorder W/U ordered
[2018-03-10] MEDS: Enoxaparin 40 mg Syringe SC SCH (09:18)
[2018-03-11] MEDS: Enoxaparin 40 mg Syringe SC SCH (08:41)
--- NOTE | 2018-03-11 09:33 | CP.PCM.PN ---
Subjective - Date & Time of Evaluation Date of Evaluation: 03/11/18 Time of Evaluation: 09:32 - Subjective Subjective: Mr. Pulliam was seen and examined at the bedside. He is alert, oriented . He denies any headache, dizziness, but claims of having bilateral lower extremities weakness. He is able to follow simple commands. He claims of having poor PO intake. X- ray of the lumbar showed spondylolysis at the L5-S1 with grade 1 anterior lithesis of L5 and S1 Multiplelevel degenerative disc disease worse at the L3-4 with 6 mm degenerative retrolisthesis of L3 and L5.There was no untoward events overnight. Objective - Vital Signs/Intake and Output Vital Signs (last 24 hours): Temp Pulse Resp BP Pulse Ox 97.5 F L 71 18 106/71 97 03/11/18 08:10 03/11/18 08:49 03/11/18 08:10 03/11/18 08:49 03/11/18 08:10 - Medications Medications: Current Medications Al Hydrox/Mg Hydrox/Simethicone (Maalox Plus 30 Ml) 30 ml PO Q6 PRN PRN Reason: Indigestion / Heartburn Clonidine HCl (Catapres) 0.1 mg PO Q8 [facility] Stop: 03/12/18 09:00 Last Admin: 03/11/18 08:49 Dose: 0.1 mg Gabapentin (Neurontin) 300 mg PO TID [facility] Last Admin: 03/11/18 08:42 Dose: 300 mg Ibuprofen (Motrin Tab) 400 mg PO Q6 PRN PRN Reason: Pain, moderate (4-7) Loperamide HCl (Imodium) 2 mg PO QID PRN PRN Reason: Diarrhea Last Admin: 03/11/18 08:43 Dose: 2 mg Lorazepam (Ativan) 1 mg PO Q8 PRN PRN Reason: Anxiety Last Admin: 03/09/18 13:05 Dose: 1 mg Ondansetron HCl (Zofran Tab) 4 mg PO Q6 PRN PRN Reason: Nausea/Vomiting Last Admin: 03/10/18 19:50 Dose: 4 mg Phenytoin Sodium (Dilantin) 100 mg PO TID [facility] Last Admin: 03/11/18 08:41 Dose: 100 mg - Labs Labs: 03/07/18 18:00 03/07/18 16:35 - Constitutional Appears: No Acute Distress - Head Exam Head Exam: NORMAL INSPECTION - Neurological Exam Neurological Exam: Alert, Awake, Oriented x3 Neuro motor strength exam: Left Upper Extremity: 4, Right Upper Extremity: 4, Left Lower Extremity: 3, Right Lower Extremity: 3 Additional comments: He is alert, able to follow simple commands with weakness noted of the lower extremities. Assessment and Plan (1) Unsteady gait Assessment & Plan: Case discussed with Dr. Oshea, continue all current medical regimen. Recommend neurosurgery consult for the lumbar degenerative retrolisthesis of 6 mm. Status: Acute
--- NOTE | 2018-03-11 19:23 | CP.PCM.PN ---
Subjective - Date & Time of Evaluation Date of Evaluation: 03/11/18 Time of Evaluation: :22 - Subjective Subjective: Improved Wants rehab HR improved Objective - Vital Signs/Intake and Output Vital Signs (last 24 hours): Temp Pulse Resp BP Pulse Ox 98.4 F 78 20 103/64 98 03/11/18 19:15 03/11/18 19:15 03/11/18 19:15 03/11/18 19:15 03/11/18 19:15 - Medications Medications: Current Medications Al Hydrox/Mg Hydrox/Simethicone (Maalox Plus 30 Ml) 30 ml PO Q6 PRN PRN Reason: Indigestion / Heartburn Clonidine HCl (Catapres) 0.1 mg PO Q8 [facility] Stop: 03/12/18 09:00 Last Admin: 03/11/18 18:02 Dose: 0.1 mg Gabapentin (Neurontin) 300 mg PO TID [facility] Last Admin: 03/11/18 18:03 Dose: 300 mg Ibuprofen (Motrin Tab) 400 mg PO Q6 PRN PRN Reason: Pain, moderate (4-7) Last Admin: 03/11/18 18:05 Dose: 400 mg Loperamide HCl (Imodium) 2 mg PO QID PRN PRN Reason: Diarrhea Last Admin: 03/11/18 08:43 Dose: 2 mg Lorazepam (Ativan) 1 mg PO Q8 PRN PRN Reason: Anxiety Last Admin: 03/09/18 13:05 Dose: 1 mg Ondansetron HCl (Zofran Tab) 4 mg PO Q6 PRN PRN Reason: Nausea/Vomiting Last Admin: 03/11/18 14:03 Dose: 4 mg Phenytoin Sodium (Dilantin) 100 mg PO TID [facility] Last Admin: 03/11/18 18:02 Dose: 100 mg - Labs Labs: 03/07/18 18:00 03/07/18 16:35 - Respiratory Exam Respiratory Exam: NORMAL BREATHING PATTERN - Cardiovascular Exam Cardiovascular Exam: REGULAR RHYTHM - GI/Abdominal Exam GI & Abdominal Exam: Normal Bowel Sounds Assessment and Plan - Assessment and Plan (Free Text) Assessment: Drug withdrawal Dec lethargy tachycardia Hx of drug addiction heroin methadone (cocaine Hx) (Not intravemous) Clonidine Monitor closely As per psychiatry Recurrent falls, unsteady gait and syncope hx of cerebral palsy and seizure disorder Rehab
[2018-03-12 00:09] VITALS: RESP 18
[2018-03-12 12:07] VITALS: BP 122/76; PULSE 90; TEMP 98.2; O2SAT 96
--- NOTE | 2018-03-12 20:12 | CP.PCM.PN ---
Subjective - Date & Time of Evaluation Date of Evaluation: 03/12/18 Time of Evaluation: 22:22 - Subjective Subjective: Improved Rehab refusing pt ?? Objective - Vital Signs/Intake and Output Vital Signs (last 24 hours): Temp Pulse Resp BP Pulse Ox 98.2 F 90 18 122/76 96 03/12/18 12:00 03/12/18 12:00 03/12/18 12:00 03/12/18 12:00 03/12/18 12:00 - Labs Labs: 03/07/18 18:00 03/07/18 16:35 - Respiratory Exam Respiratory Exam: NORMAL BREATHING PATTERN - Cardiovascular Exam Cardiovascular Exam: REGULAR RHYTHM - GI/Abdominal Exam GI & Abdominal Exam: Normal Bowel Sounds Assessment and Plan - Assessment and Plan (Free Text) Assessment: Drug withdrawal Hx of drug addiction heroin methadone (cocaine Hx) (Not intravemous) Clonidine As per psychiatry Recurrent falls, unsteady gait and syncope hx of cerebral palsy and seizure disorder Rehab denied pt Anemia?? w/u as outpt
--- NOTE | 2018-03-16 10:34 | VASCULAR ---
PROCEDURE: Date of procedure: 03/07/2018 Procedure: 1. Placement of a right arm PICC with ultrasound and fluoroscopic guidance, CPT 58711 2. PICC tip confirmation with spot radiograph and is in the superior vena cava Medications: 1 percent lidocaine Total Fluoro time: 4 seconds Radiation: 2 mGy EBL: 2 cc HISTORY: Poor venous access TECHNIQUE: Following informed consent and procedure time-out, the patient was placed supine on the interventional table and the right arm prepped and draped in the usual sterile fashion. Ultrasound showed a patent and compressible right basilic vein. After the skin was anesthetized with lidocaine, the basilic vein was accessed with micro micropuncture technique using ultrasound guidance. A guidewire was then advanced under fluoroscopic guidance into the superior vena cava. An image documenting ultrasound guidance for vascular access was permanently saved. The length of the single-lumen 4 [place] PICC was trimmed to 33 centimeters and advanced through a peel-away sheath. The PICC was position with tip of PICC confirm a spot radiograph the superior vena cava. The PICC was secured to the patient's skin. The PICC was flushed. A biopatch and sterile dressing was applied. IMPRESSION: Placement of a single-lumen 4 [place] PICC trimmed to 33 centimeters via right basilic vein. The tip of the PICC is confirmed with spot radiograph and is in the superior vena cava.
--- NOTE | 2018-03-21 10:04 | HP ---
History of Present Illness - History of Present Illness History of Present Illness: Chief Complaint: falls, unsteady gait and syncope 57 year old male with history of cerebral palsy seizure disorder. Patient was brought to the emergency department via EMS. Presented to ED for recurrent falls , unsteady gait and syncope. Patient reports falling x3 times yesterday due to tripping. This morning right leg became weak, causing him to fall down and hit his head on the floor and lost consciousness. Present on Admission - Present on Admission Any Indicators Present on Admission: No Past Patient History - Medical History PMH: Asthma, Bronchitis, Kidney Stones, Chronic Kidney Disease, Seizures Denies: Diabetes (Patient denied), Hepatitis (Patient denied), HIV (Patient denied), HTN (Patient denied), Sexually Transmitted Disease (Patient denied) Other PMH: Cerebral Palsy - Surgical History Surgical History: Appendectomy, Tonsillectomy - Family History Family History: States: No Known Family Hx - Immunization History Hx Tetanus Toxoid Vaccination: Yes (a few months ago) - Home Medications Home Medications: Ambulatory Orders Medication Instructions Recorded Alprazolam [Xanax] 2 mg PO Q12 03/07/18 Gabapentin [Neurontin] 300 mg PO Q6 03/07/18 Phenytoin, Extended [Dilantin] 100 mg PO Q6 03/07/18 - Allergies Allergies/Adverse Reactions: Allergies Allergy/AdvReac Type Severity Reaction Status Date / Time No Known Allergies Allergy Verified 11/20/17 18:18 Review of Systems ROS Statement: Except As Marked, All Systems Reviewed And Found Negative Cardiovascular: Negative for: Chest Pain Respiratory: Negative for: Shortness of Breath Gastrointestinal: Negative for: Abdominal Pain Musculoskeletal: Positive for: Other (left hip pain). Negative for: Neck Pain, Shoulder Pain, Arm Pain, Hand Pain Neurological: Positive for: Weakness (right leg weakness), Headache. Negative for: Numbness Physical Exam - Physical Exam Appears: Positive for: Non-toxic, No Acute Distress Head Exam: Positive for: ATRAUMATIC, NORMAL INSPECTION, NORMOCEPHALIC Skin: Positive for: Normal Color, Warm, Dry Eye Exam: Positive for: Normal appearance, EOMI, PERRL ENT: Positive for: Normal ENT Inspection (Poor dentition) Neck: Positive for: Painless ROM, Supple Cardiovascular/Chest: Positive for: Regular Rate, Rhythm, Chest Non Tender. Negative for: Murmur Respiratory: Positive for: Normal Breath Sounds. Negative for: Respiratory Distress Gastrointestinal/Abdominal: Positive for: Normal Exam, Soft. Negative for: Tenderness Back: Positive for: Normal Inspection. Negative for: L CVA Tenderness, R CVA Tenderness, Vertebral Tenderness Extremity: Positive for: Normal ROM (hip Full ROM actively), Tenderness (left hip ), Other (upper extremity contractures). Negative for: Deformity (left hip) , Swelling (left hip) Neurologic/Psych: Positive for: Alert, Oriented (x3). Negative for: Motor/ Sensory Deficits - Vital Signs/Intake and Output Vital Signs (last 24 hours): Temp Pulse Resp BP Pulse Ox 97.6 F 75 18 120/75 98 03/07/18 16:05 03/07/18 16:05 03/07/18 16:05 03/07/18 16: 03/07/18 19:32 - Labs Labs: 03/07/2018 18:00 4.7L 10.5L 220 32.9L 03/07/2018 16:35 138 101 14 86 4.2 27 0.5L Assessment and Plan - Assessment and Plan (Free Text) Assessment: Recurrent falls, unsteady gait and syncope hx of cerebral palsy and seizure disorder W/U ordered Hx of drug addiction dependence (Not intravemous) Plan: Admit to Inpatient Telemetry MTDD
== END 2018-03-12 14:22 | disposition home or self-care (01) | DRG 92 ==
LOC: H.ER 12:04 → H.ERHOLD 19:21 → H.TEL 21:51
PROVIDERS: ADMIT Family Medicine Geriatric Medicine; ATTEND Family Medicine Geriatric Medicine
PROC: 02HV33Z Insertion of Infusion Device into Superior Vena Cava, Percutaneous Approach (ICD-10-PCS; principal; 2018-03-07)
PROC: B518ZZA Fluoroscopy of Superior Vena Cava, Guidance (ICD-10-PCS; 2018-03-07)
PROC: B548ZZA Ultrasonography of Superior Vena Cava, Guidance (ICD-10-PCS; 2018-03-07)
DX: R29.6 Repeated falls (principal); S06.9X1A Unspecified intracranial injury with loss of consciousness of 30 minutes or less, initial encounter; F11.23 Opioid dependence with withdrawal; W01.0XXA Fall on same level from slipping, tripping and stumbling without subsequent striking against object, initial encounter; Y93.9 Activity, unspecified; Y92.9 Unspecified place or not applicable; J45.909 Unspecified asthma, uncomplicated; Z87.442 Personal history of urinary calculi; Z87.891 Personal history of nicotine dependence; Z90.49 Acquired absence of other specified parts of digestive tract; Z91.14 Patient's other noncompliance with medication regimen; Z91.19 Patient's noncompliance with other medical treatment and regimen; Z91.81 History of falling; F14.10 Cocaine abuse, uncomplicated; F41.9 Anxiety disorder, unspecified; M48.061 Spinal stenosis, lumbar region without neurogenic claudication; Z79.899 Other long term (current) drug therapy; G89.29 Other chronic pain; M48.07 Spinal stenosis, lumbosacral region; M54.5 Low back pain; R26.81 Unsteadiness on feet; R55 Syncope and collapse; G40.909 Epilepsy, unspecified, not intractable, without status epilepticus; G80.9 Cerebral palsy, unspecified; K21.9 Gastro-esophageal reflux disease without esophagitis; M43.00 Spondylolysis, site unspecified; M51.36 Other intervertebral disc degeneration, lumbar region; N18.9 Chronic kidney disease, unspecified

== ENCOUNTER 2018-07-05 08:26 | Emergency (ER) | payer MEDICARE ==
[2018-07-05 08:26] VITALS: BMI 23.1
[2018-07-05 08:34] VITALS: O2SAT 99
[2018-07-05] MEDS ORDERED: Iohexol 240 (50 ml) PO ONE (08:55)
[2018-07-05] MEDS ORDERED: Sodium Chloride 0.9% 1,000 ML IV STA (08:55)
--- NOTE | 2018-07-05 08:59 | ED PDOC ---
HPI: Abdomen Time Seen by Provider: 07/05/18 08:34 Chief Complaint (Nursing): Lower Extremity Problem/Injury Chief Complaint (Provider): Abd pain History Per: Patient History/Exam Limitations: no limitations Onset/Duration Of Symptoms: Days (yesterday ) Additional History Per: Patient Additional Complaint(s): Pt. with abd pain right lower since yesterday. Also with nausea, vomit, diarrhea, nonbloody. Pain goes into the right hip. No fall or injury. No back pain, numbness, tingles. No new food or drinks. Past Medical History Reviewed: Nursing Documentation, Vital Signs Vital Signs: Last Vital Signs Temp 98 F 07/05/18 14:27 Pulse 67 07/05/18 14:27 Resp 18 07/05/18 14:27 BP 143/90 07/05/18 14:27 Pulse Ox 99 07/05/18 14:27 - Medical History PMH: Anxiety, Asthma, Bronchitis, Kidney Stones, Seizures Denies: Diabetes (Patient denied), Hepatitis (Patient denied), HIV (Patient denied), HTN (Patient denied), Sexually Transmitted Disease (Patient denied) Other PMH: cerebreal palsy - Surgical History Surgical History: Tonsillectomy - Family History Family History: States: Unknown Family Hx - Immunization History Hx Tetanus Toxoid Vaccination: Yes (a few months ago) Hx Influenza Vaccination: No Hx Pneumococcal Vaccination: No - Home Medications Home Medications: Ambulatory Orders Medication Instructions Recorded Phenytoin, Extended [Dilantin] 100 mg PO Q6 03/07/18 Phenytoin [Dilantin] 100 mg PO TID #90 udc 03/16/18 QUEtiapine [SEROquel] 50 mg PO HS #30 tab 03/16/18 traZODone [Desyrel] 100 mg PO HS PRN #30 tab 03/16/18 Ibuprofen [Motrin] 600 mg PO TID 7 Days tab 07/05/18 Magnesium Citrate [[facility] 150 ml PO DAILY PRN 5 Days bottle 07/05/18 Pharmacy Magnesium Citrate] - Allergies Allergies/Adverse Reactions: Allergies Allergy/AdvReac Type Severity Reaction Status Date / Time Hay Fever Allergy CONGESTION Uncoded 07/05/18 08:55 Review of Systems ROS Statement: Except As Marked, All Systems Reviewed And Found Negative Gastrointestinal: Positive for: Nausea, Vomiting, Abdominal Pain, Diarrhea Physical Exam - Reviewed Nursing Documentation Reviewed: Yes Vital Signs Reviewed: Yes - Physical Exam Appears: Positive for: Non-toxic, No Acute Distress Head Exam: Positive for: ATRAUMATIC, NORMAL INSPECTION, NORMOCEPHALIC Skin: Positive for: Normal Color, Warm, DRY Eye Exam: Positive for: EOMI, Normal appearance, PERRL ENT: Positive for: Normal ENT Inspection Neck: Positive for: Normal, Painless ROM, Supple Cardiovascular/Chest: Positive for: Regular Rate, Rhythm Respiratory: Positive for: CNT, Normal Breath Sounds Gastrointestinal/Abdominal: Positive for: Soft, Tenderness (RLQ) Back: Positive for: Normal Inspection. Negative for: L CVA Tenderness, R CVA Tenderness Extremity: Negative for: Normal ROM (limited in all extremities (baseline fpr pt. with cp)), Tenderness Neurologic/Psych: Positive for: Alert, Oriented - Laboratory Results Result Diagrams: 07/05/18 10:39 07/05/18 10:39 Interpretation Of Abn Labs: no acute - ECG O2 Sat by Pulse Oximetry: 99 Pulse Ox Interpretation: Normal - CT Scan/US ct Other Rad Studies (CT/US): Read By Radiologist Other Rad Interpretation: constipation; abd pain - Progress ED Course And Treament: 1445: Stable. AAOx3. Pain free. Tolerated PO. Fu with pcp. Disposition - Clinical Impression Clinical Impression: Abdominal pain, Constipation - Patient ED Disposition Is Patient to be Admitted: No Counseled Patient/Family Regarding: Studies Performed, Diagnosis, Need For Followup, Rx Given - Disposition Referrals: [facility] [Outside] - 07/09/18 Disposition: Routine/Home Disposition Time: 14:47 Condition: STABLE Additional Instructions: Return if not better in 3 days. Prescriptions: Ibuprofen [Motrin] 600 mg PO TID 7 Days tab Magnesium Citrate [[facility] Magnesium Citrate] 150 ml PO DAILY PRN 5 Days bottle PRN Reason: Constipation Instructions: Stomach Ache and Stomach Upset, Constipation in Adults Forms: [facility] (Citizen [place])
[2018-07-05] MEDS ORDERED: Iohexol 240 (50 ml) ONE (09:12)
[2018-07-05 10:51] LABS: BASO % 0.6 % (0.0-2.0); EOS # 0.3 K/uL (0.0-0.7); EOS % 5.5 % (0.0-4.0); HEMOGLOBIN 11.8 g/dL (12.0-18.0); LYMPH % 19.4 % (20.0-40.0); MEAN CELL VOLUME 85.8 fl (80.0-94.0); MEAN CORPUSCULAR HEMOGLOBIN 27.3 pg (27.0-31.0); MEAN CORPUSCULAR HGB CONC 31.8 g/dL (33.0-37.0); MEAN PLATELET VOLUME 8.2 fl (7.2-11.7); MONO # 0.3 K/uL (0.0-0.8); MONO % 5.4 % (0.0-10.0); NEUT # 3.6 K/uL (1.8-7.0); NEUT % 69.1 % (50.0-75.0); NRBC % 0.1 % (0.0-0.0); RBC 4.31 Mil/uL (4.40-5.90); RED CELL DISTRIBUTION WIDTH 14.7 % (11.5-14.5); WHITE BLOOD COUNT 5.3 K/uL (4.8-10.8)
[2018-07-05 10:58] LABS: ALB/GLOB RATIO 1.3 (1.0-2.1); ALBUMIN 4.1 g/dL (3.5-5.0); CALCIUM 8.9 mg/dL (8.4-10.2); GFR AFRICAN-AMERICAN > 60; GFR NON-AFRICAN AMERICAN > 60
[2018-07-05 11:08] LABS: ALT/SGPT 24 U/L (21-72); AST/SGOT 39 U/L (17-59); BLOOD UREA NITROGEN 7 mg/dl (9-20)
--- NOTE | 2018-07-05 12:26 | CT ---
Date of service: 07/05/2018 PROCEDURE: CT Abdomen and Pelvis with contrast HISTORY: Abdominal pain COMPARISON: 11/20/2017. TECHNIQUE: CT scan of the abdomen and pelvis was performed without administration of intravenous contrast. Oral contrast was administered. Coronal and sagittal reformatted images were obtained. Please note this examination is limited due to extensive streak artifacts from oral contrast in the bowel. Radiation dose: Total exam DLP = 280.63 mGy-cm. This CT exam was performed using one or more of the following dose reduction techniques: Automated exposure control, adjustment of the mA and/or kV according to patient size, and/or use of iterative reconstruction technique. FINDINGS: LOWER THORAX: The visualized lungs are clear. LIVER: Normal in size. No gross lesion or ductal dilatation. GALLBLADDER AND BILE DUCTS: No calcified gallstones. PANCREAS: Mild diffuse atrophy. No gross lesion or ductal dilatation. SPLEEN: Unremarkable. ADRENALS: Incompletely characterized is a 1.6 x 1.4 cm nodule in the right adrenal gland. No nodule in the left adrenal gland. KIDNEYS AND URETERS: There is a 4 mm nonobstructing stone in the lower pole of the left kidney. Both kidneys are normal in size without hydronephrosis or right-sided nephrolithiasis. There is a 2.9 cm simple cyst in the lower pole of the right kidney. VASCULATURE: Unremarkable. No aortic aneurysm. BOWEL: The small bowel loops are normal in caliber. There is large amount of stool in the colon with fecal impaction in the rectum. APPENDIX: Normal. No inflammatory changes in the right lower quadrant. PERITONEUM: Unremarkable. No free fluid. No free air. LYMPH NODES: Unremarkable. No enlarged lymph nodes. BLADDER: Unremarkable. REPRODUCTIVE: Unremarkable. BONES: No acute fracture. Diffuse bone demineralization and multilevel degenerative changes. 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 OTHER FINDINGS: There is a large right paraesophageal hiatal hernia. IMPRESSION: Limited examination due to extensive streak artifacts from oral contrast in the bowel. 1. No acute abdominal or pelvic abnormality. 2. Large paraesophageal hiatal hernia. 3. Constipation with fecal impaction in the rectum. No bowel obstruction. 4. 4 mm nonobstructing stone in the lower pole of the left kidney. 5. Incompletely characterized 1.6 cm nodule in the right adrenal gland. A dedicated CT scan of the abdomen without and with intravenous contrast with an adrenal gland protocol is recommended for further characterization.
[2018-07-05 14:28] VITALS: BP 143/90; PULSE 67; RESP 18; TEMP 98
[2018-07-05] MEDS ORDERED: Morphine 4 MG/ML VIAL ONE (14:30)
[2018-07-05] MEDS ORDERED: Magnesium Citrate Oral SOL (300 ml) PO ONE (14:41)
[2018-07-05] MEDS ORDERED: Morphine 4 MG/ML VIAL IV ONE (14:45)
[2018-07-05] MEDS ORDERED: Magnesium Citrate Oral SOL (300 ml) ONE (15:10)
== END 2018-07-05 15:25 | disposition home or self-care (01) ==
LOC: H.ER 08:26
DX: R10.9 Unspecified abdominal pain (principal); K56.41 Fecal impaction
CPT/HCPCS: 74176; 80053; 85025; 96361; 96374; 96375; 99285; J1885; J2270; J2405; J7030; Q9966

== ENCOUNTER 2018-07-07 05:38 | Emergency (ER) | payer MEDICARE ==
[2018-07-07 05:39] VITALS: BMI 23.1
[2018-07-07 05:45] VITALS: O2SAT 99
--- NOTE | 2018-07-07 06:41 | ED PDOC ---
Lower Extremity Pain/Injury Time Seen by Provider: 07/07/18 05:56 Chief Complaint (Nursing): Lower Extremity Problem/Injury Chief Complaint (Provider): Lower Extremity Problem/Injury History Per: Patient History/Exam Limitations: no limitations Onset/Duration Of Symptoms: Hrs Current Symptoms Are (Timing): Still Present Additional Complaint(s): 57 y/o male with a PMHx of cerebral palsy, seizure disorder, depression and Heroin abuse brought in by EMS for evaluation of right sided pain s/p fall this morning. Patient states he was walking to the bathroom and fell on his right side hurting his right lower ribs, right flank and right hip. In addition, patient is also complaining of constipation for the last five days. Patient reports he has been taking a laxative and was going to have a bowel movement when he fell. Denies head injury, loss of consciousness, chest pain, dizziness, vomiting and abdominal pain. PMD: Sal Hadley Past Medical History Reviewed: Historical Data, Nursing Documentation, Vital Signs Vital Signs: Last Vital Signs Temp 98 F 07/07/18 05:41 Pulse 80 07/07/18 05:41 Resp 16 07/07/18 05:41 BP 118/101 H 07/07/18 05:41 Pulse Ox 99 07/07/18 05:41 - Medical History PMH: Anxiety, Asthma, Bronchitis, Kidney Stones, Chronic Kidney Disease, Seizures Denies: Diabetes (Patient denied), Hepatitis (Patient denied), HIV (Patient denied), HTN (Patient denied), Sexually Transmitted Disease (Patient denied) - Surgical History Surgical History: Appendectomy, Tonsillectomy - Family History Family History: States: Unknown Family Hx - Immunization History Hx Tetanus Toxoid Vaccination: Yes (a few months ago) Hx Influenza Vaccination: No Hx Pneumococcal Vaccination: No - Home Medications Home Medications: Ambulatory Orders Medication Instructions Recorded Phenytoin, Extended [Dilantin] 100 mg PO Q6 03/07/18 Phenytoin [Dilantin] 100 mg PO TID #90 udc 03/16/18 QUEtiapine [SEROquel] 50 mg PO HS #30 tab 03/16/18 traZODone [Desyrel] 100 mg PO HS PRN #30 tab 03/16/18 Ibuprofen [Motrin] 600 mg PO TID 7 Days tab 07/05/18 Magnesium Citrate [[facility] 150 ml PO DAILY PRN 5 Days bottle 07/05/18 Pharmacy Magnesium Citrate] Naproxen [Naprosyn] 500 mg PO BID PRN #15 tablet 07/07/18 - Allergies Allergies/Adverse Reactions: Allergies Allergy/AdvReac Type Severity Reaction Status Date / Time Hay Fever Allergy CONGESTION Uncoded 07/05/18 08:55 Review of Systems ROS Statement: Except As Marked, All Systems Reviewed And Found Negative Cardiovascular: Negative for: Chest Pain Gastrointestinal: Positive for: Abdominal Pain (right flank pain) Musculoskeletal: Positive for: Other (Right lower rib and right hip pain) Neurological: Negative for: Dizziness Physical Exam - Reviewed Nursing Documentation Reviewed: Yes Vital Signs Reviewed: Yes - Physical Exam Appears: Positive for: No Acute Distress (Comfortable) Head Exam: Positive for: ATRAUMATIC, NORMAL INSPECTION Skin: Positive for: Normal Color, Warm, Dry Eye Exam: Positive for: Normal appearance, EOMI, PERRL Neck: Positive for: Normal, Painless ROM, Supple Cardiovascular/Chest: Positive for: Regular Rate, Rhythm. Negative for: Chest Non Tender (Chest wall is tender in the right lower ribs region. No ecchymosis ) , Murmur Respiratory: Positive for: Normal Breath Sounds. Negative for: Respiratory Distress Gastrointestinal/Abdominal: Positive for: Normal Exam, Soft, Tenderness (Right flank tenderness. No ecchymosis ) Back: Positive for: Normal Inspection. Negative for: L CVA Tenderness, R CVA Tenderness, Vertebral Tenderness Extremity: Positive for: Normal ROM. Negative for: Tenderness (to the right hip ), Deformity (to the hip ), Swelling (to the right hip) Neurologic/Psych: Positive for: Alert, Oriented. Negative for: Motor/Sensory Deficits Comments: (+) distal pulses - ECG O2 Sat by Pulse Oximetry: 99 (RA) Pulse Ox Interpretation: Normal Medical Decision Making Medical Decision Making: Time: 0620 Impression: Right flank, right hip and right rib pain s/p mechanical fall. Plan: -- CT Abd/Pelvis w/o PO or IV Contrast -- Ribs 2 Views RT XR -- Toradol 15 mg IM -- Hip 1 View w/ Pelvis RT XR Time: 0700 -- Patient endorsed to Dr. Portillo, pending XRs and CT. Scribe Attestation: Documented by Laura Carrera acting as a scribe for Dr. Franck Paul MD. Provider Scribe Attestation: All medical record entries made by the Scribe were at my direction and personally dictated by me. I have reviewed the chart and agree that the record accurately reflects my personal performance of the history, physical exam, medical decision making, and the department course for this patient. I have also personally directed, reviewed, and agree with the discharge instructions and disposition. Disposition - Clinical Impression Clinical Impression: Hip pain - Patient ED Disposition Is Patient to be Admitted: Transfer of Care Counseled Patient/Family Regarding: Studies Performed, Diagnosis - Disposition Referrals: Sal Hadley MD [Staff Provider] - Disposition: Transfer of Care Disposition Time: 07:00 Condition: STABLE Prescriptions: Naproxen [Naprosyn] 500 mg PO BID PRN #15 tablet PRN Reason: Pain, Moderate (4-7) Instructions: Hip Pain Patient Signed Over To: Suzi Portillo
--- NOTE | 2018-07-07 07:22 | ED PDOC ---
- ECG O2 Sat by Pulse Oximetry: 99 (RA) Pulse Ox Interpretation: Normal Medical Decision Making Medical Decision Making: Time: 0700 -- Patient endorsed to me by Dr. Paul, pending XRs and CT. Scribe Attestation: Documented by Laura Carrera acting as a scribe for Dr. Suzi Portillo MD. Provider Scribe Attestation: All medical record entries made by the Scribe were at my direction and personally dictated by me. I have reviewed the chart and agree that the record accurately reflects my personal performance of the history, physical exam, medical decision making, and the department course for this patient. I have also personally directed, reviewed, and agree with the discharge instructions and disposition. Disposition - Disposition Condition: FAIR Forms: [facility] ([place])
[2018-07-07 09:04] VITALS: BP 124/74; PULSE 88; RESP 20; TEMP 98.1
--- NOTE | 2018-07-07 15:38 | RAD ---
Date of service: 07/07/2018 PROCEDURE: Radiographs of the Chest and Right Ribs. HISTORY: rib pain injury fall COMPARISON: None available. TECHNIQUE: Frontal radiograph of the chest and multiple oblique radiographs of the right ribs were obtained. FINDINGS: RIGHT RIBS: No fracture or focal lesion visualized. LUNGS: Clear. PLEURA: No pneumothorax or pleural fluid. CARDIOVASCULAR: Normal sized heart. No pulmonary vascular congestion. OTHER FINDINGS: None. IMPRESSION: Unremarkable radiographs of the chest and right ribs. No right rib fracture.
--- NOTE | 2018-07-07 15:39 | RAD ---
PROCEDURE: Right Hip Radiographs. HISTORY: right hip pain injury fall COMPARISON: None. FINDINGS: BONES: Normal. No fracture. JOINTS: Normal. SOFT TISSUES: Normal. OTHER FINDINGS: None. IMPRESSION: Normal radiographs of right hip.
--- NOTE | 2018-07-07 18:21 | CT ---
Date of service: 07/07/2018 PROCEDURE: CT Abdomen and Pelvis without intravenous contrast HISTORY: right flank pain injury COMPARISON: 07/05/2018 TECHNIQUE: Without contrast.. Contrast dose: 0 Radiation dose: Total exam DLP = 315.76 mGy-cm. This CT exam was performed using one or more of the following dose reduction techniques: Automated exposure control, adjustment of the mA and/or kV according to patient size, and/or use of iterative reconstruction technique. Please note that examination is limited due to extensive patient motion artifact. FINDINGS: LOWER THORAX: No infiltrate/ pleural effusion. Moderate paraesophageal hiatal hernia containing both stomach and mesenteric fat. LIVER: Unremarkable. No gross lesion or ductal dilatation. GALLBLADDER AND BILE DUCTS: Unremarkable. PANCREAS: Moderate fatty atrophy. No mass. No pancreatic ductal dilatation. SPLEEN: Unremarkable. ADRENALS: Unremarkable. No mass. KIDNEYS AND URETERS: Small nonobstructing calculus lower pole left kidney. Size cannot be estimated due to extensive patient motion artifact. Right lower pole 3.4 cm cortical cyst. This measures 11 Hounsfield units in attenuation. No left renal mass. No right renal calculus. No hydronephrosis. VASCULATURE: Unremarkable. No aortic aneurysm. BOWEL: Mild retained feces. No bowel obstruction. Circumferential mural thickening of the rectum. Nonspecific. Consider correlation with colonoscopy. APPENDIX: Not identified. No secondary findings to suggest acute appendicitis, however. PERITONEUM: Unremarkable. No free fluid. No free air. LYMPH NODES: Unremarkable. No enlarged lymph nodes. BLADDER: Poorly distended. Suboptimally evaluated. REPRODUCTIVE: Small prostate. BONES: Bilateral L5 pars defects with grade 1 anterolisthesis at L5-S1. No acute fracture. OTHER FINDINGS: None. IMPRESSION: Small nonobstructing calculus lower pole left kidney. Circumferential mural thickening of rectum, nonspecific. Consider correlation with colonoscopy. Moderate paraesophageal hiatal hernia. No acute abnormality. The preliminary findings for this examination were reported by [employer] at 8:30 a.m. on 07/07/2018. There is discordant of this report with the preliminary findings. Circumferential rectal mural thickening was not described in the preliminary report of this examination.
--- NOTE | 2018-07-09 17:44 | ED PDOC ---
ED Additional Note - Physician Additional Note Physician Additional Note: 07/09/19 17:45 CT A/P : IMPRESSION: Small nonobstructing calculus lower pole left kidney. Circumferential mural thickening of rectum, nonspecific. Consider correlation with colonoscopy. Moderate paraesophageal hiatal hernia. No acute abnormality. The preliminary findings for this examination were reported by [employer] at 8:30 a.m. on 07/07/2018. There is discordant of this report with the preliminary findings. Circumferential rectal mural thickening was not described in the preliminary report of this examination. Patient called, message left, will leave results in PA review folder for a 2nd call attempt.
== END 2018-07-07 10:28 | disposition home or self-care (01) ==
LOC: H.ER 05:38
DX: J45.909 Unspecified asthma, uncomplicated (principal); N18.9 Chronic kidney disease, unspecified; Z87.442 Personal history of urinary calculi; R56.9 Unspecified convulsions; W01.0XXA Fall on same level from slipping, tripping and stumbling without subsequent striking against object, initial encounter; Y92.009 Unspecified place in unspecified non-institutional (private) residence as the place of occurrence of the external cause
CPT/HCPCS: 71100; 73501; 74176; 96372; 99285; J1885